=== PATIENT | male | born 1960 | race Caucasian/White ===

== ENCOUNTER 2016-06-11 18:33 | Inpatient (IN) | payer BC, OTHER ==
[2016-06-11 19:12] VITALS: BMI 19.1
--- NOTE | 2016-06-11 19:48 | HP ---
[id number] 4d 4-Moderate,w/Arms Extend Anxiety: 4-Mod. Anxious/Guarded Agitation: 4-Moderately Restless Paroxysmal Sweats: 1-Minimal Palms Moist Orientation: 1-Uncertain about Date Tacttile Disturbances: 0-None Auditory Disturbances: 0-None Visual Disturbances: 0-None Headache: 2-Mild CIWA-Ar Total Score: 17 Admission [facility] Chief Complaint: WITHDRAWAL SX Allergies/Adverse Reactions: Allergies Allergy/AdvReac Type Severity Reaction Status Date / Time peanut Allergy Mild Hives Verified 04/18/16 11:57 shellfish derived Allergy Mild Hives Verified 04/18/16 11:57 oxycodone HCl [From Percocet] AdvReac Severe Verified 04/18/16 11:57 EGG WHITE Allergy Mild Hives Uncoded 04/18/16 11:57 History of Present Illness: 55 YEARS OLD MALE WITH LONG HISTORY OF ALCOHOL NICOTINE DEPENDENCE, ASTHMA COPD GERD ANXIETY CHRONIC PANCRETITIS COLITIS, IS ADMITTED TO DETOX Exam Limitations: No Limitations - Ebola screening Have you traveled outside of the country in the last 21 days: No Have you had contact with anyone from an Ebola affected area: No Have you been sick,other than usual withdrawal symptoms: No Do you have a fever: No - Review of Systems Constitutional: Chills, Loss of Appetite, Changes in sleep, Unintentional Wgt. Loss EENT: reports: No Symptoms Reported Respiratory: reports: SOB with Exertion Cardiac: reports: Palpitations GI: reports: Nausea, Poor Appetite, Poor Fluid Intake, Indigestion, Abdominal cramping : reports: No Symptoms Reported Musculoskeletal: reports: Joint Pain, Muscle Pain Integumentary: reports: No Symptoms Reported Neuro: reports: Seizure (2014), Tremors Endocrine: reports: No Symptoms Reported Hematology: reports: No Symptoms Reported Psychiatric: reports: Judgement Intact, Anxious Other Systems: Reviewed and Negative Patient History - Patient Medical History Hx Anemia: No Hx Asthma: Yes (ON ALBUTEROL INHALER) Hx Chronic Obstructive Pulmonary Disease (COPD): Yes Hx Cancer: No Hx Cardiac Disorders: No Hx Congestive Heart Failure: No Hx Hypertension: No Hx Hypercholesterolemia: No Hx Pacemaker: No HX Cerebrovascular Accident: No Hx Seizures: Yes (alcohol related, jun 2015) Hx Dementia: No Hx Diabetes: No Hx Gastrointestinal Disorders: Yes (pancreatitis, colitis) Hx Liver Disease: No Hx Genitourinary Disorders: No Hx Sexually Transmitted Disorders: No Hx Renal Disease (ESRD): No Hx Thyroid Disease: No Hx Human Immunodeficiency Virus (HIV): No (LAST 12/27) Hx Hepatitis C: No Hx Depression: Yes (ANXIETY) Hx Suicide Attempt: No Hx Bipolar Disorder: No Hx Schizophrenia: No - Patient Surgical History Past Surgical History: Yes Hx Neurologic Surgery: No Hx Cataract Extraction: No Hx Cardiac Surgery: No Hx Lung Surgery: Yes (lung biopsy jun 2015 at , chest tube) Hx Breast Surgery: No Hx Breast Biopsy: No Hx Abdominal Surgery: Yes (LEFT INGUINAL HERNIA REPAIR AT AGE OF 4 YEARS) Hx Appendectomy: No Hx Cholecystectomy: No Hx Genitourinary Surgery: No Hx Orthopedic Surgery: No Other Surgical History: Hernia repair at 4yrs old Anesthesia Reaction: No - PPD History Previous Implant?: Yes Documented Results: Negative w/proof Implanted On Prior [facility] Admission?: Yes Date: 09/12/15 Results: 0 mm PPD to be Administered?: No - Smoking Cessation Smoking history: Current every day smoker Have you smoked in the past 12 months: Yes Aproximately how many cigarettes per day: 30 Cigars Per Day: 0 Hx Chewing Tobacco Use: No Initiated information on smoking cessation: Yes 'Breaking Loose' booklet given: 06/11/16 - Substance & Tx. History Hx Alcohol Use: Yes Hx Substance Use: No Substance Use Type: Alcohol Hx Substance Use Treatment: Yes - Substances Abused Alcohol Route: Oral Frequency: Daily Amount used: LIQUOR- 3 PINTS Age of first use: 17 Date of Last Use: 06/11/16 Family Disease History - Family Disease History Family Disease History: Other: Father (etoh , renal, ), Mother (etoh, sclerodoerma, ), Brother (schizophrenia) Admission Physical Exam S - Vital Signs Vital Signs: Vital Signs - 24 hr 06/11/16 19:08 Temperature 96.7 F L Pulse Rate 118 H Respiratory 20 Rate Blood Pressure 127/91 - Physical General Appearance: Yes: Appropriately Dressed, Moderate Distress, Alcohol on Breath, Thin, Tremorous, Irritable, Sweating, Anxious HEENTM: Yes: Hearing grossly Normal, Normal ENT Inspection, Normocephalic, Normal Voice Respiratory: Yes: Chest Non-Tender, Lungs Clear, Normal Breath Sounds, Decreased Breath Sounds (RIGHT MID LOBE), No Respiratory Distress, No Accessory Muscle Use, Hyperresonant, Inspiration Neck: Yes: Supple, Trachea in good position Breast: Yes: Breasts Symetrical Cardiology: Yes: Regular Rhythm, S1, S2, Tachycardia Abdominal: Yes: Non Tender, Soft, Increased Bowel Sounds Genitourinary: Yes: Within Normal Limits Back: Yes: Normal Inspection Musculoskeletal: Yes: full range of Motion, Gait Steady Extremities: Yes: Normal Range of Motion, Non-Tender, Tremors Neurological: Yes: Alert, Motor Strength 5/5, Normal Response, Depressed Affect Integumentary: Yes: Warm Lymphatic: Yes: Within Normal Limits - Diagnostic (1) Weight loss Current Visit: Yes Status: Acute Comment: ensure (2) Alcohol dependence with uncomplicated withdrawal Current Visit: Yes Status: Acute (3) Anxiety disorder Current Visit: Yes Status: Suspected Qualifiers: Anxiety disorder type: other mixed anxiety disorder Qualified Code(s ): F41.3 - Other mixed anxiety disorders (4) COPD (chronic obstructive pulmonary disease) Current Visit: Yes Status: Acute Qualifiers: COPD type: chronic bronchitis Chronic bronchitis type: simple Qualified Code(s): J41.0 - Simple chronic bronchitis (5) Chronic GERD Current Visit: Yes Status: Chronic (6) Nicotine dependence Current Visit: Yes Status: Acute Qualifiers: Nicotine product type: cigarettes Substance use status: uncomplicated Qualified Code(s): F17.210 - Nicotine dependence, cigarettes, uncomplicated (7) Ulcerative colitis Current Visit: Yes Status: Chronic Qualifiers: Ulcerative colitis location: unspecified ulcerative colitis location Digestive disease complication type: without complication Qualified Code( s): K51.90 - Ulcerative colitis, unspecified, without complications (8) Nodule of apex of right lung Current Visit: Yes Status: Chronic Comment: 04/2016 nodule biopsy negative - f/u chest x ray monthly, 05/2016 last x ray, Cleared for Admission [facility] - Detox or Rehab [facility] Level of Care: Medically Managed Detox Regimen/Protocol: Librium [facility] Breath Alcohol Content Breath Alcohol Content: 0.292 Urine Drug Screen - Control Is Test Valid: Yes - Results Drug Screen Negative: Yes
[2016-06-11] MEDS ORDERED: LOPERAMIDE HCL 2 MG CAPSULE PO PRN (19:53)
[2016-06-11] MEDS ORDERED: P-EPHED 60MG/TRIPROLIDI 2.5MG TABLET PO PRN (19:53)
[2016-06-11] MEDS ORDERED: MAGNESIUM CITRATE 300 ML BOTTLE PO PRN (19:53)
[2016-06-11] MEDS ORDERED: MAG HYDROX/AL HYDROX/SIMETH 30 ML UNIT-DOSE CUP PO PRN (19:53)
[2016-06-11] MEDS ORDERED: MAGNESIUM HYDROX 2400MG/30ML ORAL SUSPENSION 30 ML CUP PO PRN (19:53)
[2016-06-11] MEDS ORDERED: guaiFENesin/D-METHORPHAN HB 10 ML UNIT-DOSE CUPS PO PRN (19:53)
[2016-06-11] MEDS ORDERED: ACETAMINOPHEN 325 MG TABLET (FP) PO PRN (19:53)
[2016-06-11] MEDS ORDERED: IBUPROFEN 400 MG TABLET (FP) PO PRN (19:53)
[2016-06-11] MEDS ORDERED: MENTHOL/PHENOL 1 EACH UD MM PRN (19:53)
[2016-06-11] MEDS ORDERED: chlordiazePOXIDE HCL 25 MG CAPSULE PO ONE (19:58)
[2016-06-11] MEDS ORDERED: NICOTINE POLACRILEX 2 MG GUM BUC PRN (19:58)
[2016-06-11] MEDS ORDERED: hydrOXYzine PAMOATE 50 MG CAPSULE (FP) PO PRN (19:58)
[2016-06-11] MEDS ORDERED: ALBUTEROL SO4 6.7 GM HFA INHALER IH PRN (20:02)
[2016-06-11] MEDS ORDERED: MESALAMINE 800 MG TABLET.DR PO SCH (22:00)
[2016-06-11] MEDS: THIAMINE HCL 100 MG TABLET (FP) PO SCH (22:38)
[2016-06-11] MEDS: BUDESONIDE/FORMETEROL FUMARATE 80/4.5 mcg INHALER IH SCH (22:38)
[2016-06-11] MEDS: RANITIDINE HCL 150 MG TABLET (FP) PO SCH (22:39)
[2016-06-11] MEDS: chlordiazePOXIDE HCL 25 MG CAPSULE PO SCH (22:39)
[2016-06-11] MEDS: diphenhydrAMINE HCL 50 MG CAPSULE PO PRN (22:39)
[2016-06-12] MEDS: chlordiazePOXIDE HCL 25 MG CAPSULE PO SCH ×4 (05:29→22:21)
[2016-06-12] MEDS: LIPASE/PROTEASE/AMYLASE 6,000 UNIT CAPSULE PO SCH ×3 (07:42→16:37)
[2016-06-12] MEDS: RANITIDINE HCL 150 MG TABLET (FP) PO SCH ×2 (10:11→22:21)
[2016-06-12] MEDS: PRENATAL VITAMINS W/ FOLIC ACID TABLET (FP) PO SCH (10:11)
[2016-06-12] MEDS: BUDESONIDE/FORMETEROL FUMARATE 80/4.5 mcg INHALER IH SCH ×2 (10:11→22:28)
[2016-06-12] MEDS: NICOTINE 21 MG/24 HOURS TOPICAL PATCH TD SCH (10:12)
[2016-06-12] MEDS: MESALAMINE 800 MG TABLET.DR PO SCH ×4 (10:13→22:21)
[2016-06-12 10:58] LABS: MCH 34.5 pg (25.7-33.7); MCHC 33.6 g/dl (32.0-35.9); MEAN CELL VOLUME 102.6 fl (80-96); MEAN PLT VOLUME 9.8 fl (7.5-11.1); PLATELET COUNT 191 K/MM3 (134-434); RDW 13.9 % (11.9-15.9); WHITE BLOOD COUNT 7.8 K/mm3 (4.0-10.0)
[2016-06-12 11:24] LABS: ALBUMIN 3.6 g/dl (3.4-5.0); ALK PHOS 75 U/L (45-117); ANION GAP 6 (8-16); BILIRUBIN,TOTAL 0.3 mg/dL (0.2-1.0); CALCIUM 8.6 mg/dL (8.5-10.1); CO2 28 mmol/L (21-32); CREATININE 0.8 mg/dL (0.7-1.3); GLUCOSE,RANDOM 84 mg/dL (74-106); SGOT/AST 19 U/L (15-37); SGPT/ALT 28 U/L (12-78); TOT PROT 6.3 g/dl (6.4-8.2)
--- NOTE | 2016-06-12 12:45 | CONSULT ---
[facility] Psychiatric Consult - Data Date of interview: 06/12/16 Admission source: [facility] Identifying data: This is one of multiple admissions to [facility] for this 55 y/ o male seeking detox treatment on for alcohol dependence.Patient is a without children,domiciled,unemployed and supported on Disability benefits. Substance Abuse History: - Smoking Cessation. Smoking history: Current every day smoker. Have you smoked in the past 12 months: Yes. Aproximately how many cigarettes per day: 30. Cigars Per Day: 0. Hx Chewing Tobacco Use: No. Initiated information on smoking cessation: Yes. 'Breaking Loose' booklet given : 06/11/16. - Substance & Tx. History. Hx Alcohol Use: Yes. Hx Substance Use : No. Substance Use Type: Alcohol. Hx Substance Use Treatment: Yes. - Substances Abused. Alcohol. Route: Oral. Frequency: Daily. Amount used: LIQUOR- 3 PINTS. Age of first use: 17. Date of Last Use: 06/11/16. Confirmed by patient. Medical History: Significant for a history of bronchial asthma/COPD,GERD, pancreatitis,alcohol-related seizure and Ulcerative Colitis.Noted history of left inguinal hernioraphy. Psychiatric History: No change in personal history since encounter of 2015.History as follows : diagnosed with MDD in 1994.No previous history of psychiatric hospitalizations.Patient used to be on Paxil 30 mg po daily + Buspar 30 mg po HS (prescribed by primary care provider).Mr Rodriguez indicates ,in this interview,that he "would like to restart treatment only with buspar in two divided doses of 15 mg per day.No reported history of suicide attempts. Physical/Sexual Abuse/Trauma History: Patient denies. Additional Comment: Drug screen is negative. Mental Status Exam - Mental Status Exam Alert and Oriented to: Time, Place, Person Cognitive Function: Good Patient Appearance: Well Groomed Mood: Nervous, Anxious, Apprehensive Affect: Mood Congruent Patient Behavior: Appropriate, Cooperative Speech Pattern: Clear, Appropriate Voice Loudness: Normal Thought Process: Goal Oriented Thought Disorder: Not Present Hallucinations: Denies Suicidal Ideation: Denies Homicidal Ideation: Denies Insight/Judgement: Poor Sleep: Fair Appetite: Good Muscle strength/Tone: Normal Gait/Station: Normal Psychiatric Findings - Problem List ([place] 1, 2,3) (1) Alcohol dependence with uncomplicated withdrawal Current Visit: Yes Status: Acute (2) Nicotine dependence Current Visit: Yes Status: Acute Qualifiers: Nicotine product type: cigarettes Substance use status: uncomplicated Qualified Code(s): F17.210 - Nicotine dependence, cigarettes, uncomplicated (3) Substance induced mood disorder Current Visit: Yes Status: Acute (4) Anxiety disorder Current Visit: Yes Status: Chronic Qualifiers: Anxiety disorder type: other mixed anxiety disorder Qualified Code(s ): F41.3 - Other mixed anxiety disorders (5) COPD (chronic obstructive pulmonary disease) Current Visit: Yes Status: Acute Qualifiers: COPD type: chronic bronchitis Chronic bronchitis type: simple Qualified Code(s): J41.0 - Simple chronic bronchitis (6) Chronic GERD Current Visit: Yes Status: Chronic (7) Nodule of apex of right lung Current Visit: Yes Status: Chronic Comment: 04/2016 nodule biopsy negative - f/u chest x ray monthly, 05/2016 last x ray, (8) Chronic low back pain with right-sided sciatica Current Visit: Yes Status: Chronic (9) Ulcerative colitis Current Visit: Yes Status: Chronic Qualifiers: Ulcerative colitis location: unspecified ulcerative colitis location Digestive disease complication type: without complication Qualified Code( s): K51.90 - Ulcerative colitis, unspecified, without complications (10) Weight loss Current Visit: Yes Status: Acute Comment: ensure - Initial Treatment Plan Initial Treatment Plan: Psychoeducation.Detoxification.Buspar 15 mg po bid.Side effects/benefits discussed with patient.Patient agrees with this plan of care.Observation.
[2016-06-12] MEDS: chlordiazePOXIDE HCL 25 MG CAPSULE PO PRN (13:04)
[2016-06-12 13:05] LABS: HIV 1 & 2 AB NEGATIVE; HIV 1 AGp24 NEGATIVE
--- NOTE | 2016-06-12 15:42 | PN ---
S CIWA - CIWA Score Nausea/Vomitin-No Nausea/No Vomiting Muscle Tremors: 4-Moderate,w/Arms Extend Anxiety: 4-Mod. Anxious/Guarded Agitation: 3 Paroxysmal Sweats: 3 Orientation: 0-Oriented Tacttile Disturbances: 0-None Auditory Disturbances: 0-None Visual Disturbances: 0-None Headache: 0-None Present CIWA-Ar Total Score: 14 BHS Progress Note (SOAP) Subjective: SWEATING,ANXIETY,TREMORS,INTERRUPTED SLEEP,RESTLESS. Objective: 06/12/16 15:41 Vital Signs - 8 hr 06/12/16 06/12/16 10:23 13:36 Temperature 96.8 F L 98.6 F Pulse Rate 90 88 Respiratory 20 18 Rate Blood Pressure 122/83 125/86 Laboratory Tests 06/12/16 06/12/16 06/12/16 06:30 06:30 06:30 WBC 7.8 RBC 3.97 L Hgb 13.7 Hct 40.8 MCV 102.6 H MCHC 33.6 RDW 13.9 Plt Count 191 MPV 9.8 Sodium 141 Potassium 4.3 Chloride 107 Carbon Dioxide 28 Anion Gap 6 L BUN 15 D Creatinine 0.8 Creat Clearance w eGFR > 60 Random Glucose 84 Calcium 8.6 Total Bilirubin 0.3 D AST 19 D ALT 28 Alkaline Phosphatase 75 Total Protein 6.3 L Albumin 3.6 RPR Titer HIV 1&2 Antibody Screen Negative HIV P24 Antigen Negative 06/12/16 06:30 WBC RBC Hgb Hct MCV MCHC RDW Plt Count MPV Sodium Potassium Chloride Carbon Dioxide Anion Gap BUN Creatinine Creat Clearance w eGFR Random Glucose Calcium Total Bilirubin AST ALT Alkaline Phosphatase Total Protein Albumin RPR Titer Nonreactive HIV 1&2 Antibody Screen HIV P24 Antigen LABS NOTED Assessment: 06/12/16 15:42 WITHDRAWAL SX. Plan: CONTINUE DETOX
[2016-06-12 16:03] LABS: URINE APPEARANCE CLEAR; URINE BILIRUBIN NEGATIVE (NEGATIVE); URINE BLOOD NEGATIVE (NEGATIVE); URINE COLOR YELLOW; URINE GLUCOSE (UA) NEGATIVE (NEGATIVE); URINE KETONE NEGATIVE (NEGATIVE); URINE LEUK ESTERASE NEGATIVE (NEGATIVE); URINE NITRITE NEGATIVE (NEGATIVE); URINE PROTEIN NEGATIVE (NEGATIVE); URINE UROBILINOGEN NEGATIVE E.U./dl (0.2-1.0)
[2016-06-12] MEDS: diphenhydrAMINE HCL 50 MG CAPSULE PO PRN (22:21)
[2016-06-12] MEDS: THIAMINE HCL 100 MG TABLET (FP) PO SCH (22:21)
[2016-06-13] MEDS: chlordiazePOXIDE HCL 25 MG CAPSULE PO PRN (02:07)
[2016-06-13] MEDS: chlordiazePOXIDE HCL 25 MG CAPSULE PO SCH ×3 (05:22→17:39)
[2016-06-13] MEDS: LIPASE/PROTEASE/AMYLASE 6,000 UNIT CAPSULE PO SCH ×3 (07:54→17:38)
[2016-06-13 08:07] LABS: HEP B SURFACE AB Non Reactive (.)
[2016-06-13] MEDS: MESALAMINE 800 MG TABLET.DR PO SCH ×4 (10:37→22:31)
[2016-06-13] MEDS: RANITIDINE HCL 150 MG TABLET (FP) PO SCH ×2 (10:37→22:32)
[2016-06-13] MEDS: NICOTINE 21 MG/24 HOURS TOPICAL PATCH TD SCH (10:38)
[2016-06-13] MEDS: PRENATAL VITAMINS W/ FOLIC ACID TABLET (FP) PO SCH (10:38)
[2016-06-13] MEDS: BUDESONIDE/FORMETEROL FUMARATE 80/4.5 mcg INHALER IH SCH ×2 (10:39→22:30)
--- NOTE | 2016-06-13 12:59 | PN ---
S CIWA - CIWA Score Nausea/Vomitin-No Nausea/No Vomiting Muscle Tremors: 3 Anxiety: 4-Mod. Anxious/Guarded Agitation: 4-Moderately Restless Paroxysmal Sweats: 3 Orientation: 0-Oriented Tacttile Disturbances: 0-None Auditory Disturbances: 0-None Visual Disturbances: 0-None Headache: 0-None Present CIWA-Ar Total Score: 14 BHS Progress Note (SOAP) Subjective: SWEATING,INTERRUPTED SLEEP,ANXIETY,TREMORS,RESTLESS. Objective: 06/13/16 12:57 Vital Signs - 8 hr 06/13/16 06/13/16 06:07 09:54 Temperature 97.9 F 95.8 F L Pulse Rate 76 81 Respiratory 18 18 Rate Blood Pressure 119/77 131/89 Laboratory Tests 06/12/16 06/12/16 06/12/16 06:30 06:30 06:30 WBC 7.8 RBC 3.97 L Hgb 13.7 Hct 40.8 MCV 102.6 H MCHC 33.6 RDW 13.9 Plt Count 191 MPV 9.8 Sodium 141 Potassium 4.3 Chloride 107 Carbon Dioxide 28 Anion Gap 6 L BUN 15 D Creatinine 0.8 Creat Clearance w eGFR > 60 Random Glucose 84 Calcium 8.6 Total Bilirubin 0.3 D AST 19 D ALT 28 Alkaline Phosphatase 75 Total Protein 6.3 L Albumin 3.6 Urine Color Urine Appearance Urine pH Ur Specific [place] Urine Protein Urine Glucose (UA) Urine Ketones Urine Blood Urine Nitrite Urine Bilirubin Urine Urobilinogen Ur Leukocyte Esterase RPR Titer Hepatitis A Ab Total Hep Bs Antigen Hep Bs Antibody Hep B Core Total Ab HIV 1&2 Antibody Screen Negative HIV P24 Antigen Negative 06/12/16 06/12/16 06/12/16 06:30 06:30 13:00 WBC RBC Hgb Hct MCV MCHC RDW Plt Count MPV Sodium Potassium Chloride Carbon Dioxide Anion Gap BUN Creatinine Creat Clearance w eGFR Random Glucose Calcium Total Bilirubin AST ALT Alkaline Phosphatase Total Protein Albumin Urine Color Yellow Urine Appearance Clear Urine pH 7.0 D Ur Specific [place] 1.025 Urine Protein Negative Urine Glucose (UA) Negative Urine Ketones Negative Urine Blood Negative Urine Nitrite Negative Urine Bilirubin Negative Urine Urobilinogen Negative Ur Leukocyte Esterase Negative RPR Titer Nonreactive Hepatitis A Ab Total Negative Hep Bs Antigen Negative Hep Bs Antibody Non reactive Hep B Core Total Ab Negative HIV 1&2 Antibody Screen HIV P24 Antigen LABS NOTED Assessment: 06/13/16 12:57 WITHDRAWAL SX. Plan: CONTINUE DETOX
[2016-06-13 22:08] VITALS: BP 124/85; PULSE 96; TEMP 98.1
[2016-06-13] MEDS: THIAMINE HCL 100 MG TABLET (FP) PO SCH (22:31)
[2016-06-13] MEDS: diphenhydrAMINE HCL 50 MG CAPSULE PO PRN (22:32)
[2016-06-13] MEDS ORDERED: chlordiazePOXIDE 5 MG CAPSULE PO SCH (23:00)
[2016-06-14] MEDS: diphenhydrAMINE HCL 50 MG CAPSULE PO PRN (00:40)
--- NOTE | 2016-06-14 04:01 | PN ---
[facility] Progress Note Note: patient did not want to complete treatment,signed release ama
--- NOTE | 2016-06-14 04:08 | DS ---
[facility] Detox Discharge Summary Admission Date: 06/11/16 Discharge Date: 06/14/16 - History Present History: Alcohol Dependence Additional Comments: patient did not want to complete treatment,signed release ama,advise follow up with pmd for medical problem has his medications at home Pertinent Past History: copd nicotine dependence gerd pancreatitis ulcerative colitis - Physical Exam Results Vital Signs: Vital Signs Temperature 98.1 F 06/13/16 22:07 Pulse Rate 96 H 06/13/16 22:07 Respiratory Rate 18 06/14/16 00:10 Blood Pressure 124/85 06/13/16 22:07 O2 Sat by Pulse Oximetry (%) Pertinent Admission Physical Exam Findings: withdrawal symptom - Medication Discharge Medications: Ambulatory Orders Pantoprazole Sodium [Protonix] 40 mg PO DAILY 09/10/15 Albuterol Sulfate Inhaler - [Ventolin HFA Inhaler -] 2 inh PO Q4H PRN #1 inhaler 11/18/15 Lipase/Protease/Amylase [Eunice Azevedo 6,000 Units Capsule] 2 cap PO TIDCM #120 capsule. 11/18/15 Mesalamine [Asacol HD -] 800 mg PO QID #120 tablet. 11/18/15 Budesonide/Formeterol Fumarate [SYMBICORT 80/4.5mcg -] 2 inh PO BID 02/17/16 Buspirone HCl [Buspar -] 15 mg PO BID 04/18/16 Buspirone HCl [Buspar -] 15 mg PO BID #60 tablet 04/20/16 Buspirone HCl [Buspar -] 15 mg PO BID #60 tablet 06/12/16 - AMA Did Patient Leave Against Medical Advice: Yes
[2016-06-14] MEDS ORDERED: chlordiazePOXIDE HCL 10 MG CAPSULE PO SCH (23:00)
== END 2016-06-14 04:37 | disposition left against medical advice (07) | DRG 894 ==
LOC: YASAS 18:33 → Y3N 19:44
PROVIDERS: ADMIT Internal Medicine; ATTEND Internal Medicine
PROC: HZ2ZZZZ Detoxification Services for Substance Abuse Treatment (ICD-10-PCS; principal; 2016-06-11)
DX: F10.230 Alcohol dependence with withdrawal, uncomplicated (principal); K51.90 Ulcerative colitis, unspecified, without complications; F17.210 Nicotine dependence, cigarettes, uncomplicated; F19.24 Other psychoactive substance dependence with psychoactive substance-induced mood disorder; F41.3 Other mixed anxiety disorders; J45.909 Unspecified asthma, uncomplicated; J41.0 Simple chronic bronchitis; K21.9 Gastro-esophageal reflux disease without esophagitis; R00.0 Tachycardia, unspecified; R91.1 Solitary pulmonary nodule; Z87.19 Personal history of other diseases of the digestive system; Z86.69 Personal history of other diseases of the nervous system and sense organs; Z87.898 Personal history of other specified conditions
CPT/HCPCS: 36415; 80053; 81003; 85027; 86593; 86704; 86706; 86708; 87340; 87389; 93005; 93010

== ENCOUNTER 2016-08-07 10:36 | Inpatient (IN) | payer BC, OTHER ==
[2016-08-07 11:20] VITALS: BMI 19.1
--- NOTE | 2016-08-07 13:07 | HP ---
CIWA Score - CIWA Score Nausea/Vomitin Muscle Tremors: 3 Anxiety: 3 Agitation: 3 Paroxysmal Sweats: 2 Orientation: 0-Oriented Tacttile Disturbances: 2-Mild Itch/Numbness/Burn Auditory Disturbances: 2-Mild Harshness/Frighten Visual Disturbances: 2-Mild Sensitivity Headache: 2-Mild CIWA-Ar Total Score: 22 Admission ROS [facility] - HPI Chief Complaint: I NEED HELP TO STOP DRINKING Allergies/Adverse Reactions: Allergies Allergy/AdvReac Type Severity Reaction Status Date / Time peanut Allergy Mild Hives Verified 04/18/16 11:57 shellfish derived Allergy Mild Hives Verified 04/18/16 11:57 oxycodone HCl [From Percocet] AdvReac Severe Verified 04/18/16 11:57 EGG WHITE Allergy Mild Hives Uncoded 04/18/16 11:57 History of Present Illness: THIS 55 YEARS OLD MALE WITH ALCOHOL DEPENDENCE,WITHDRAWAL SYMPTOM,LAST DETOX SEIZURE ALCOHOL RELATED PANCREATITIS ASTHMA NICOTINE DEPENDENCE LONGEST PERIOD OF SOBRIETY 1 YEAR SEVERAL ADMISSIONS IN DETOX Exam Limitations: No Limitations - Ebola screening Have you traveled outside of the country in the last 21 days: No Have you had contact with anyone from an Ebola affected area: No Have you been sick,other than usual withdrawal symptoms: No Do you have a fever: No - Review of Systems Constitutional: Loss of Appetite, Malaise, Night Sweats, Changes in sleep, Weakness, Unintentional Wgt. Loss EENT: reports: Nose Congestion Respiratory: reports: No Symptoms reported Cardiac: reports: Palpitations GI: reports: Diarrhea, Nausea, Vomiting, Abdominal cramping : reports: No Symptoms Reported Musculoskeletal: reports: Back Pain, Muscle Pain Integumentary: reports: Dryness Neuro: reports: Headache, Tremors Endocrine: reports: No Symptoms Reported Hematology: reports: No Symptoms Reported Psychiatric: reports: Anxious, Depressed (INSOMNIA) Patient History - Patient Medical History Hx Anemia: No Hx Asthma: Yes (ON ALBUTEROL INHALER) Hx Chronic Obstructive Pulmonary Disease (COPD): Yes Hx Cancer: No Hx Cardiac Disorders: No Hx Congestive Heart Failure: No Hx Hypertension: No Hx Hypercholesterolemia: No Hx Pacemaker: No HX Cerebrovascular Accident: No Hx Seizures: Yes (alcohol related, jun 2015) Hx Dementia: No Hx Diabetes: No Hx Gastrointestinal Disorders: Yes (pancreatitis, colitis) Hx Liver Disease: No Hx Genitourinary Disorders: No Hx Sexually Transmitted Disorders: No Hx Renal Disease (ESRD): No Hx Thyroid Disease: No Hx Human Immunodeficiency Virus (HIV): No (LAST 12/27) Hx Hepatitis C: No Hx Depression: Yes (ANXIETY) Hx Suicide Attempt: No Hx Bipolar Disorder: No Hx Schizophrenia: No Other Medical History: NO SUICIDAL,NO HOMICIDAL - Patient Surgical History Past Surgical History: Yes Hx Neurologic Surgery: No Hx Cataract Extraction: No Hx Cardiac Surgery: No Hx Lung Surgery: Yes (lung biopsy jun 2015 at , chest tube) Hx Breast Surgery: No Hx Breast Biopsy: No Hx Abdominal Surgery: Yes (LEFT INGUINAL HERNIA REPAIR AT AGE OF 4 YEARS) Hx Appendectomy: No Hx Cholecystectomy: No Hx Genitourinary Surgery: No Hx Section: No Hx Orthopedic Surgery: No Other Surgical History: Hernia repair at 4yrs old Anesthesia Reaction: No - PPD History Previous Implant?: Yes Documented Results: Negative w/proof Date: 09/12/15 Results: 0 mm PPD to be Administered?: No - Smoking Cessation Smoking history: Current every day smoker Have you smoked in the past 12 months: Yes Aproximately how many cigarettes per day: 30 Cigars Per Day: 0 Hx Chewing Tobacco Use: No Initiated information on smoking cessation: Yes 'Breaking Loose' booklet given: 08/07/16 - Substance & Tx. History Hx Alcohol Use: Yes Hx Substance Use: No Substance Use Type: Alcohol Hx Substance Use Treatment: Yes ([facility] ) - Substances Abused Alcohol Route: Oral Frequency: Daily Amount used: Vodka 3 pints Age of first use: 17 Date of Last Use: 08/07/16 Family Disease History - Family Disease History Family Disease History: Other: Father (etoh , renal, ), Mother (etoh, sclerodoerma, ), Brother (schizophrenia) Admission Physical Exam [facility] - Vital Signs Vital Signs: Vital Signs - 24 hr 08/07/16 11:15 Temperature 98.6 F Pulse Rate 128 H Respiratory 20 Rate Blood Pressure 136/80 - Physical General Appearance: Yes: Moderate Distress, Tremorous, Irritable, Sweating, Anxious HEENTM: Yes: Nasal Congestion Respiratory: Yes: Lungs Clear, Other (NODULE LEFT LUNG S/P BIOPSY) Neck: Yes: Within Normal Limits Breast: Yes: Within Normal Limits Cardiology: Yes: Within Normal Limits, Regular Rhythm, Regular Rate, S1, S2 Abdominal: Yes: Within Normal Limits, Normal Bowel Sounds, Non Tender, Soft Genitourinary: Yes: Within Normal Limits Back: Yes: Muscle Spasm Musculoskeletal: Yes: Back pain, Joint Stiffness, Muscle Pain Extremities: Yes: Tremors Neurological: Yes: Within Normal Limits, 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 consultant 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 intact, Fully Oriented, Alert, Motor Strength 5/5 Integumentary: Yes: Dry Lymphatic: Yes: Within Normal Limits - Diagnostic (1) Alcohol dependence with uncomplicated withdrawal Current Visit: No Status: Acute (2) COPD (chronic obstructive pulmonary disease) Current Visit: No Status: Acute Qualifiers: Qualified Code(s): J41.0 - Simple chronic bronchitis (3) Weight loss Current Visit: No Status: Acute Comment: ensure (4) Nodule of apex of right lung Current Visit: No Status: Chronic Comment: 04/2016 nodule biopsy negative - f/u chest x ray monthly, 05/2016 last x ray, (5) Ulcerative colitis Current Visit: No Status: Chronic Qualifiers: Qualified Code(s): K51.90 - Ulcerative colitis, unspecified, without complications (6) MDD (major depressive disorder) Current Visit: No Status: Suspected (7) Acute alcoholic pancreatitis Current Visit: Yes Status: Acute (8) Alcohol related seizure Current Visit: Yes Status: Acute (9) Nicotine dependence Current Visit: No Status: Acute Qualifiers: Qualified Code(s): F17.210 - Nicotine dependence, cigarettes, uncomplicated (10) Chronic GERD Current Visit: No Status: Chronic Cleared for Admission [facility] - Detox or Rehab [facility] Level of Care: Medically Managed Detox Regimen/Protocol: Librium S Breath Alcohol Content Breath Alcohol Content: 0.111 Urine Drug Screen - Results Drug Screen Negative: Yes
[2016-08-07] MEDS ORDERED: ACETAMINOPHEN 325 MG TABLET (FP) PO PRN (13:17)
[2016-08-07] MEDS ORDERED: MAGNESIUM HYDROX 2400MG/30ML ORAL SUSPENSION 30 ML CUP PO PRN (13:17)
[2016-08-07] MEDS ORDERED: MAGNESIUM CITRATE 300 ML BOTTLE PO PRN (13:17)
[2016-08-07] MEDS ORDERED: IBUPROFEN 400 MG TABLET (FP) PO PRN (13:17)
[2016-08-07] MEDS ORDERED: MAG HYDROX/AL HYDROX/SIMETH 30 ML UNIT-DOSE CUP PO PRN (13:17)
[2016-08-07] MEDS ORDERED: LOPERAMIDE HCL 2 MG CAPSULE PO PRN (13:17)
[2016-08-07] MEDS ORDERED: guaiFENesin/D-METHORPHAN HB 10 ML UNIT-DOSE CUPS PO PRN (13:17)
[2016-08-07] MEDS ORDERED: MENTHOL/PHENOL 1 EACH UD MM PRN (13:17)
[2016-08-07] MEDS ORDERED: P-EPHED 60MG/TRIPROLIDI 2.5MG TABLET PO PRN (13:17)
[2016-08-07] MEDS ORDERED: ALBUTEROL SO4 6.7 GM HFA INHALER IH PRN (13:34)
[2016-08-07] MEDS ORDERED: chlordiazePOXIDE HCL 25 MG CAPSULE PO ONE (13:47)
[2016-08-07] MEDS: MESALAMINE 800 MG TABLET.DR PO SCH ×3 (14:14→22:20)
--- NOTE | 2016-08-07 14:35 | CONSULT ---
[facility] Psychiatric Consult - Data Date of interview: 08/07/16 Admission source: [facility] Identifying data: Another admission to [facility] for this 55 y/o male seeking detox treatment on for alcohol dependence.Patient is a without children,domiciled,unemployed and supported on Disability benefits. Substance Abuse History: - Smoking Cessation. Smoking history: Current every day smoker. Have you smoked in the past 12 months: Yes. Aproximately how many cigarettes per day: 30. Cigars Per Day: 0. Hx Chewing Tobacco Use: No. Initiated information on smoking cessation: Yes. 'Breaking Loose' booklet given : 08/07/16. - Substance & Tx. History. Hx Alcohol Use: Yes. Hx Substance Use : No. Substance Use Type: Alcohol. Hx Substance Use Treatment: Yes ([facility] ). Confirmed by the patient in this interview. Medical History: History of bronchial asthma/COPD,GERD,pancreatitis,alcohol- related seizure and Ulcerative Colitis.Noted history of left inguinal hernioraphy. Psychiatric History: Diagnosed with MDD.No previous history of psychiatric hospitalizations.Patient reports that he is no longer on Paxil but he is still prescribed Buspar 15 mg po bid by his primary care doctor.Mr Rodriguez requests that buspar be a component of this regimen of medications.No reported history of suicide attempts. Physical/Sexual Abuse/Trauma History: Patient denies. Mental Status Exam - Mental Status Exam Alert and Oriented to: Time, Place, Person Cognitive Function: Good Patient Appearance: Well Groomed Mood: Hopeful, Euthymic Affect: Appropriate, Normal Range Patient Behavior: Fatigued, Appropriate, Cooperative Speech Pattern: Clear, Appropriate Voice Loudness: Normal Thought Process: Goal Oriented Thought Disorder: Not Present Hallucinations: Denies Suicidal Ideation: Denies Homicidal Ideation: Denies Insight/Judgement: Fair Sleep: Well Appetite: Good Muscle strength/Tone: Normal Gait/Station: Normal Psychiatric Findings - Problem List ([place] 1, 2,3) (1) Alcohol dependence with uncomplicated withdrawal Current Visit: Yes Status: Acute (2) Nicotine dependence Current Visit: Yes Status: Acute Qualifiers: Nicotine product type: cigarettes Substance use status: uncomplicated Qualified Code(s): F17.210 - Nicotine dependence, cigarettes, uncomplicated (3) Substance induced mood disorder Current Visit: Yes Status: Acute (4) Anxiety disorder Current Visit: Yes Status: Chronic Qualifiers: Anxiety disorder type: other mixed anxiety disorder Qualified Code(s ): F41.3 - Other mixed anxiety disorders (5) COPD (chronic obstructive pulmonary disease) Current Visit: Yes Status: Chronic Qualifiers: COPD type: chronic bronchitis Chronic bronchitis type: simple Qualified Code(s): J41.0 - Simple chronic bronchitis (6) Chronic GERD Current Visit: Yes Status: Chronic (7) Chronic low back pain with right-sided sciatica Current Visit: Yes Status: Chronic (8) Nodule of apex of right lung Current Visit: Yes Status: Chronic Comment: 04/2016 nodule biopsy negative - f/u chest x ray monthly, 05/2016 last x ray, (9) Ulcerative colitis Current Visit: Yes Status: Chronic Qualifiers: Ulcerative colitis location: unspecified ulcerative colitis location Digestive disease complication type: without complication Qualified Code( s): K51.90 - Ulcerative colitis, unspecified, without complications - Initial Treatment Plan Initial Treatment Plan: Psychoeducation.Detoxification.Buspar 15 mg po bid.Side effects/benefits discussed with the patient.He agrees with this plan.Observation.
[2016-08-07 16:32] LABS: URINE APPEARANCE CLEAR; URINE BILIRUBIN NEGATIVE (NEGATIVE); URINE BLOOD NEGATIVE (NEGATIVE); URINE COLOR LTYELLOW; URINE GLUCOSE (UA) NEGATIVE (NEGATIVE); URINE KETONE NEGATIVE (NEGATIVE); URINE LEUK ESTERASE NEGATIVE (NEGATIVE); URINE NITRITE NEGATIVE (NEGATIVE); URINE PROTEIN NEGATIVE (NEGATIVE); URINE UROBILINOGEN NEGATIVE E.U./dl (0.2-1.0)
[2016-08-07] MEDS: LIPASE/PROTEASE/AMYLASE 6,000 UNIT CAPSULE PO SCH (17:06)
[2016-08-07] MEDS: chlordiazePOXIDE HCL 25 MG CAPSULE PO SCH ×2 (17:06→22:19)
[2016-08-07] MEDS: BUDESONIDE/FORMETEROL FUMARATE 80/4.5 mcg INHALER IH SCH (22:20)
[2016-08-07] MEDS: THIAMINE HCL 100 MG TABLET (FP) PO SCH (22:20)
[2016-08-08] MEDS: chlordiazePOXIDE HCL 25 MG CAPSULE PO SCH ×4 (05:35→22:12)
[2016-08-08] MEDS: LIPASE/PROTEASE/AMYLASE 6,000 UNIT CAPSULE PO SCH ×4 (07:39→17:19)
[2016-08-08 09:17] LABS: HIV 1 & 2 AB NEGATIVE; HIV 1 AGp24 NEGATIVE
[2016-08-08 10:06] LABS: MCH 34.3 pg (25.7-33.7); MCHC 33.5 g/dl (32.0-35.9); MEAN CELL VOLUME 102.3 fl (80-96); MEAN PLT VOLUME 9.6 fl (7.5-11.1); PLATELET COUNT 225 K/MM3 (134-434); RDW 14.2 % (11.9-15.9); WHITE BLOOD COUNT 7.9 K/mm3 (4.0-10.0)
[2016-08-08] MEDS: MESALAMINE 800 MG TABLET.DR PO SCH ×4 (10:11→22:12)
[2016-08-08] MEDS: BUDESONIDE/FORMETEROL FUMARATE 80/4.5 mcg INHALER IH SCH ×2 (10:12→22:13)
[2016-08-08] MEDS: PANTOPRAZOLE 40 MG TABLET (FP) PO SCH (10:12)
[2016-08-08] MEDS: PRENATAL VITAMINS W/ FOLIC ACID TABLET (FP) PO SCH (10:12)
[2016-08-08] MEDS: NICOTINE 21 MG/24 HOURS TOPICAL PATCH TD SCH (10:13)
[2016-08-08] MEDS ORDERED: BISACODYL 5 MG TABLET.DR (FP) PO ONE (10:30)
[2016-08-08 10:41] LABS: ALK PHOS 92 U/L (45-117); ANION GAP 12 (8-16); BILIRUBIN,TOTAL 0.2 mg/dL (0.2-1.0); CALCIUM 8.5 mg/dL (8.5-10.1); CO2 25 mmol/L (21-32); CREATININE 0.9 mg/dL (0.7-1.3); GLUCOSE,RANDOM 111 mg/dL (74-106); SGOT/AST 59 U/L (15-37); SGPT/ALT 99 U/L (12-78)
--- NOTE | 2016-08-08 12:41 | PN ---
S CIWA - CIWA Score Nausea/Vomitin-Int. Nausea w/Dry Heave Muscle Tremors: 3 Anxiety: 3 Agitation: 4-Moderately Restless Paroxysmal Sweats: No Perspiration Orientation: 0-Oriented Tacttile Disturbances: 1-Very Mild Itch/Numbness Auditory Disturbances: 0-None Visual Disturbances: 0-None Headache: 3-Moderate CIWA-Ar Total Score: 18 S Progress Note (SOAP) Subjective: Restlessness, Anxiety, interrupted sleep, chills, poor appetite Objective: Vital Signs Temperature 95.7 F L 08/08/16 10:00 Pulse Rate 86 08/08/16 10:00 Respiratory Rate 18 08/08/16 10:00 Blood Pressure 131/89 08/08/16 10:00 O2 Sat by Pulse Oximetry (%) Laboratory Last Values WBC 7.9 K/mm3 (4.0-10.0) 08/08/16 06:20 RBC 4.09 M/mm3 (4.00-5.60) 08/08/16 06:20 Hgb 14.0 GM/dL (11.7-16.9) 08/08/16 06:20 Hct 41.9 % (35.4-49) 08/08/16 06:20 MCV 102.3 fl (80-96) H 08/08/16 06:20 MCHC 33.5 g/dl (32.0-35.9) 08/08/16 06:20 RDW 14.2 % (11.9-15.9) 08/08/16 06:20 Plt Count 225 K/MM3 (134-434) 08/08/16 06:20 MPV 9.6 fl (7.5-11.1) 08/08/16 06:20 Sodium 143 mmol/L (136-145) 08/08/16 06:20 Potassium 4.1 mmol/L (3.5-5.1) 08/08/16 06:20 Chloride 106 mmol/L (98-107) 08/08/16 06:20 Carbon Dioxide 25 mmol/L (21-32) 08/08/16 06:20 Anion Gap 12 (8-16) 08/08/16 06:20 BUN 12 mg/dL (7-18) 08/08/16 06:20 Creatinine 0.9 mg/dL (0.7-1.3) 08/08/16 06:20 Creat Clearance w eGFR > 60 (>60) 08/08/16 06:20 Random Glucose 111 mg/dL (74-106) H D 08/08/16 06:20 Calcium 8.5 mg/dL (8.5-10.1) 08/08/16 06:20 Total Bilirubin 0.2 mg/dL (0.2-1.0) D 08/08/16 06:20 AST 59 U/L (15-37) H D 08/08/16 06:20 ALT 99 U/L (12-78) H D 08/08/16 06:20 Alkaline Phosphatase 92 U/L (45-117) D 08/08/16 06:20 Total Protein 7.0 g/dl (6.4-8.2) 08/08/16 06:20 Albumin 4.0 g/dl (3.4-5.0) 08/08/16 06:20 Urine Color Ltyellow 08/07/16 15:00 Urine Appearance Clear 08/07/16 15:00 Urine pH 6.0 (5.0-8.0) 08/07/16 15:00 Ur Specific [place] 1.011 (1.001-1.035) 08/07/16 15:00 Urine Protein Negative (NEGATIVE) 08/07/16 15:00 Urine Glucose (UA) Negative (NEGATIVE) 08/07/16 15:00 Urine Ketones Negative (NEGATIVE) 08/07/16 15:00 Urine Blood Negative (NEGATIVE) 08/07/16 15:00 Urine Nitrite Negative (NEGATIVE) 08/07/16 15:00 Urine Bilirubin Negative (NEGATIVE) 08/07/16 15:00 Urine Urobilinogen Negative E.U./dl (0.2-1.0) 08/07/16 15:00 Ur Leukocyte Esterase Negative (NEGATIVE) 08/07/16 15:00 Hepatitis C Antibody <0.1 s/co ratio (0.0-0.9) 08/07/16 13:00 HIV 1&2 Antibody Screen Negative 08/07/16 13:00 HIV P24 Antigen Negative 08/07/16 13:00 labs noted Assessment: Withdrawal Symptoms Plan: Ensure BID Continue Detox
--- NOTE | 2016-08-08 21:08 | EKG ---
Test Reason : Blood Pressure : / mmHG Vent. Rate : 111 BPM Atrial Rate : 111 BPM P-R Int : 164 ms QRS Dur : 100 ms QT Int : 320 ms P-R-T Axes : 058 072 046 degrees QTc Int : 435 ms SINUS TACHYCARDIA OTHERWISE NORMAL ECG NO PREVIOUS ECGS AVAILABLE Confirmed by CHRISTINE SEPULVEDA MD ([id number]) on 08/08/2016 9:07:51 PM Referred By: Confirmed By:CHRISTINE SEPULVEDA MD
[2016-08-08] MEDS: THIAMINE HCL 100 MG TABLET (FP) PO SCH (22:12)
[2016-08-08] MEDS: diphenhydrAMINE HCL 50 MG CAPSULE PO PRN (22:14)
[2016-08-09] MEDS: chlordiazePOXIDE HCL 25 MG CAPSULE PO PRN (01:37)
[2016-08-09] MEDS: diphenhydrAMINE HCL 50 MG CAPSULE PO PRN ×2 (01:37→22:12)
[2016-08-09] MEDS: chlordiazePOXIDE HCL 25 MG CAPSULE PO SCH ×2 (06:00→10:09)
[2016-08-09] MEDS: LIPASE/PROTEASE/AMYLASE 6,000 UNIT CAPSULE PO SCH ×3 (07:27→17:19)
[2016-08-09] MEDS: NICOTINE 21 MG/24 HOURS TOPICAL PATCH TD SCH (10:08)
[2016-08-09] MEDS: BUDESONIDE/FORMETEROL FUMARATE 80/4.5 mcg INHALER IH SCH ×2 (10:08→22:10)
[2016-08-09] MEDS: PANTOPRAZOLE 40 MG TABLET (FP) PO SCH (10:09)
[2016-08-09] MEDS: PRENATAL VITAMINS W/ FOLIC ACID TABLET (FP) PO SCH (10:09)
[2016-08-09] MEDS: MESALAMINE 800 MG TABLET.DR PO SCH ×4 (10:12→22:09)
[2016-08-09] MEDS: hydrOXYzine PAMOATE 50 MG CAPSULE (FP) PO PRN ×2 (12:56→17:20)
--- NOTE | 2016-08-09 15:46 | PN ---
S CIWA - CIWA Score Nausea/Vomitin Muscle Tremors: 4-Moderate,w/Arms Extend Anxiety: 4-Mod. Anxious/Guarded Agitation: 2 Paroxysmal Sweats: No Perspiration Orientation: 0-Oriented Tacttile Disturbances: 0-None Auditory Disturbances: 0-None Visual Disturbances: 0-None Headache: 2-Mild CIWA-Ar Total Score: 15 BHS Progress Note (SOAP) Subjective: Anxious, sweating, nausea, tremor; c/o itchy mole/lesion near left ear requesting anti-itch cream (patient stated he has appt to remove it soon) Objective: 08/09/16 15:44 Last Vital Signs Temp Pulse Resp BP Pulse Ox 97.2 F L 83 18 116/80 08/09/16 13:34 08/09/16 13:34 08/09/16 13:34 08/09/16 13:34 Laboratory Tests 08/07/16 08/07/16 08/07/16 13:00 13:00 15:00 WBC RBC Hgb Hct MCV MCHC RDW Plt Count MPV Sodium Potassium Chloride Carbon Dioxide Anion Gap BUN Creatinine Creat Clearance w eGFR Random Glucose Calcium Total Bilirubin AST ALT Alkaline Phosphatase Total Protein Albumin Urine Color Ltyellow Urine Appearance Clear Urine pH 6.0 Ur Specific [place] 1.011 Urine Protein Negative Urine Glucose (UA) Negative Urine Ketones Negative Urine Blood Negative Urine Nitrite Negative Urine Bilirubin Negative Urine Urobilinogen Negative Ur Leukocyte Esterase Negative RPR Titer Hepatitis C Antibody <0.1 HIV 1&2 Antibody Screen Negative HIV P24 Antigen Negative 08/08/16 08/08/16 08/08/16 06:20 06:20 06:20 WBC 7.9 RBC 4.09 Hgb 14.0 Hct 41.9 MCV 102.3 H MCHC 33.5 RDW 14.2 Plt Count 225 MPV 9.6 Sodium 143 Potassium 4.1 Chloride 106 Carbon Dioxide 25 Anion Gap 12 BUN 12 Creatinine 0.9 Creat Clearance w eGFR > 60 Random Glucose 111 H D Calcium 8.5 Total Bilirubin 0.2 D AST 59 H D ALT 99 H D Alkaline Phosphatase 92 D Total Protein 7.0 Albumin 4.0 Urine Color Urine Appearance Urine pH Ur Specific [place] Urine Protein Urine Glucose (UA) Urine Ketones Urine Blood Urine Nitrite Urine Bilirubin Urine Urobilinogen Ur Leukocyte Esterase RPR Titer Nonreactive Hepatitis C Antibody HIV 1&2 Antibody Screen HIV P24 Antigen Labs noted Assessment: 08/09/16 15:44 Withdrawal symptoms c/o itchy mole/lesion near left ear, chronic Plan: Continue detox Itchy mole/lesion near left ear: hydrocortisone cream 1% bid
[2016-08-09] MEDS: chlordiazePOXIDE 5 MG CAPSULE PO SCH ×2 (17:19→22:09)
[2016-08-09] MEDS: THIAMINE HCL 100 MG TABLET (FP) PO SCH (22:09)
[2016-08-09] MEDS: HYDROCORTISONE 1% TOPICAL CREAM 30 GM TUBE TP SCH (22:09)
[2016-08-10] MEDS: chlordiazePOXIDE HCL 25 MG CAPSULE PO PRN (01:05)
[2016-08-10] MEDS: diphenhydrAMINE HCL 50 MG CAPSULE PO PRN (01:05)
[2016-08-10] MEDS: chlordiazePOXIDE 5 MG CAPSULE PO SCH ×2 (05:25→10:07)
[2016-08-10] MEDS: LIPASE/PROTEASE/AMYLASE 6,000 UNIT CAPSULE PO SCH ×3 (07:40→17:05)
[2016-08-10] MEDS: PRENATAL VITAMINS W/ FOLIC ACID TABLET (FP) PO SCH (10:06)
[2016-08-10] MEDS: PANTOPRAZOLE 40 MG TABLET (FP) PO SCH (10:06)
[2016-08-10] MEDS: HYDROCORTISONE 1% TOPICAL CREAM 30 GM TUBE TP SCH ×2 (10:07→22:16)
[2016-08-10] MEDS: MESALAMINE 800 MG TABLET.DR PO SCH ×4 (10:07→22:14)
[2016-08-10] MEDS: BUDESONIDE/FORMETEROL FUMARATE 80/4.5 mcg INHALER IH SCH ×2 (10:08→22:14)
[2016-08-10] MEDS: NICOTINE 21 MG/24 HOURS TOPICAL PATCH TD SCH (10:08)
--- NOTE | 2016-08-10 12:14 | PN ---
BHS Progress Note (SOAP) Subjective: Sweating,interrupted sleep,restless Objective: 08/10/16 12:12 Vital Signs - 8 hr 08/10/16 08/10/16 06:10 09:51 Temperature 97.3 F L 96.1 F L Pulse Rate 79 83 Respiratory 18 18 Rate Blood Pressure 115/80 112/79 Laboratory Last Values WBC 7.9 K/mm3 (4.0-10.0) 08/08/16 06:20 RBC 4.09 M/mm3 (4.00-5.60) 08/08/16 06:20 Hgb 14.0 GM/dL (11.7-16.9) 08/08/16 06:20 Hct 41.9 % (35.4-49) 08/08/16 06:20 MCV 102.3 fl (80-96) H 08/08/16 06:20 MCHC 33.5 g/dl (32.0-35.9) 08/08/16 06:20 RDW 14.2 % (11.9-15.9) 08/08/16 06:20 Plt Count 225 K/MM3 (134-434) 08/08/16 06:20 MPV 9.6 fl (7.5-11.1) 08/08/16 06:20 Sodium 143 mmol/L (136-145) 08/08/16 06:20 Potassium 4.1 mmol/L (3.5-5.1) 08/08/16 06:20 Chloride 106 mmol/L (98-107) 08/08/16 06:20 Carbon Dioxide 25 mmol/L (21-32) 08/08/16 06:20 Anion Gap 12 (8-16) 08/08/16 06:20 BUN 12 mg/dL (7-18) 08/08/16 06:20 Creatinine 0.9 mg/dL (0.7-1.3) 08/08/16 06:20 Creat Clearance w eGFR > 60 (>60) 08/08/16 06:20 Random Glucose 111 mg/dL (74-106) H D 08/08/16 06:20 Calcium 8.5 mg/dL (8.5-10.1) 08/08/16 06:20 Total Bilirubin 0.2 mg/dL (0.2-1.0) D 08/08/16 06:20 AST 59 U/L (15-37) H D 08/08/16 06:20 ALT 99 U/L (12-78) H D 08/08/16 06:20 Alkaline Phosphatase 92 U/L (45-117) D 08/08/16 06:20 Total Protein 7.0 g/dl (6.4-8.2) 08/08/16 06:20 Albumin 4.0 g/dl (3.4-5.0) 08/08/16 06:20 Urine Color Ltyellow 08/07/16 15:00 Urine Appearance Clear 08/07/16 15:00 Urine pH 6.0 (5.0-8.0) 08/07/16 15:00 Ur Specific [place] 1.011 (1.001-1.035) 08/07/16 15:00 Urine Protein Negative (NEGATIVE) 08/07/16 15:00 Urine Glucose (UA) Negative (NEGATIVE) 08/07/16 15:00 Urine Ketones Negative (NEGATIVE) 08/07/16 15:00 Urine Blood Negative (NEGATIVE) 08/07/16 15:00 Urine Nitrite Negative (NEGATIVE) 08/07/16 15:00 Urine Bilirubin Negative (NEGATIVE) 08/07/16 15:00 Urine Urobilinogen Negative E.U./dl (0.2-1.0) 08/07/16 15:00 Ur Leukocyte Esterase Negative (NEGATIVE) 08/07/16 15:00 RPR Titer Nonreactive (NONREACTIVE) 08/08/16 06:20 Hepatitis C Antibody <0.1 s/co ratio (0.0-0.9) 08/07/16 13:00 HIV 1&2 Antibody Screen Negative 08/07/16 13:00 HIV P24 Antigen Negative 08/07/16 13:00 labs noted,EKG on admission = sinus tach which has resolved as detox protocol continues. Assessment: 08/10/16 12:13 Withdrawal sx. Plan: Continue detox
[2016-08-10] MEDS: hydrOXYzine PAMOATE 50 MG CAPSULE (FP) PO PRN ×2 (17:06→22:14)
[2016-08-10] MEDS: chlordiazePOXIDE HCL 10 MG CAPSULE PO SCH ×2 (17:06→22:14)
[2016-08-10] MEDS: THIAMINE HCL 100 MG TABLET (FP) PO SCH (22:14)
[2016-08-11] MEDS: chlordiazePOXIDE HCL 10 MG CAPSULE PO SCH (05:32)
[2016-08-11 06:12] VITALS: BP 110/84; PULSE 92; TEMP 97.4
[2016-08-11] MEDS: LIPASE/PROTEASE/AMYLASE 6,000 UNIT CAPSULE PO SCH (07:31)
[2016-08-11] MEDS: PRENATAL VITAMINS W/ FOLIC ACID TABLET (FP) PO SCH (09:04)
[2016-08-11] MEDS: BUDESONIDE/FORMETEROL FUMARATE 80/4.5 mcg INHALER IH SCH (09:04)
[2016-08-11] MEDS: MESALAMINE 800 MG TABLET.DR PO SCH (09:05)
--- NOTE | 2016-08-11 09:12 | DS ---
[facility] Detox Discharge Summary Admission Date: 08/07/16 Discharge Date: 08/11/16 - History Present History: Alcohol Dependence Additional Comments: DETOX COMPLETED. ALERT O X 3. NAD. INSTRUCTED TO FOLLOW UP WITH PMD DR KELVIN WRIGHT AT [address] [place] [address] FOR MEDICAL MANAGEMENT OF COMORBID CONDITION. Pertinent Past History: ALCOHOL RELATED SEIZURES COPD NODULE APEX OF RIGHT LUNG GERD ULCERATIVE COLITIS ALCOHOLIC PANCREATITIS - Physical Exam Results Vital Signs: Vital Signs Temperature 97.4 F L 08/11/16 06:12 Pulse Rate 92 H 08/11/16 06:12 Respiratory Rate 16 08/11/16 06:12 Blood Pressure 110/84 08/11/16 06:12 O2 Sat by Pulse Oximetry (%) Pertinent Admission Physical Exam Findings: WITHDRAWAL SX - Treatment Hospital Course: Detox Protocol Followed, Detoxed Safely, Responded well, Discharged Condition Good - Medication Discharge Medications: Ambulatory Orders Albuterol Sulfate Inhaler - [Ventolin HFA Inhaler -] 2 puff IH Q4H PRN 08/07/16 Budesonide/Formeterol Fumarate [SYMBICORT 80/4.5mcg -] 1 puff IH BID 08/07/16 Buspirone HCl [Buspar -] 15 mg PO BID 08/07/16 Buspirone HCl [Buspar -] 15 mg PO BID #60 tablet 08/07/16 Lipase/Protease/Amylase [Eunice Azevedo 6,000 Units Capsule] 2 cap PO TIDCM 08/07/16 Mesalamine 800 mg PO QID 08/07/16 Pantoprazole Sodium [Protonix -] 40 mg PO DAILY 08/07/16 - Diagnosis (1) Alcohol dependence with uncomplicated withdrawal Current Visit: Yes Status: Acute (2) Alcohol related seizure Current Visit: Yes Status: Suspected (3) Nicotine dependence Current Visit: Yes Status: Acute Qualifiers: Nicotine product type: cigarettes Substance use status: in withdrawal Qualified Code(s): F17.213 - Nicotine dependence, cigarettes, with withdrawal (4) COPD (chronic obstructive pulmonary disease) Current Visit: Yes Status: Chronic Qualifiers: COPD type: chronic bronchitis Chronic bronchitis type: simple Qualified Code(s): J41.0 - Simple chronic bronchitis (5) Chronic GERD Current Visit: Yes Status: Chronic (6) Chronic low back pain with right-sided sciatica Current Visit: Yes Status: Chronic Qualifiers: Back pain laterality: right Qualified Code(s): M54.41 - Lumbago with sciatica, right side; G89.29 - Other chronic pain (7) Ulcerative colitis Current Visit: Yes Status: Chronic Qualifiers: Ulcerative colitis location: unspecified ulcerative colitis location Digestive disease complication type: without complication Qualified Code( s): K51.90 - Ulcerative colitis, unspecified, without complications (8) Weight loss Current Visit: Yes Status: Chronic - AMA Did Patient Leave Against Medical Advice: No
== END 2016-08-11 09:10 | disposition home or self-care (01) | DRG 897 ==
LOC: YASAS 10:36 → Y3N 13:37
PROVIDERS: ADMIT Internal Medicine; ATTEND Internal Medicine
PROC: HZ2ZZZZ Detoxification Services for Substance Abuse Treatment (ICD-10-PCS; principal; 2016-08-07)
DX: F10.230 Alcohol dependence with withdrawal, uncomplicated (principal); F33.9 Major depressive disorder, recurrent, unspecified; K51.90 Ulcerative colitis, unspecified, without complications; F17.210 Nicotine dependence, cigarettes, uncomplicated; J45.909 Unspecified asthma, uncomplicated; J41.0 Simple chronic bronchitis; K21.9 Gastro-esophageal reflux disease without esophagitis; M54.41 Lumbago with sciatica, right side; G89.29 Other chronic pain; Z86.69 Personal history of other diseases of the nervous system and sense organs; Z87.898 Personal history of other specified conditions; D22.20 Melanocytic nevi of unspecified ear and external auricular canal; L29.9 Pruritus, unspecified; Z87.19 Personal history of other diseases of the digestive system; R91.1 Solitary pulmonary nodule
CPT/HCPCS: 36415; 80053; 81003; 85027; 86593; 87389; 93005; 93010

== ENCOUNTER 2016-10-29 08:18 | Inpatient (IN) | payer BC, OTHER ==
--- NOTE | 2016-10-29 12:31 | HP ---
CIWA Score - CIWA Score Nausea/Vomitin-Mild Nausea/No Vomiting Muscle Tremors: 4-Moderate,w/Arms Extend Anxiety: 3 Agitation: 4-Moderately Restless Paroxysmal Sweats: 3 Orientation: 0-Oriented Tacttile Disturbances: 0-None Auditory Disturbances: 0-None Visual Disturbances: 0-None Headache: 1-Very Mild CIWA-Ar Total Score: 16 Admission ROS S - HPI Chief Complaint: I am here to detox. Allergies/Adverse Reactions: Allergies Allergy/AdvReac Type Severity Reaction Status Date / Time strawberry Allergy Severe Verified 10/29/16 10:42 peanut Allergy Mild Hives Verified 04/18/16 11:57 shellfish derived Allergy Mild Hives Verified 04/18/16 11:57 oxycodone HCl [From Percocet] AdvReac Severe Verified 04/18/16 11:57 EGG WHITE Allergy Mild Hives Uncoded 04/18/16 11:57 History of Present Illness: pt is a 56yr old male with a history of alcohol dependence seeking detox for treatment. Exam Limitations: No Limitations - Ebola screening Have you traveled outside of the country in the last 21 days: No Have you had contact with anyone from an Ebola affected area: No Have you been sick,other than usual withdrawal symptoms: No Do you have a fever: No - Review of Systems Constitutional: Chills, Diaphoresis, Loss of Appetite, Night Sweats, Changes in sleep EENT: reports: No Symptoms Reported, Nose Congestion Respiratory: reports: No Symptoms reported Cardiac: reports: Syncope GI: reports: Diarrhea, Nausea, Poor Appetite, Poor Fluid Intake, Vomiting, Indigestion : reports: No Symptoms Reported Musculoskeletal: reports: No Symptoms Reported Integumentary: reports: Flushing, Sweating Neuro: reports: Headache, Tingling, Tremors Endocrine: reports: Excessive Sweating, Flushing, Intolerance to Cold, Intolerance to Heat Hematology: reports: No Symptoms Reported Psychiatric: reports: Judgement Intact, Mood/Affect Appropiate, Orientated x3, Agitated, Anxious Other Systems: Reviewed and Negative Patient History - Patient Medical History Hx Anemia: No Hx Asthma: Yes Hx Chronic Obstructive Pulmonary Disease (COPD): Yes Hx Cancer: No Hx Cardiac Disorders: No Hx Congestive Heart Failure: No Hx Hypertension: No Hx Hypercholesterolemia: No Hx Pacemaker: No HX Cerebrovascular Accident: No Hx Seizures: Yes (etoh seizures last was in 2016) Hx Dementia: No Hx Diabetes: No Hx Gastrointestinal Disorders: Yes (ulcerative colitis/ gastritis) Hx Liver Disease: No Hx Genitourinary Disorders: No Hx Sexually Transmitted Disorders: No Hx Renal Disease (ESRD): No Hx Thyroid Disease: No Hx Human Immunodeficiency Virus (HIV): No (negative) Hx Hepatitis C: No (negative) Hx Depression: Yes Hx Suicide Attempt: No (denies) Hx Bipolar Disorder: No Hx Schizophrenia: No Other Medical History: anxiety - Patient Surgical History Past Surgical History: Yes Hx Neurologic Surgery: No Hx Cataract Extraction: No Hx Cardiac Surgery: No Hx Lung Surgery: Yes (lung biopsy jun 2015 at , chest tube) Hx Breast Surgery: No Hx Breast Biopsy: No Hx Abdominal Surgery: Yes (LEFT INGUINAL HERNIA REPAIR AT AGE OF 4 YEARS) Hx Appendectomy: No Hx Cholecystectomy: No Hx Genitourinary Surgery: No Hx Section: No Hx Orthopedic Surgery: No Other Surgical History: Hernia repair at 4yrs old Anesthesia Reaction: No - PPD History Previous Implant?: Yes Documented Results: Negative w/o proof Implanted On Prior [facility] Admission?: Yes Date: 09/12/15 Results: 0 mm PPD to be Administered?: No - Reproductive History Patient is a Female of Child Bearing Age (11 -55 yrs old): No - Smoking Cessation Smoking history: Current every day smoker Have you smoked in the past 12 months: Yes Aproximately how many cigarettes per day: 30 Cigars Per Day: 0 Hx Chewing Tobacco Use: No Initiated information on smoking cessation: Yes 'Breaking Loose' booklet given: 10/29/16 - Substance & Tx. History Hx Alcohol Use: Yes Substance Use Type: Alcohol Hx Substance Use Treatment: Yes - Substances Abused Alcohol Route: Oral Frequency: Daily Amount used: 3-4 pints Age of first use: 17 Date of Last Use: 10/29/16 Family Disease History - Family Disease History Family Disease History: Other: Father (etoh , renal, ), Mother (etoh, sclerodoerma, ), Brother (schizophrenia) Admission Physical Exam BHS - Vital Signs Vital Signs: Vital Signs - 24 hr 10/29/16 10:22 Temperature 96 F L Pulse Rate 106 H Respiratory 20 Rate Blood Pressure 130/89 - Physical General Appearance: Yes: Appropriately Dressed, Moderate Distress, Thin, Tremorous, Irritable, Sweating, Anxious HEENTM: Yes: Hearing grossly Normal, Normal Voice Respiratory: Yes: Lungs Clear, Normal Breath Sounds, No Respiratory Distress Neck: Yes: No masses,lesions,Nodules Breast: Yes: Within Normal Limits Cardiology: Yes: Regular Rhythm, Regular Rate, S1, S2, Tachycardia Abdominal: Yes: Normal Bowel Sounds, Non Tender, Soft Genitourinary: Yes: Within Normal Limits Back: Yes: Normal Inspection Musculoskeletal: Yes: full range of Motion Extremities: Yes: Normal Capillary Refill, Normal Inspection, Tremors Neurological: Yes: Fully Oriented, Alert, Normal Response Integumentary: Yes: Diaphoresis Lymphatic: Yes: Within Normal Limits - Diagnostic (1) Alcohol dependence with uncomplicated withdrawal Current Visit: Yes Status: Chronic (2) COPD (chronic obstructive pulmonary disease) Current Visit: Yes Status: Chronic Qualifiers: COPD type: chronic bronchitis Chronic bronchitis type: simple Qualified Code(s): J41.0 - Simple chronic bronchitis (3) Chronic GERD Current Visit: Yes Status: Chronic (4) Nicotine dependence Current Visit: Yes Status: Chronic Qualifiers: Nicotine product type: cigarettes Substance use status: uncomplicated Qualified Code(s): F17.210 - Nicotine dependence, cigarettes, uncomplicated (5) Ulcerative colitis Current Visit: Yes Status: Chronic Qualifiers: Ulcerative colitis location: unspecified ulcerative colitis location Digestive disease complication type: without complication Qualified Code( s): K51.90 - Ulcerative colitis, unspecified, without complications (6) Weight loss Current Visit: Yes Status: Chronic Cleared for Admission [facility] - Detox or Rehab [facility] Level of Care: Medically Managed Detox Regimen/Protocol: Librium [facility] Breath Alcohol Content Breath Alcohol Content: 0 Urine Drug Screen - Results Drug Screen Negative: No Urine Drug Screen Results: BZO-Benzodiazepines
[2016-10-29] MEDS ORDERED: MAGNESIUM CITRATE 300 ML BOTTLE PO PRN (12:33)
[2016-10-29] MEDS ORDERED: IBUPROFEN 400 MG TABLET (FP) PO PRN (12:33)
[2016-10-29] MEDS ORDERED: NICOTINE POLACRILEX 4 MG GUM BUC PRN (12:33)
[2016-10-29] MEDS ORDERED: P-EPHED 60MG/TRIPROLIDI 2.5MG TABLET PO PRN (12:33)
[2016-10-29] MEDS ORDERED: ACETAMINOPHEN 325 MG TABLET (FP) PO PRN (12:33)
[2016-10-29] MEDS ORDERED: MAG HYDROX/AL HYDROX/SIMETH 30 ML UNIT-DOSE CUP PO PRN (12:33)
[2016-10-29] MEDS ORDERED: LOPERAMIDE HCL 2 MG CAPSULE PO PRN (12:33)
[2016-10-29] MEDS ORDERED: MENTHOL/PHENOL 1 EACH UD MM PRN (12:33)
[2016-10-29] MEDS ORDERED: MAGNESIUM HYDROX 2400MG/30ML ORAL SUSPENSION 30 ML CUP PO PRN (12:33)
[2016-10-29] MEDS ORDERED: guaiFENesin/D-METHORPHAN HB 10 ML UNIT-DOSE CUPS PO PRN (12:33)
[2016-10-29] MEDS ORDERED: chlordiazePOXIDE HCL 25 MG CAPSULE PO ONE (12:47)
[2016-10-29] MEDS ORDERED: ALBUTEROL SO4 6.7 GM HFA INHALER IH PRN (13:14)
[2016-10-29] MEDS: MESALAMINE 800 MG TABLET.DR PO SCH ×3 (15:12→22:15)
--- NOTE | 2016-10-29 15:28 | CONSULT ---
[facility] Psychiatric Consult - Data Date of interview: 10/29/16 Admission source: [facility] Identifying data: Readmission to [facility] for this 56 y/o male seeking detox treatment on for alcohol dependence.Patient is a without children,domiciled,unemployed and supported on Disability benefits. Substance Abuse History: - Smoking Cessation. Smoking history: Current every day smoker. Have you smoked in the past 12 months: Yes. Aproximately how many cigarettes per day: 30. Cigars Per Day: 0. Hx Chewing Tobacco Use: No. Initiated information on smoking cessation: Yes. 'Breaking Loose' booklet given : 10/29/16. - Substance & Tx. History. Hx Alcohol Use: Yes. Substance Use Type: Alcohol. Hx Substance Use Treatment: Yes. - Substances Abused. Alcohol. Route: Oral. Frequency: Daily. Amount used: 3-4 pints. Age of first use: 17. Date of Last Use: 10/29/16. Confirmed by patient. Medical History: Bronchial asthma/COPD,GERD,pancreatitis,alcohol-related seizure and ulcerative colitis.Noted history of left inguinal herniorraphy. Psychiatric History: Psychiatric history remains same :no contact with psychiatric OPD care providers.Patient keeps reliance on primary care doctors for medication refills (buspar 15 mg po bid).Diagnosed with MDD/Anxiety Disorder.No previous history of psychiatric hospitalizations.Mr Garcia denies history of suicide attempts. Physical/Sexual Abuse/Trauma History: Patient denies. Additional Comment: Urine Drug Screen Results: BZO-Benzodiazepines.Noted. Mental Status Exam - Mental Status Exam Alert and Oriented to: Time, Place, Person Cognitive Function: Good Patient Appearance: Well Groomed Mood: Withdrawn, Hopeful Affect: Mood Congruent Patient Behavior: Fatigued, Appropriate, Cooperative Speech Pattern: Clear, Appropriate Voice Loudness: Normal Thought Process: Goal Oriented Thought Disorder: Not Present Hallucinations: Denies Suicidal Ideation: Denies Homicidal Ideation: Denies Insight/Judgement: Poor Sleep: Poorly, Difficulty falling asleep Appetite: Good Muscle strength/Tone: Normal Gait/Station: Normal Psychiatric Findings - Problem List ([place] 1, 2,3) (1) Alcohol dependence with uncomplicated withdrawal Current Visit: Yes Status: Acute (2) Nicotine dependence Current Visit: Yes Status: Acute Qualifiers: Nicotine product type: cigarettes Substance use status: uncomplicated Qualified Code(s): F17.210 - Nicotine dependence, cigarettes, uncomplicated (3) Substance induced mood disorder Current Visit: Yes Status: Acute (4) Anxiety disorder Current Visit: Yes Status: Acute (5) COPD (chronic obstructive pulmonary disease) Current Visit: Yes Status: Chronic Qualifiers: COPD type: chronic bronchitis Chronic bronchitis type: simple Qualified Code(s): J41.0 - Simple chronic bronchitis (6) Chronic GERD Current Visit: Yes Status: Chronic (7) Ulcerative colitis Current Visit: Yes Status: Chronic Qualifiers: Ulcerative colitis location: unspecified ulcerative colitis location Digestive disease complication type: without complication Qualified Code( s): K51.90 - Ulcerative colitis, unspecified, without complications (8) Weight loss Current Visit: Yes Status: Chronic (9) Insomnia Current Visit: Yes Status: Acute - Initial Treatment Plan Initial Treatment Plan: Psychoeducation.Detoxification in progress.Medications : buspar 15 mg po bid + ambien 5 mg po hs.Side effects/benefits discussed with the patient.He is in agreement with this careplan.Observation.
--- NOTE | 2016-10-29 15:42 | EKG ---
Test Reason : Blood Pressure : / mmHG Vent. Rate : 098 BPM Atrial Rate : 098 BPM P-R Int : 158 ms QRS Dur : 102 ms QT Int : 338 ms P-R-T Axes : 059 066 034 degrees QTc Int : 431 ms NORMAL SINUS RHYTHM NORMAL ECG WHEN COMPARED WITH ECG OF 07-AUG-2016 14:24, NO SIGNIFICANT CHANGE WAS FOUND Confirmed by LINNEA COY MD ([id number]) on 10/29/2016 3:42:04 PM Referred By: Serafin Pérez Confirmed By:LINNEA COY MD
[2016-10-29] MEDS: chlordiazePOXIDE HCL 25 MG CAPSULE PO SCH ×2 (17:09→22:15)
[2016-10-29] MEDS: NICOTINE 21 MG/24 HOURS TOPICAL PATCH TD SCH (19:05)
[2016-10-29] MEDS: ZOLPIDEM TARTRATE 5 MG TABLET PO PRN (22:15)
[2016-10-29] MEDS: THIAMINE HCL 100 MG TABLET (FP) PO SCH (22:15)
[2016-10-29] MEDS: BUDESONIDE/FORMETEROL FUMARATE 80/4.5 mcg INHALER IH SCH (22:15)
[2016-10-29 23:13] LABS: URINE APPEARANCE CLEAR; URINE BILIRUBIN NEGATIVE (NEGATIVE); URINE BLOOD NEGATIVE (NEGATIVE); URINE COLOR LTYELLOW; URINE GLUCOSE (UA) NEGATIVE (NEGATIVE); URINE KETONE TRACE (NEGATIVE); URINE LEUK ESTERASE NEGATIVE (NEGATIVE); URINE NITRITE NEGATIVE (NEGATIVE); URINE PROTEIN NEGATIVE (NEGATIVE); URINE UROBILINOGEN NEGATIVE E.U./dl (0.2-1.0)
[2016-10-30] MEDS: chlordiazePOXIDE HCL 25 MG CAPSULE PO SCH ×4 (05:06→22:28)
[2016-10-30] MEDS: chlordiazePOXIDE HCL 25 MG CAPSULE PO PRN (09:02)
[2016-10-30] MEDS ORDERED: NICOTINE 21 MG/24 HOURS TOPICAL PATCH TD SCH (10:00)
[2016-10-30] MEDS: BUDESONIDE/FORMETEROL FUMARATE 80/4.5 mcg INHALER IH SCH ×2 (10:13→22:28)
[2016-10-30] MEDS: PRENATAL VITAMINS W/ FOLIC ACID TABLET (FP) PO SCH (10:13)
[2016-10-30] MEDS: PANTOPRAZOLE 40 MG TABLET (FP) PO SCH (10:13)
[2016-10-30] MEDS: MESALAMINE 800 MG TABLET.DR PO SCH ×4 (10:13→22:28)
[2016-10-30] MEDS: NICOTINE 21 MG/24 HOURS TOPICAL PATCH TD SCH (10:14)
[2016-10-30 10:22] LABS: MCH 34.6 pg (25.7-33.7); MCHC 34.3 g/dl (32.0-35.9); MEAN CELL VOLUME 100.9 fl (80-96); MEAN PLT VOLUME 10.4 fl (7.5-11.1); PLATELET COUNT 188 K/MM3 (134-434); RDW 13.4 % (11.9-15.9); WHITE BLOOD COUNT 8.3 K/mm3 (4.0-10.0)
[2016-10-30 10:55] LABS: ALBUMIN 4.3 g/dl (3.4-5.0); ALK PHOS 113 U/L (45-117); ANION GAP 11 (8-16); BILIRUBIN,TOTAL 0.4 mg/dL (0.2-1.0); CO2 26 mmol/L (21-32); COCKROFT - GAULT 71.51; GLUCOSE,RANDOM 107 mg/dL (74-106); SGOT/AST 28 U/L (15-37); SGPT/ALT 38 U/L (12-78); TOT PROT 7.6 g/dl (6.4-8.2)
--- NOTE | 2016-10-30 13:24 | PN ---
S CIWA - CIWA Score Nausea/Vomitin-No Nausea/No Vomiting Muscle Tremors: 5 Anxiety: 4-Mod. Anxious/Guarded Agitation: 4-Moderately Restless Paroxysmal Sweats: 3 Orientation: 0-Oriented Tacttile Disturbances: 0-None Auditory Disturbances: 0-None Visual Disturbances: 0-None Headache: 0-None Present CIWA-Ar Total Score: 16 BHS Progress Note (SOAP) Subjective: Anxiety,tremors,sweating,interrupted sleep,restless. Objective: 10/30/16 13:23 Vital Signs - 8 hr 10/30/16 10/30/16 10/30/16 06:12 09:44 13:04 Temperature 97.8 F 98.4 F 97 F L Pulse Rate 84 88 78 Respiratory 18 18 20 Rate Blood Pressure 117/80 114/82 110/74 Laboratory Tests 10/29/16 10/30/16 10/30/16 23:00 06:00 06:00 WBC 8.3 RBC 4.20 Hgb 14.5 Hct 42.4 MCV 100.9 H MCHC 34.3 RDW 13.4 Plt Count 188 MPV 10.4 Sodium 139 Potassium 4.0 Chloride 102 Carbon Dioxide 26 Anion Gap 11 BUN 26 H D Creatinine 1.0 Creat Clearance w eGFR > 60 Random Glucose 107 H Calcium 9.0 Total Bilirubin 0.4 D AST 28 D ALT 38 D Alkaline Phosphatase 113 D Total Protein 7.6 Albumin 4.3 Urine Color Ltyellow Urine Appearance Clear Urine pH 5.0 Ur Specific [place] 1.020 Urine Protein Negative Urine Glucose (UA) Negative Urine Ketones Trace H Urine Blood Negative Urine Nitrite Negative Urine Bilirubin Negative Urine Urobilinogen Negative Ur Leukocyte Esterase Negative RPR Titer 10/30/16 06:00 WBC RBC Hgb Hct MCV MCHC RDW Plt Count MPV Sodium Potassium Chloride Carbon Dioxide Anion Gap BUN Creatinine Creat Clearance w eGFR Random Glucose Calcium Total Bilirubin AST ALT Alkaline Phosphatase Total Protein Albumin Urine Color Urine Appearance Urine pH Ur Specific [place] Urine Protein Urine Glucose (UA) Urine Ketones Urine Blood Urine Nitrite Urine Bilirubin Urine Urobilinogen Ur Leukocyte Esterase RPR Titer Nonreactive labs noted Assessment: 10/30/16 13:24 Withdrawal sx. Plan: Continue detox
[2016-10-30] MEDS ORDERED: chlordiazePOXIDE HCL 25 MG CAPSULE PO ONE (14:00)
[2016-10-30] MEDS: THIAMINE HCL 100 MG TABLET (FP) PO SCH (22:28)
[2016-10-30] MEDS: ZOLPIDEM TARTRATE 5 MG TABLET PO PRN (22:31)
[2016-10-31] MEDS ORDERED: CYCLOBENZAPRINE HCL 10 MG TABLET (FP) PO ONE (00:26)
[2016-10-31] MEDS: chlordiazePOXIDE HCL 25 MG CAPSULE PO SCH ×2 (06:08→10:16)
[2016-10-31] MEDS: BUDESONIDE/FORMETEROL FUMARATE 80/4.5 mcg INHALER IH SCH ×2 (10:15→22:16)
[2016-10-31] MEDS: MESALAMINE 800 MG TABLET.DR PO SCH ×4 (10:15→22:16)
[2016-10-31] MEDS: PANTOPRAZOLE 40 MG TABLET (FP) PO SCH (10:16)
[2016-10-31] MEDS: PRENATAL VITAMINS W/ FOLIC ACID TABLET (FP) PO SCH (10:16)
[2016-10-31] MEDS: NICOTINE 21 MG/24 HOURS TOPICAL PATCH TD SCH (10:16)
[2016-10-31] MEDS: hydrOXYzine PAMOATE 50 MG CAPSULE (FP) PO PRN (15:28)
--- NOTE | 2016-10-31 15:46 | PN ---
S CIWA - CIWA Score Nausea/Vomitin Muscle Tremors: 4-Moderate,w/Arms Extend Anxiety: 4-Mod. Anxious/Guarded Agitation: 3 Paroxysmal Sweats: 3 Orientation: 0-Oriented Tacttile Disturbances: 0-None Auditory Disturbances: 0-None Visual Disturbances: 3-Moderate Sensitivity Headache: 0-None Present CIWA-Ar Total Score: 19 BHS Progress Note (SOAP) Subjective: Tremors, Sweating, Diarrhea. Objective: PT. A & O X 3, OBSERVED AMBULATING ON UNIT. 10/31/16 15:44 Vital Signs Temperature 97.1 F L 10/31/16 13:05 Pulse Rate 68 10/31/16 13:05 Respiratory Rate 18 10/31/16 13:05 Blood Pressure 126/86 10/31/16 13:05 O2 Sat by Pulse Oximetry (%) Laboratory Last Values WBC 8.3 K/mm3 (4.0-10.0) 10/30/16 06:00 RBC 4.20 M/mm3 (4.00-5.60) 10/30/16 06:00 Hgb 14.5 GM/dL (11.7-16.9) 10/30/16 06:00 Hct 42.4 % (35.4-49) 10/30/16 06:00 MCV 100.9 fl (80-96) H 10/30/16 06:00 MCHC 34.3 g/dl (32.0-35.9) 10/30/16 06:00 RDW 13.4 % (11.9-15.9) 10/30/16 06:00 Plt Count 188 K/MM3 (134-434) 10/30/16 06:00 MPV 10.4 fl (7.5-11.1) 10/30/16 06:00 Sodium 139 mmol/L (136-145) 10/30/16 06:00 Potassium 4.0 mmol/L (3.5-5.1) 10/30/16 06:00 Chloride 102 mmol/L (98-107) 10/30/16 06:00 Carbon Dioxide 26 mmol/L (21-32) 10/30/16 06:00 Anion Gap 11 (8-16) 10/30/16 06:00 BUN 26 mg/dL (7-18) H D 10/30/16 06:00 Creatinine 1.0 mg/dL (0.7-1.3) 10/30/16 06:00 Creat Clearance w eGFR > 60 (>60) 10/30/16 06:00 Random Glucose 107 mg/dL (74-106) H 10/30/16 06:00 Calcium 9.0 mg/dL (8.5-10.1) 10/30/16 06:00 Total Bilirubin 0.4 mg/dL (0.2-1.0) D 10/30/16 06:00 AST 28 U/L (15-37) D 10/30/16 06:00 ALT 38 U/L (12-78) D 10/30/16 06:00 Alkaline Phosphatase 113 U/L (45-117) D 10/30/16 06:00 Total Protein 7.6 g/dl (6.4-8.2) 10/30/16 06:00 Albumin 4.3 g/dl (3.4-5.0) 10/30/16 06:00 Urine Color Ltyellow 10/29/16 23:00 Urine Appearance Clear 10/29/16 23:00 Urine pH 5.0 (5.0-8.0) 10/29/16 23:00 Ur Specific [place] 1.020 (1.005-1.025) 10/29/16 23:00 Urine Protein Negative (NEGATIVE) 10/29/16 23:00 Urine Glucose (UA) Negative (NEGATIVE) 10/29/16 23:00 Urine Ketones Trace (NEGATIVE) H 10/29/16 23:00 Urine Blood Negative (NEGATIVE) 10/29/16 23:00 Urine Nitrite Negative (NEGATIVE) 10/29/16 23:00 Urine Bilirubin Negative (NEGATIVE) 10/29/16 23:00 Urine Urobilinogen Negative E.U./dl (0.2-1.0) 10/29/16 23:00 Ur Leukocyte Esterase Negative (NEGATIVE) 10/29/16 23:00 RPR Titer Nonreactive (NONREACTIVE) 10/30/16 06:00 LABS NOTED. Assessment: 10/31/16 15:45 WITHDRAWAL SYMPTOMS. Plan: CONTINUE DETOX. INCREASE PO FLUID INTAKE.
[2016-10-31] MEDS: chlordiazePOXIDE 5 MG CAPSULE PO SCH ×2 (17:22→22:15)
[2016-10-31] MEDS: ZOLPIDEM TARTRATE 5 MG TABLET PO PRN (22:15)
[2016-10-31] MEDS: THIAMINE HCL 100 MG TABLET (FP) PO SCH (22:15)
[2016-10-31] MEDS: diphenhydrAMINE HCL 50 MG CAPSULE PO PRN (23:48)
[2016-11-01] MEDS: chlordiazePOXIDE HCL 25 MG CAPSULE PO PRN (01:11)
[2016-11-01] MEDS: diphenhydrAMINE HCL 50 MG CAPSULE PO PRN (01:11)
[2016-11-01] MEDS: chlordiazePOXIDE 5 MG CAPSULE PO SCH ×2 (05:23→10:10)
[2016-11-01] MEDS: PANTOPRAZOLE 40 MG TABLET (FP) PO SCH (10:10)
[2016-11-01] MEDS: MESALAMINE 800 MG TABLET.DR PO SCH ×4 (10:10→22:10)
[2016-11-01] MEDS: NICOTINE 21 MG/24 HOURS TOPICAL PATCH TD SCH (10:10)
[2016-11-01] MEDS: BUDESONIDE/FORMETEROL FUMARATE 80/4.5 mcg INHALER IH SCH ×2 (10:10→22:09)
[2016-11-01] MEDS: PRENATAL VITAMINS W/ FOLIC ACID TABLET (FP) PO SCH (10:10)
--- NOTE | 2016-11-01 15:01 | PN ---
BHS Progress Note (SOAP) Subjective: Tremor, sweating, interrupted sleep, anxious Objective: 11/01/16 14:58 Last Vital Signs Temp Pulse Resp BP Pulse Ox 98.1 F 84 18 115/75 11/01/16 13:13 11/01/16 13:13 11/01/16 13:13 11/01/16 13:13 Laboratory Tests 10/29/16 10/30/16 10/30/16 23:00 06:00 06:00 WBC 8.3 RBC 4.20 Hgb 14.5 Hct 42.4 MCV 100.9 H MCHC 34.3 RDW 13.4 Plt Count 188 MPV 10.4 Sodium 139 Potassium 4.0 Chloride 102 Carbon Dioxide 26 Anion Gap 11 BUN 26 H D Creatinine 1.0 Creat Clearance w eGFR > 60 Random Glucose 107 H Calcium 9.0 Total Bilirubin 0.4 D AST 28 D ALT 38 D Alkaline Phosphatase 113 D Total Protein 7.6 Albumin 4.3 Urine Color Ltyellow Urine Appearance Clear Urine pH 5.0 Ur Specific [place] 1.020 Urine Protein Negative Urine Glucose (UA) Negative Urine Ketones Trace H Urine Blood Negative Urine Nitrite Negative Urine Bilirubin Negative Urine Urobilinogen Negative Ur Leukocyte Esterase Negative RPR Titer 10/30/16 06:00 WBC RBC Hgb Hct MCV MCHC RDW Plt Count MPV Sodium Potassium Chloride Carbon Dioxide Anion Gap BUN Creatinine Creat Clearance w eGFR Random Glucose Calcium Total Bilirubin AST ALT Alkaline Phosphatase Total Protein Albumin Urine Color Urine Appearance Urine pH Ur Specific [place] Urine Protein Urine Glucose (UA) Urine Ketones Urine Blood Urine Nitrite Urine Bilirubin Urine Urobilinogen Ur Leukocyte Esterase RPR Titer Nonreactive Labs noted: BUN 26 Assessment: 11/01/16 15:00 Withdrawal symptoms Noted with azotemia Plan: Continue detox Azotemia: encouraged to drink lots of water
[2016-11-01] MEDS: hydrOXYzine PAMOATE 50 MG CAPSULE (FP) PO PRN ×2 (15:44→22:10)
[2016-11-01] MEDS: chlordiazePOXIDE HCL 10 MG CAPSULE PO SCH ×2 (17:05→22:10)
[2016-11-01] MEDS: THIAMINE HCL 100 MG TABLET (FP) PO SCH (22:10)
[2016-11-02] MEDS: diphenhydrAMINE HCL 50 MG CAPSULE PO PRN (00:20)
[2016-11-02] MEDS: chlordiazePOXIDE HCL 10 MG CAPSULE PO SCH (05:31)
[2016-11-02 06:13] VITALS: BP 120/81; PULSE 69; TEMP 97
--- NOTE | 2016-11-02 11:18 | DS ---
[facility] Detox Discharge Summary Admission Date: 10/29/16 Discharge Date: 11/02/16 - History Present History: Alcohol Dependence Pertinent Past History: COPD GERD Ulcerative Colitis - Physical Exam Results Vital Signs: Vital Signs Temperature 97 F L 11/02/16 06:13 Pulse Rate 69 11/02/16 06:13 Respiratory Rate 18 11/02/16 06:13 Blood Pressure 120/81 11/02/16 06:13 O2 Sat by Pulse Oximetry (%) Pertinent Admission Physical Exam Findings: Withdrawal sx. Laboratory Last Values WBC 8.3 K/mm3 (4.0-10.0) 10/30/16 06:00 RBC 4.20 M/mm3 (4.00-5.60) 10/30/16 06:00 Hgb 14.5 GM/dL (11.7-16.9) 10/30/16 06:00 Hct 42.4 % (35.4-49) 10/30/16 06:00 MCV 100.9 fl (80-96) H 10/30/16 06:00 MCHC 34.3 g/dl (32.0-35.9) 10/30/16 06:00 RDW 13.4 % (11.9-15.9) 10/30/16 06:00 Plt Count 188 K/MM3 (134-434) 10/30/16 06:00 MPV 10.4 fl (7.5-11.1) 10/30/16 06:00 Sodium 139 mmol/L (136-145) 10/30/16 06:00 Potassium 4.0 mmol/L (3.5-5.1) 10/30/16 06:00 Chloride 102 mmol/L (98-107) 10/30/16 06:00 Carbon Dioxide 26 mmol/L (21-32) 10/30/16 06:00 Anion Gap 11 (8-16) 10/30/16 06:00 BUN 26 mg/dL (7-18) H D 10/30/16 06:00 Creatinine 1.0 mg/dL (0.7-1.3) 10/30/16 06:00 Creat Clearance w eGFR > 60 (>60) 10/30/16 06:00 Random Glucose 107 mg/dL (74-106) H 10/30/16 06:00 Calcium 9.0 mg/dL (8.5-10.1) 10/30/16 06:00 Total Bilirubin 0.4 mg/dL (0.2-1.0) D 10/30/16 06:00 AST 28 U/L (15-37) D 10/30/16 06:00 ALT 38 U/L (12-78) D 10/30/16 06:00 Alkaline Phosphatase 113 U/L (45-117) D 10/30/16 06:00 Total Protein 7.6 g/dl (6.4-8.2) 10/30/16 06:00 Albumin 4.3 g/dl (3.4-5.0) 10/30/16 06:00 Urine Color Ltyellow 10/29/16 23:00 Urine Appearance Clear 10/29/16 23:00 Urine pH 5.0 (5.0-8.0) 10/29/16 23:00 Ur Specific [place] 1.020 (1.005-1.025) 10/29/16 23:00 Urine Protein Negative (NEGATIVE) 10/29/16 23:00 Urine Glucose (UA) Negative (NEGATIVE) 10/29/16 23:00 Urine Ketones Trace (NEGATIVE) H 10/29/16 23:00 Urine Blood Negative (NEGATIVE) 10/29/16 23:00 Urine Nitrite Negative (NEGATIVE) 10/29/16 23:00 Urine Bilirubin Negative (NEGATIVE) 10/29/16 23:00 Urine Urobilinogen Negative E.U./dl (0.2-1.0) 10/29/16 23:00 Ur Leukocyte Esterase Negative (NEGATIVE) 10/29/16 23:00 RPR Titer Nonreactive (NONREACTIVE) 10/30/16 06:00 labs noted - Treatment Hospital Course: Detox Protocol Followed, Detoxed Safely, Responded well, Discharged Condition Good, Rehab Referral Accepted Patient has Accepted a Rehab Referral to: [facility] for 12 step meetings - Medication Discharge Medications: Ambulatory Orders Albuterol Sulfate Inhaler - [Ventolin HFA Inhaler -] 2 puff IH Q4H PRN 08/07/16 Budesonide/Formeterol Fumarate [SYMBICORT 80/4.5mcg -] 1 puff IH BID 08/07/16 Buspirone HCl [Buspar -] 15 mg PO BID #60 tablet 08/07/16 Mesalamine 800 mg PO QID 08/07/16 Pantoprazole Sodium [Protonix -] 40 mg PO DAILY 08/07/16 Buspirone HCl [Buspar -] 15 mg PO BID #60 tablet 10/29/16 - Diagnosis (1) Alcohol dependence with uncomplicated withdrawal Status: Acute (2) Insomnia Status: Acute (3) Nicotine dependence Status: Acute Qualifiers: Nicotine product type: cigarettes Substance use status: uncomplicated Qualified Code(s): F17.210 - Nicotine dependence, cigarettes, uncomplicated (4) Substance induced mood disorder Status: Acute (5) COPD (chronic obstructive pulmonary disease) Status: Chronic Qualifiers: COPD type: chronic bronchitis Chronic bronchitis type: simple Qualified Code(s): J41.0 - Simple chronic bronchitis (6) Chronic GERD Status: Chronic (7) Ulcerative colitis Status: Chronic Qualifiers: Ulcerative colitis location: unspecified ulcerative colitis location Digestive disease complication type: without complication Qualified Code( s): K51.90 - Ulcerative colitis, unspecified, without complications - AMA Did Patient Leave Against Medical Advice: No
== END 2016-11-02 06:35 | disposition home or self-care (01) | DRG 897 ==
LOC: YASAS 08:18 → Y3N 11:59
PROVIDERS: ADMIT Internal Medicine; ATTEND Internal Medicine
PROC: HZ2ZZZZ Detoxification Services for Substance Abuse Treatment (ICD-10-PCS; principal; 2016-10-29)
DX: F10.230 Alcohol dependence with withdrawal, uncomplicated (principal); K51.90 Ulcerative colitis, unspecified, without complications; F17.210 Nicotine dependence, cigarettes, uncomplicated; F19.24 Other psychoactive substance dependence with psychoactive substance-induced mood disorder; F41.9 Anxiety disorder, unspecified; J45.909 Unspecified asthma, uncomplicated; J41.0 Simple chronic bronchitis; K21.9 Gastro-esophageal reflux disease without esophagitis; G47.00 Insomnia, unspecified; Z86.69 Personal history of other diseases of the nervous system and sense organs; Z87.898 Personal history of other specified conditions
CPT/HCPCS: 36415; 80053; 81003; 85027; 86593; 93005; 93010

== ENCOUNTER 2017-02-23 09:20 | Inpatient (IN) | payer BC ==
[2017-02-23 09:36] VITALS: BMI 19.8
--- NOTE | 2017-02-23 10:59 | HP ---
CIWA Score - CIWA Score Nausea/Vomitin Muscle Tremors: 4-Moderate,w/Arms Extend Anxiety: 3 Agitation: 4-Moderately Restless Paroxysmal Sweats: 3 Orientation: 0-Oriented Tacttile Disturbances: 0-None Auditory Disturbances: 0-None Visual Disturbances: 0-None Headache: 1-Very Mild CIWA-Ar Total Score: 17 Admission ROS S - HPI Chief Complaint: I am here to detox. Allergies/Adverse Reactions: Allergies Allergy/AdvReac Type Severity Reaction Status Date / Time strawberry Allergy Severe Verified 10/29/16 10:42 peanut Allergy Mild Hives Verified 04/18/16 11:57 shellfish derived Allergy Mild Hives Verified 04/18/16 11:57 oxycodone HCl [From Percocet] AdvReac Severe Verified 04/18/16 11:57 EGG WHITE Allergy Mild Hives Uncoded 04/18/16 11:57 History of Present Illness: pt is a 56yr old history of alcohol dependence seeking detox for treatment. Exam Limitations: No Limitations - Ebola screening Have you traveled outside of the country in the last 21 days: No Have you had contact with anyone from an Ebola affected area: No Have you been sick,other than usual withdrawal symptoms: No Do you have a fever: No - Review of Systems Constitutional: Chills, Diaphoresis, Loss of Appetite, Changes in sleep EENT: reports: No Symptoms Reported Respiratory: reports: No Symptoms reported Cardiac: reports: Syncope GI: reports: Diarrhea, Nausea, Poor Appetite, Poor Fluid Intake, Indigestion : reports: No Symptoms Reported Musculoskeletal: reports: No Symptoms Reported Integumentary: reports: Flushing, Sweating Neuro: reports: Headache, Seizure (last seizure was 6months ago r/t alcohol), Tingling, Tremors Endocrine: reports: Excessive Sweating, Flushing, Intolerance to Cold, Intolerance to Heat Hematology: reports: No Symptoms Reported Psychiatric: reports: Judgement Intact, Orientated x3, Agitated, Anxious Other Systems: Reviewed and Negative Patient History - Patient Medical History Hx Anemia: No Hx Asthma: Yes Hx Chronic Obstructive Pulmonary Disease (COPD): Yes Hx Cancer: No Hx Cardiac Disorders: No Hx Congestive Heart Failure: No Hx Hypertension: No Hx Hypercholesterolemia: No Hx Pacemaker: No HX Cerebrovascular Accident: No Hx Seizures: No Hx Dementia: No Hx Diabetes: No Hx Gastrointestinal Disorders: Yes (ulcerative colitis.) Hx Liver Disease: No Hx Genitourinary Disorders: No Hx Sexually Transmitted Disorders: No Hx Renal Disease (ESRD): No Hx Thyroid Disease: No Hx Human Immunodeficiency Virus (HIV): No (negative) Hx Hepatitis C: No (negative) Hx Depression: Yes Hx Suicide Attempt: No (denies) Hx Bipolar Disorder: Yes Hx Schizophrenia: No Other Medical History: anxiety - Patient Surgical History Past Surgical History: Yes Hx Neurologic Surgery: No Hx Cataract Extraction: No Hx Cardiac Surgery: No Hx Lung Surgery: Yes (lung biopsy jun 2015 at , chest tube R lobectomy in 12/28 ) Hx Breast Surgery: No Hx Breast Biopsy: No Hx Abdominal Surgery: Yes (LEFT INGUINAL HERNIA REPAIR AT AGE OF 4 YEARS) Hx Appendectomy: No Hx Cholecystectomy: No Hx Genitourinary Surgery: No Hx Section: No Hx Orthopedic Surgery: No Other Surgical History: Hernia repair at 4yrs old Anesthesia Reaction: No - PPD History Previous Implant?: Yes Documented Results: Negative w/proof Implanted On Prior [facility] Admission?: Yes Date: 10/31/16 Results: 0 mm PPD to be Administered?: No - Reproductive History Patient is a Female of Child Bearing Age (11 -55 yrs old): No - Smoking Cessation Smoking history: Current every day smoker Have you smoked in the past 12 months: Yes Aproximately how many cigarettes per day: 30 Cigars Per Day: 0 Hx Chewing Tobacco Use: No Initiated information on smoking cessation: Yes 'Breaking Loose' booklet given: 02/23/17 - Substance & Tx. History Hx Alcohol Use: Yes Hx Substance Use: No Substance Use Type: Alcohol Hx Substance Use Treatment: Yes (last detox [facility] 10/2016) - Substances Abused Alcohol Route: Oral Frequency: Daily Amount used: 3 PINTS VODKA Age of first use: 17 Date of Last Use: 02/23/17 Family Disease History - Family Disease History Family Disease History: Other: Father (etoh , renal, ), Mother (etoh, sclerodoerma, ), Brother (schizophrenia) Admission Physical Exam BHS - Vital Signs Vital Signs: Vital Signs - 24 hr 02/23/17 09:34 Temperature 98.1 F Pulse Rate 97 H Respiratory 18 Rate Blood Pressure 99/68 - Physical General Appearance: Yes: Appropriately Dressed, Moderate Distress, Thin, Tremorous, Irritable, Sweating, Anxious HEENTM: Yes: Hearing grossly Normal, Normal Voice, Nasal Congestion Respiratory: Yes: Normal Breath Sounds, No Respiratory Distress, Rhonchi, Wheezing Neck: Yes: No masses,lesions,Nodules Breast: Yes: Within Normal Limits Cardiology: Yes: Regular Rhythm, Regular Rate, S1, S2 Abdominal: Yes: Normal Bowel Sounds, Non Tender, Soft Genitourinary: Yes: Within Normal Limits Back: Yes: Normal Inspection Musculoskeletal: Yes: full range of Motion Extremities: Yes: Normal Capillary Refill, Normal Inspection Neurological: Yes: Fully Oriented, Alert, Normal Response Integumentary: Yes: Normal Color, Diaphoresis Lymphatic: Yes: Within Normal Limits - Diagnostic (1) Alcohol dependence with uncomplicated withdrawal Current Visit: Yes Status: Chronic (2) Nicotine dependence Current Visit: No Status: Acute Qualifiers: Nicotine product type: cigarettes Substance use status: uncomplicated Qualified Code(s): F17.210 - Nicotine dependence, cigarettes, uncomplicated (3) COPD (chronic obstructive pulmonary disease) Current Visit: No Status: Chronic Qualifiers: Emphysema type: unspecified (4) Chronic GERD Current Visit: Yes Status: Chronic (5) Ulcerative colitis Current Visit: Yes Status: Chronic Qualifiers: Ulcerative colitis location: other ulcerative colitis Digestive disease complication type: without complication Qualified Code(s): K51.80 - Other ulcerative colitis without complications (6) History of lobectomy of lung Current Visit: No Status: Chronic Comment: sx done on 10/2016 Cleared for Admission [facility] - Detox or Rehab [facility] Level of Care: Medically Managed Detox Regimen/Protocol: Librium [facility] Breath Alcohol Content Breath Alcohol Content: 0.240 Urine Drug Screen - Results Drug Screen Negative: No Urine Drug Screen Results: BZO-Benzodiazepines
[2017-02-23] MEDS ORDERED: ACETAMINOPHEN 325 MG TABLET (FP) PO PRN (11:12)
[2017-02-23] MEDS ORDERED: MENTHOL/PHENOL 1 EACH UD MM PRN (11:12)
[2017-02-23] MEDS ORDERED: MAGNESIUM HYDROX 2400MG/30ML ORAL SUSPENSION 30 ML CUP PO PRN (11:12)
[2017-02-23] MEDS ORDERED: MAGNESIUM CITRATE 300 ML BOTTLE PO PRN (11:12)
[2017-02-23] MEDS ORDERED: IBUPROFEN 400 MG TABLET (FP) PO PRN (11:12)
[2017-02-23] MEDS ORDERED: LOPERAMIDE HCL 2 MG CAPSULE PO PRN (11:12)
[2017-02-23] MEDS ORDERED: guaiFENesin/D-METHORPHAN HB 10 ML UNIT-DOSE CUPS PO PRN (11:12)
[2017-02-23] MEDS ORDERED: P-EPHED 60MG/TRIPROLIDI 2.5MG TABLET PO PRN (11:12)
[2017-02-23] MEDS ORDERED: NICOTINE POLACRILEX 4 MG GUM BUC PRN (11:12)
[2017-02-23] MEDS ORDERED: MAG HYDROX/AL HYDROX/SIMETH 30 ML UNIT-DOSE CUP PO PRN (11:12)
[2017-02-23] MEDS ORDERED: hydrOXYzine PAMOATE 50 MG CAPSULE (FP) PO PRN (11:12)
[2017-02-23] MEDS ORDERED: ALBUTEROL SO4 6.7 GM HFA INHALER IH PRN (11:14)
[2017-02-23] MEDS ORDERED: ALBUTEROL SO4 2.5/IPRATROPIUM 0.5 INH SOL 3 ML VIAL.NEB. NEB PRN (11:17)
[2017-02-23] MEDS ORDERED: ALBUTEROL SO4 2.5/IPRATROPIUM 0.5 INH SOL 3 ML VIAL.NEB. NEB ONE (11:17)
[2017-02-23] MEDS ORDERED: chlordiazePOXIDE HCL 25 MG CAPSULE PO ONE (11:17)
[2017-02-23] MEDS: BUDESONIDE/FORMETEROL FUMARATE 80/4.5 mcg INHALER IH SCH ×2 (12:19→23:14)
[2017-02-23] MEDS: MESALAMINE 800 MG TABLET.DR PO SCH ×3 (13:33→22:37)
[2017-02-23 15:27] LABS: MCH 34.2 pg (25.7-33.7); MCHC 34.8 g/dl (32.0-35.9); MEAN CELL VOLUME 98.4 fl (80-96); MEAN PLT VOLUME 10.1 fl (7.5-11.1); PLATELET COUNT 189 K/MM3 (134-434); RDW 15.7 % (11.9-15.9); WHITE BLOOD COUNT 6.2 K/mm3 (4.0-10.0)
[2017-02-23 15:32] LABS: ALBUMIN 4.2 g/dl (3.4-5.0); ALK PHOS 95 U/L (45-117); ANION GAP 13 (8-16); BILIRUBIN,TOTAL 0.2 mg/dL (0.2-1.0); CO2 22 mmol/L (21-32); CREATININE 0.9 mg/dL (0.7-1.3); GLUCOSE,RANDOM 80 mg/dL (74-106); SGOT/AST 103 U/L (15-37); SGPT/ALT 107 U/L (12-78); TOT PROT 7.2 g/dl (6.4-8.2)
[2017-02-23 15:50] LABS: HIV 1 & 2 AB NEGATIVE; HIV 1 AGp24 NEGATIVE
--- NOTE | 2017-02-23 16:11 | CONSULT ---
[facility] Psychiatric Consult - Data Date of interview: 02/23/17 Admission source: [facility] Identifying data: Another admission to [facility] for this 56 y/o male seeking detox treatment on for alcohol dependence.Patient is a without children,domiciled,unemployed and supported on [facility] benefits. Substance Abuse History: Discussed with patient.Confirms this report. Smoking Cessation. Smoking history: Current every day smoker. Have you smoked in the past 12 months: Yes. Aproximately how many cigarettes per day: 30. Cigars Per Day: 0. Hx Chewing Tobacco Use: No. Initiated information on smoking cessation : Yes. 'Breaking Loose' booklet given: 02/23/17. - Substance & Tx. History. Hx Alcohol Use: Yes. Hx Substance Use: No. Substance Use Type: Alcohol. Hx Substance Use Treatment: Yes (last detox [facility] 10/2016). - Substances Abused. Alcohol. Route: Oral. Frequency: Daily. Amount used: 3 PINTS VODKA. Age of first use: 17. Date of Last Use: 02/23/17 Medical History: No changes in medical profile : bronchial asthma/COPD,GERD, pancreatitis,alcohol-related seizure and ulcerative colitis.Noted history of left inguinal herniorraphy. Psychiatric History: Patient denies history of psychiatric hospitalizations.No psychiatric OPD care providers.Patient sees primary care doctors for medications refills (buspar 15 mg po bid + paxil 30 mg/day + gabapentin 600 mg po tid) in [facility].Diagnosed with MDD/Anxiety Disorder.Mr Garcia denies history of suicide attempts. Physical/Sexual Abuse/Trauma History: Patient denies history of abuse. Additional Comment: Urine Drug Screen Results: BZO-Benzodiazepines.Noted. Mental Status Exam - Mental Status Exam Alert and Oriented to: Time, Place, Person Cognitive Function: Good Patient Appearance: Well Groomed Mood: Nervous, Withdrawn, Anxious Affect: Mood Congruent Patient Behavior: Fatigued, Appropriate, Cooperative Speech Pattern: Clear Voice Loudness: Normal Thought Process: Goal Oriented Thought Disorder: Not Present Hallucinations: Denies Suicidal Ideation: Denies Homicidal Ideation: Denies Insight/Judgement: Poor Sleep: Poorly, Difficulty falling asleep Appetite: Good Muscle strength/Tone: Normal Gait/Station: Normal Psychiatric Findings - Problem List ([place] 1, 2,3) (1) Alcohol dependence with uncomplicated withdrawal Current Visit: Yes Status: Acute (2) Nicotine dependence Current Visit: Yes Status: Acute Qualifiers: Nicotine product type: cigarettes Substance use status: uncomplicated Qualified Code(s): F17.210 - Nicotine dependence, cigarettes, uncomplicated (3) Substance induced mood disorder Current Visit: Yes Status: Acute (4) Mood disorder Current Visit: Yes Status: Chronic (5) Chronic GERD Current Visit: Yes Status: Chronic (6) Ulcerative colitis Current Visit: Yes Status: Chronic Qualifiers: Ulcerative colitis location: other ulcerative colitis Digestive disease complication type: without complication Qualified Code(s): K51.80 - Other ulcerative colitis without complications (7) COPD (chronic obstructive pulmonary disease) Current Visit: Yes Status: Chronic Qualifiers: Emphysema type: unspecified (8) History of lobectomy of lung Current Visit: Yes Status: Chronic Comment: sx done on 10/2016 (9) Weight loss Current Visit: Yes Status: Chronic (10) Insomnia Current Visit: Yes Status: Acute - Initial Treatment Plan Initial Treatment Plan: Psychoeducation.Detoxification.Medications : paxil 30 mg po daily + buspar 15 mg po bid + gabapentin 600 mg po tid.Side effects/ benefits discussed with patient.Mr Garcia agrees to follow this careplan.Observation.
[2017-02-23] MEDS: chlordiazePOXIDE HCL 25 MG CAPSULE PO SCH ×2 (17:08→22:38)
[2017-02-23 18:14] LABS: URINE APPEARANCE CLEAR; URINE BILIRUBIN NEGATIVE (NEGATIVE); URINE BLOOD NEGATIVE (NEGATIVE); URINE COLOR COLORLESS; URINE GLUCOSE (UA) NEGATIVE (NEGATIVE); URINE KETONE NEGATIVE (NEGATIVE); URINE LEUK ESTERASE NEGATIVE (NEGATIVE); URINE NITRITE NEGATIVE (NEGATIVE); URINE PROTEIN NEGATIVE (NEGATIVE); URINE UROBILINOGEN NEGATIVE mg/dL (0.2-1.0)
[2017-02-23] MEDS: GABAPENTIN 300 MG CAPSULE (FP) PO SCH (22:37)
[2017-02-23] MEDS: RANITIDINE HCL 150 MG TABLET (FP) PO SCH (22:37)
[2017-02-23] MEDS: THIAMINE HCL 100 MG TABLET (FP) PO SCH (22:37)
[2017-02-23] MEDS: diphenhydrAMINE HCL 50 MG CAPSULE PO PRN (22:38)
[2017-02-24] MEDS: chlordiazePOXIDE HCL 25 MG CAPSULE PO SCH ×4 (05:41→22:53)
[2017-02-24] MEDS: GABAPENTIN 300 MG CAPSULE (FP) PO SCH ×3 (05:42→22:26)
--- NOTE | 2017-02-24 10:24 | EKG ---
Test Reason : Blood Pressure : / mmHG Vent. Rate : 086 BPM Atrial Rate : 086 BPM P-R Int : 160 ms QRS Dur : 100 ms QT Int : 364 ms P-R-T Axes : 068 076 041 degrees QTc Int : 435 ms NORMAL SINUS RHYTHM POSSIBLE LEFT ATRIAL ENLARGEMENT BORDERLINE ECG WHEN COMPARED WITH ECG OF 29-OCT-2016 12:21, NO SIGNIFICANT CHANGE WAS FOUND Confirmed by MIKE SIMON, CORNELL ([id number]) on 02/24/2017 10:24:29 AM Referred By: Serafin Pérez Confirmed By:CORNELL MCKEON MD
[2017-02-24] MEDS: PARoxetine HCL 10 MG TABLET (FP) PO SCH (10:26)
[2017-02-24] MEDS: BUDESONIDE/FORMETEROL FUMARATE 80/4.5 mcg INHALER IH SCH ×2 (10:26→22:26)
[2017-02-24] MEDS: NICOTINE 21 MG/24 HOURS TOPICAL PATCH TD SCH (10:27)
[2017-02-24] MEDS: PRENATAL VITAMINS W/ FOLIC ACID TABLET (FP) PO SCH (10:27)
[2017-02-24] MEDS: MESALAMINE 800 MG TABLET.DR PO SCH ×4 (10:27→22:26)
[2017-02-24] MEDS: PANTOPRAZOLE 40 MG TABLET (FP) PO SCH (10:27)
--- NOTE | 2017-02-24 13:38 | PN ---
S CIWA - CIWA Score Nausea/Vomitin Muscle Tremors: 4-Moderate,w/Arms Extend Anxiety: 4-Mod. Anxious/Guarded Agitation: 3 Paroxysmal Sweats: 3 Orientation: 0-Oriented Tacttile Disturbances: 3-Moderate Itch/Numb/Burn Auditory Disturbances: 0-None Visual Disturbances: 1-Very Mild Sensitivity Headache: 0-None Present CIWA-Ar Total Score: 20 BHS Progress Note (SOAP) Subjective: Tremors, Hot / Cold sensations, Sweating, Stomach Cramping. Objective: PT. A & O X 3, OBSERVED AMBULATING ON UNIT. NO ACUTE DISTRESS. PT. DENIES CHEST PAIN. 02/24/17 13:37 Vital Signs Temperature 96.5 F L 02/24/17 09:50 Pulse Rate 70 02/24/17 09:50 Respiratory Rate 18 02/24/17 09:50 Blood Pressure 126/78 02/24/17 09:50 O2 Sat by Pulse Oximetry (%) Laboratory Tests 02/23/17 02/23/17 02/23/17 10:00 10:00 10:00 WBC 6.2 RBC 4.14 Hgb 14.2 Hct 40.8 MCV 98.4 H MCH 34.2 H MCHC 34.8 RDW 15.7 D Plt Count 189 MPV 10.1 Sodium 142 Potassium 4.5 Chloride 107 Carbon Dioxide 22 Anion Gap 13 BUN 10 D Creatinine 0.9 Creat Clearance w eGFR > 60 Random Glucose 80 D Calcium 9.0 Total Bilirubin 0.2 D AST 103 H D ALT 107 H D Alkaline Phosphatase 95 Total Protein 7.2 Albumin 4.2 Urine Color Urine Appearance Urine pH Ur Specific [place] Urine Protein Urine Glucose (UA) Urine Ketones Urine Blood Urine Nitrite Urine Bilirubin Urine Urobilinogen RPR Titer HIV 1&2 Antibody Screen Negative HIV P24 Antigen Negative 02/23/17 02/23/17 10:00 12:35 WBC RBC Hgb Hct MCV MCH MCHC RDW Plt Count MPV Sodium Potassium Chloride Carbon Dioxide Anion Gap BUN Creatinine Creat Clearance w eGFR Random Glucose Calcium Total Bilirubin AST ALT Alkaline Phosphatase Total Protein Albumin Urine Color Colorless Urine Appearance Clear Urine pH 5.0 Ur Specific [place] <= 1.005 Urine Protein Negative Urine Glucose (UA) Negative Urine Ketones Negative Urine Blood Negative Urine Nitrite Negative Urine Bilirubin Negative Urine Urobilinogen Negative RPR Titer Nonreactive HIV 1&2 Antibody Screen HIV P24 Antigen LABS NOTED. Assessment: 02/24/17 13:37 WITHDRAWAL SYMPTOMS. Plan: CONTINUE DETOX. RPEAT AST AND ALT ON 02/26/2017 FOR ELEVATED ADMISSION LEVELS. ADVISED PT. TO FOLLOW-UP WITH FIXING MACHINE OPERATOR DR. KELVIN WRIGHT ([place] AFTER DISCHARGE FROM DETOX FOR REPORTED HISTORY OF SURGICAL REMOVAL OF 2 LOBES OF RIGHT LUNG.
[2017-02-24] MEDS: chlordiazePOXIDE HCL 25 MG CAPSULE PO PRN (13:59)
[2017-02-24] MEDS: RANITIDINE HCL 150 MG TABLET (FP) PO SCH (22:26)
[2017-02-24] MEDS: THIAMINE HCL 100 MG TABLET (FP) PO SCH (22:26)
[2017-02-24] MEDS: diphenhydrAMINE HCL 50 MG CAPSULE PO PRN (22:26)
[2017-02-25] MEDS: diphenhydrAMINE HCL 50 MG CAPSULE PO PRN ×2 (00:34→22:51)
[2017-02-25] MEDS: chlordiazePOXIDE HCL 25 MG CAPSULE PO PRN ×3 (01:27→20:24)
[2017-02-25] MEDS: chlordiazePOXIDE HCL 25 MG CAPSULE PO SCH ×2 (06:09→10:29)
[2017-02-25] MEDS: GABAPENTIN 300 MG CAPSULE (FP) PO SCH ×3 (06:10→22:50)
[2017-02-25] MEDS: BUDESONIDE/FORMETEROL FUMARATE 80/4.5 mcg INHALER IH SCH ×2 (10:28→22:49)
[2017-02-25] MEDS: NICOTINE 21 MG/24 HOURS TOPICAL PATCH TD SCH (10:29)
[2017-02-25] MEDS: PANTOPRAZOLE 40 MG TABLET (FP) PO SCH (10:29)
[2017-02-25] MEDS: PRENATAL VITAMINS W/ FOLIC ACID TABLET (FP) PO SCH (10:29)
[2017-02-25] MEDS: PARoxetine HCL 10 MG TABLET (FP) PO SCH (10:29)
[2017-02-25] MEDS: MESALAMINE 800 MG TABLET.DR PO SCH ×4 (10:29→22:49)
--- NOTE | 2017-02-25 14:00 | PN ---
S CIWA - CIWA Score Nausea/Vomitin Muscle Tremors: 5 Anxiety: 4-Mod. Anxious/Guarded Agitation: 2 Paroxysmal Sweats: 3 Orientation: 0-Oriented Tacttile Disturbances: 0-None Auditory Disturbances: 0-None Visual Disturbances: 1-Very Mild Sensitivity Headache: 0-None Present CIWA-Ar Total Score: 18 BHS Progress Note (SOAP) Subjective: Interrupted sleep, Tremors, Stomach Cramping, Cold sensations, Sweating. Objective: PT. A & O X 3, OBSERVED AMBULATING ON UNIT. NO ACUTE DISTRESS. 02/25/17 13:57 Vital Signs Temperature 96.0 F L 02/25/17 10:26 Pulse Rate 93 H 02/25/17 10:26 Respiratory Rate 18 02/25/17 10:26 Blood Pressure 132/86 02/25/17 10:26 O2 Sat by Pulse Oximetry (%) Laboratory Tests 02/23/17 02/23/17 02/23/17 10:00 10:00 10:00 WBC 6.2 RBC 4.14 Hgb 14.2 Hct 40.8 MCV 98.4 H MCH 34.2 H MCHC 34.8 RDW 15.7 D Plt Count 189 MPV 10.1 Sodium 142 Potassium 4.5 Chloride 107 Carbon Dioxide 22 Anion Gap 13 BUN 10 D Creatinine 0.9 Creat Clearance w eGFR > 60 Random Glucose 80 D Calcium 9.0 Total Bilirubin 0.2 D AST 103 H D ALT 107 H D Alkaline Phosphatase 95 Total Protein 7.2 Albumin 4.2 Urine Color Urine Appearance Urine pH Ur Specific [place] Urine Protein Urine Glucose (UA) Urine Ketones Urine Blood Urine Nitrite Urine Bilirubin Urine Urobilinogen RPR Titer HIV 1&2 Antibody Screen Negative HIV P24 Antigen Negative 02/23/17 02/23/17 10:00 12:35 WBC RBC Hgb Hct MCV MCH MCHC RDW Plt Count MPV Sodium Potassium Chloride Carbon Dioxide Anion Gap BUN Creatinine Creat Clearance w eGFR Random Glucose Calcium Total Bilirubin AST ALT Alkaline Phosphatase Total Protein Albumin Urine Color Colorless Urine Appearance Clear Urine pH 5.0 Ur Specific [place] <= 1.005 Urine Protein Negative Urine Glucose (UA) Negative Urine Ketones Negative Urine Blood Negative Urine Nitrite Negative Urine Bilirubin Negative Urine Urobilinogen Negative RPR Titer Nonreactive HIV 1&2 Antibody Screen HIV P24 Antigen LABS NOTED. Assessment: 02/25/17 13:57 WITHDRAWAL SYMPTOMS. Plan: CONTINUE DETOX. PT/INR ORDERED ALONG WITH REPEAT AST, ALT FOR 02/26/2017.
[2017-02-25] MEDS: chlordiazePOXIDE 5 MG CAPSULE PO SCH ×2 (17:22→23:15)
[2017-02-25] MEDS: RANITIDINE HCL 150 MG TABLET (FP) PO SCH (22:49)
[2017-02-25] MEDS: THIAMINE HCL 100 MG TABLET (FP) PO SCH (22:50)
[2017-02-26] MEDS: chlordiazePOXIDE HCL 25 MG CAPSULE PO PRN (01:26)
[2017-02-26] MEDS: diphenhydrAMINE HCL 50 MG CAPSULE PO PRN ×2 (01:26→22:34)
[2017-02-26] MEDS: GABAPENTIN 300 MG CAPSULE (FP) PO SCH ×3 (05:16→22:33)
[2017-02-26] MEDS: chlordiazePOXIDE 5 MG CAPSULE PO SCH ×2 (05:17→10:49)
[2017-02-26 10:27] LABS: SGOT/AST 55 U/L (15-37); SGPT/ALT 98 U/L (12-78)
[2017-02-26 10:28] LABS: INR 0.9 (0.82-1.09); PROTHROMBIN TIME (PATIENT) 9.9 SEC (9.98-11.88)
[2017-02-26] MEDS: BUDESONIDE/FORMETEROL FUMARATE 80/4.5 mcg INHALER IH SCH ×2 (10:49→22:35)
[2017-02-26] MEDS: PRENATAL VITAMINS W/ FOLIC ACID TABLET (FP) PO SCH (10:50)
[2017-02-26] MEDS: MESALAMINE 800 MG TABLET.DR PO SCH ×4 (10:50→22:36)
[2017-02-26] MEDS: PARoxetine HCL 10 MG TABLET (FP) PO SCH (10:50)
[2017-02-26] MEDS: PANTOPRAZOLE 40 MG TABLET (FP) PO SCH (10:50)
[2017-02-26] MEDS: NICOTINE 21 MG/24 HOURS TOPICAL PATCH TD SCH (10:52)
--- NOTE | 2017-02-26 13:10 | PN ---
BHS Progress Note (SOAP) Subjective: Tremors, Anxious, Stomach Cramping, H/A. Objective: PT. A & O X 3, OBSERVED AMBULATING ON UNIT. NO ACUTE DISTRESS. 02/26/17 13:07 Vital Signs Temperature 97.4 F L 02/26/17 11:23 Pulse Rate 90 02/26/17 11:23 Respiratory Rate 18 02/26/17 11:23 Blood Pressure 139/82 02/26/17 11:23 O2 Sat by Pulse Oximetry (%) Laboratory Tests 02/23/17 02/23/17 02/23/17 10:00 10:00 10:00 WBC 6.2 RBC 4.14 Hgb 14.2 Hct 40.8 MCV 98.4 H MCH 34.2 H MCHC 34.8 RDW 15.7 D Plt Count 189 MPV 10.1 PT with INR INR Sodium 142 Potassium 4.5 Chloride 107 Carbon Dioxide 22 Anion Gap 13 BUN 10 D Creatinine 0.9 Creat Clearance w eGFR > 60 Random Glucose 80 D Calcium 9.0 Total Bilirubin 0.2 D AST 103 H D ALT 107 H D Alkaline Phosphatase 95 Total Protein 7.2 Albumin 4.2 Urine Color Urine Appearance Urine pH Ur Specific [place] Urine Protein Urine Glucose (UA) Urine Ketones Urine Blood Urine Nitrite Urine Bilirubin Urine Urobilinogen RPR Titer HIV 1&2 Antibody Screen Negative HIV P24 Antigen Negative 02/23/17 02/23/17 02/26/17 10:00 12:35 07:50 WBC RBC Hgb Hct MCV MCH MCHC RDW Plt Count MPV PT with INR INR Sodium Potassium Chloride Carbon Dioxide Anion Gap BUN Creatinine Creat Clearance w eGFR Random Glucose Calcium Total Bilirubin AST 55 H D ALT 98 H Alkaline Phosphatase Total Protein Albumin Urine Color Colorless Urine Appearance Clear Urine pH 5.0 Ur Specific [place] <= 1.005 Urine Protein Negative Urine Glucose (UA) Negative Urine Ketones Negative Urine Blood Negative Urine Nitrite Negative Urine Bilirubin Negative Urine Urobilinogen Negative RPR Titer Nonreactive HIV 1&2 Antibody Screen HIV P24 Antigen 02/26/17 07:50 WBC RBC Hgb Hct MCV MCH MCHC RDW Plt Count MPV PT with INR 9.90 L INR 0.90 Sodium Potassium Chloride Carbon Dioxide Anion Gap BUN Creatinine Creat Clearance w eGFR Random Glucose Calcium Total Bilirubin AST ALT Alkaline Phosphatase Total Protein Albumin Urine Color Urine Appearance Urine pH Ur Specific [place] Urine Protein Urine Glucose (UA) Urine Ketones Urine Blood Urine Nitrite Urine Bilirubin Urine Urobilinogen RPR Titer HIV 1&2 Antibody Screen HIV P24 Antigen LABS NOTED. RESULTS OF PT / INR AND REPEAT AST AND ALT NOTED. PATIENT MADE AWARE OF RESULTS. 02/26/17 13:08 Assessment: 02/26/17 13:07 WITHDRAWAL SYMPTOMS. Plan: CONTINUE DETOX. PATIENT ADVISED TO FOLLOW-UP WITH AIRPORT ENGINEER DR. KELVIN WRIGHT ([place] AFTER DISCHARGE FROM DETOX FOR MEDICAL ASSESSMENT AND FOR ELEVATED LIVER ENZYME LEVELS WHILE ADMITTED FOR DETOX.
[2017-02-26] MEDS: chlordiazePOXIDE HCL 10 MG CAPSULE PO SCH ×2 (17:09→22:33)
[2017-02-26] MEDS: RANITIDINE HCL 150 MG TABLET (FP) PO SCH (22:33)
[2017-02-26] MEDS: THIAMINE HCL 100 MG TABLET (FP) PO SCH (22:34)
[2017-02-27] MEDS: GABAPENTIN 300 MG CAPSULE (FP) PO SCH (05:21)
[2017-02-27] MEDS: chlordiazePOXIDE HCL 10 MG CAPSULE PO SCH (05:21)
[2017-02-27 06:44] VITALS: BP 111/77; PULSE 90; TEMP 98
[2017-02-27] MEDS: PANTOPRAZOLE 40 MG TABLET (FP) PO SCH (09:30)
[2017-02-27] MEDS: PRENATAL VITAMINS W/ FOLIC ACID TABLET (FP) PO SCH (09:30)
[2017-02-27] MEDS: PARoxetine HCL 10 MG TABLET (FP) PO SCH (09:30)
--- NOTE | 2017-02-27 20:49 | DS ---
[facility] Detox Discharge Summary Admission Date: 02/23/17 Discharge Date: 02/27/17 - History Present History: Alcohol Dependence Additional Comments: PATIENT GOING HOME AND REPORTS THAT HE WILL RETURN TO OUTPATIENT AA SUPPORT GROUP MEETINGS, HE ATTENDED PRIOR TO ADMISSION TO DETOX. PATIENT ALSO ADVISED TO FOLLOW-UP WITH TORCH SHEARER DR. KELVIN WRIGHT FOR MEDICAL ASSESSMENT, FOR ABNORMAL LIVER ENZYME LEVELS WHILE ADMITTED FOR DETOX, AND FOR HISTORY OF PARTIAL LOBECTOMY OF RIGHT LUNG. PATIENT WAS DISCHARGED FROM DETOX UNIT IN STABLE MEDICAL CONDITION. Pertinent Past History: COPD, Depression / anxiety, Ulcerative Colitis, GERD, Insomnia, History of Partial Lobectomy of Right Lung. - Physical Exam Results Vital Signs: Vital Signs Temperature 98 F 02/27/17 06:43 Pulse Rate 90 02/27/17 06:43 Respiratory Rate 16 02/27/17 06:43 Blood Pressure 111/77 02/27/17 06:43 O2 Sat by Pulse Oximetry (%) Pertinent Admission Physical Exam Findings: WITHDRAWAL SYMPTOMS. Laboratory Tests 02/23/17 02/23/17 02/23/17 10:00 10:00 10:00 WBC 6.2 RBC 4.14 Hgb 14.2 Hct 40.8 MCV 98.4 H MCH 34.2 H MCHC 34.8 RDW 15.7 D Plt Count 189 MPV 10.1 PT with INR INR Sodium 142 Potassium 4.5 Chloride 107 Carbon Dioxide 22 Anion Gap 13 BUN 10 D Creatinine 0.9 Creat Clearance w eGFR > 60 Random Glucose 80 D Calcium 9.0 Total Bilirubin 0.2 D AST 103 H D ALT 107 H D Alkaline Phosphatase 95 Total Protein 7.2 Albumin 4.2 Urine Color Urine Appearance Urine pH Ur Specific [place] Urine Protein Urine Glucose (UA) Urine Ketones Urine Blood Urine Nitrite Urine Bilirubin Urine Urobilinogen RPR Titer HIV 1&2 Antibody Screen Negative HIV P24 Antigen Negative 02/23/17 02/23/17 02/26/17 10:00 12:35 07:50 WBC RBC Hgb Hct MCV MCH MCHC RDW Plt Count MPV PT with INR INR Sodium Potassium Chloride Carbon Dioxide Anion Gap BUN Creatinine Creat Clearance w eGFR Random Glucose Calcium Total Bilirubin AST 55 H D ALT 98 H Alkaline Phosphatase Total Protein Albumin Urine Color Colorless Urine Appearance Clear Urine pH 5.0 Ur Specific [place] <= 1.005 Urine Protein Negative Urine Glucose (UA) Negative Urine Ketones Negative Urine Blood Negative Urine Nitrite Negative Urine Bilirubin Negative Urine Urobilinogen Negative RPR Titer Nonreactive HIV 1&2 Antibody Screen HIV P24 Antigen 02/26/17 07:50 WBC RBC Hgb Hct MCV MCH MCHC RDW Plt Count MPV PT with INR 9.90 L INR 0.90 Sodium Potassium Chloride Carbon Dioxide Anion Gap BUN Creatinine Creat Clearance w eGFR Random Glucose Calcium Total Bilirubin AST ALT Alkaline Phosphatase Total Protein Albumin Urine Color Urine Appearance Urine pH Ur Specific [place] Urine Protein Urine Glucose (UA) Urine Ketones Urine Blood Urine Nitrite Urine Bilirubin Urine Urobilinogen RPR Titer HIV 1&2 Antibody Screen HIV P24 Antigen LABS NOTED. - Treatment Hospital Course: Detox Protocol Followed, Detoxed Safely, Responded well, Discharged Condition Good Patient has Accepted a Rehab Referral to: NO. PT. TO RETURN TO SUPPORT GROUP PRIOR TO DETOX ADMISSION. - Medication Discharge Medications: Ambulatory Orders Albuterol Sulfate Inhaler - [Ventolin HFA Inhaler -] 2 puff IH Q4H PRN 08/07/16 Budesonide/Formeterol Fumarate [SYMBICORT 80/4.5mcg -] 1 puff IH BID 08/07/16 Mesalamine 800 mg PO QID 08/07/16 Pantoprazole Sodium [Protonix -] 40 mg PO DAILY 08/07/16 Buspirone HCl [Buspar -] 15 mg PO BID #60 tablet 11/02/16 Buspirone HCl [Buspar -] 15 mg PO BID #60 tablet 02/23/17 Famotidine [Pepcid -] 20 mg PO HS 02/23/17 Gabapentin [Neurontin -] 600 mg PO Q8H 02/23/17 Gabapentin [Neurontin -] 600 mg PO TID #90 capsule 02/23/17 Paroxetine HCl [Paxil -] 30 mg PO DAILY 02/23/17 Paroxetine HCl [Paxil -] 30 mg PO DAILY #30 tablet 02/23/17 - Diagnosis (1) Alcohol dependence with uncomplicated withdrawal Status: Acute (2) Insomnia Status: Acute Qualifiers: Insomnia type: unspecified Qualified Code(s): G47.00 - Insomnia, unspecified (3) Nicotine dependence Status: Chronic Qualifiers: Nicotine product type: cigarettes Substance use status: uncomplicated Qualified Code(s): F17.210 - Nicotine dependence, cigarettes, uncomplicated (4) Substance induced mood disorder Status: Acute (5) COPD (chronic obstructive pulmonary disease) Status: Chronic Qualifiers: Emphysema type: unspecified (6) Chronic GERD Status: Chronic (7) History of lobectomy of lung Status: Chronic (8) Mood disorder Status: Chronic (9) Ulcerative colitis Status: Chronic Qualifiers: Ulcerative colitis location: other ulcerative colitis Digestive disease complication type: without complication Qualified Code(s): K51.80 - Other ulcerative colitis without complications (10) Weight loss Status: Chronic - AMA Did Patient Leave Against Medical Advice: No
== END 2017-02-27 09:45 | disposition home or self-care (01) | DRG 897 ==
LOC: YASAS 09:20 → Y3N 11:13
PROVIDERS: ADMIT Internal Medicine; ATTEND Internal Medicine
PROC: HZ2ZZZZ Detoxification Services for Substance Abuse Treatment (ICD-10-PCS; principal; 2017-02-23)
DX: F10.230 Alcohol dependence with withdrawal, uncomplicated (principal); K51.80 Other ulcerative colitis without complications; F17.210 Nicotine dependence, cigarettes, uncomplicated; F19.24 Other psychoactive substance dependence with psychoactive substance-induced mood disorder; F39 Unspecified mood [affective] disorder; G47.00 Insomnia, unspecified; J44.9 Chronic obstructive pulmonary disease, unspecified; R63.4 Abnormal weight loss; Z90.2 Acquired absence of lung [part of]
CPT/HCPCS: 36415; 80053; 81003; 84450; 84460; 85027; 85610; 86593; 87389; 93005; 93010; 94640

== ENCOUNTER 2017-04-08 09:16 | Inpatient (IN) | payer BC ==
--- NOTE | 2017-04-08 12:45 | HP ---
CIWA Score - CIWA Score Nausea/Vomitin Muscle Tremors: 3 Anxiety: 3 Agitation: 3 Paroxysmal Sweats: 1-Minimal Palms Moist Orientation: 0-Oriented Tacttile Disturbances: 2-Mild Itch/Numbness/Burn Auditory Disturbances: 2-Mild Harshness/Frighten Visual Disturbances: 0-None Headache: 2-Mild CIWA-Ar Total Score: 19 Admission ROS BHS - HPI Chief Complaint: I NEED HELP TO STOP DRINKING ALCOHOL Allergies/Adverse Reactions: Allergies Allergy/AdvReac Type Severity Reaction Status Date / Time morphine Allergy Severe Verified 04/08/17 11:30 strawberry Allergy Severe Verified 10/29/16 10:42 peanut Allergy Mild Hives Verified 04/18/16 11:57 shellfish derived Allergy Mild Hives Verified 04/18/16 11:57 oxycodone HCl [From Percocet] AdvReac Severe Verified 04/18/16 11:57 EGG WHITE Allergy Mild Hives Uncoded 04/18/16 11:57 History of Present Illness: THIS 56 YEARS OLD MALE WITH ALCOHOL DEPENDENCE,SEEKING DETOX ,LAST TREATMENT [facility] 02/23/17 TO 02/27/17 SEIZURE LAST 1 WEEK AGO ASTHMA ,COPD,PANCREATITIS,ULCERATIVE COLITIS WEIGHT LOSS NICOTINE DEPENDENCE LONGEST PERIOD OF SOBRIETY 3 YEARS DEPRESSION Exam Limitations: No Limitations - Ebola screening Have you traveled outside of the country in the last 21 days: No Have you had contact with anyone from an Ebola affected area: No Have you been sick,other than usual withdrawal symptoms: No Do you have a fever: No - Review of Systems Constitutional: Loss of Appetite, Malaise, Night Sweats, Changes in sleep, Weakness, Unexplained wgt Loss EENT: reports: Nose Congestion Respiratory: reports: No Symptoms reported, Other (ASTHMA,COPD S/P RIGHT LOBECTOMY FOR CANCER 12/26/16 AT [facility] UPPER AND MIDDLE LOBECT) Cardiac: reports: Palpitations GI: reports: Diarrhea, Nausea, Vomiting, Abdominal cramping : reports: No Symptoms Reported Musculoskeletal: reports: Back Pain, Muscle Pain Integumentary: reports: Dryness Neuro: reports: Tremors Endocrine: reports: No Symptoms Reported Hematology: reports: No Symptoms Reported Psychiatric: reports: No Sypmtoms Reported, Judgement Intact, Mood/Affect Appropiate, Depressed Patient History - Patient Medical History Hx Anemia: Yes (ON ALBUTEROL INHALER AND SYMBOCORT) Hx Asthma: No Hx Chronic Obstructive Pulmonary Disease (COPD): Yes Hx Cancer: No Hx Cardiac Disorders: Yes (Pt has a hx of AFIB.) Hx Congestive Heart Failure: No Hx Hypertension: No Hx Hypercholesterolemia: No Hx Pacemaker: No HX Cerebrovascular Accident: No Hx Seizures: Yes (ETOH RELATED LAST 1 WK AGO) Hx Dementia: No Hx Diabetes: No Hx Gastrointestinal Disorders: Yes (GERD) Hx Liver Disease: No Hx Genitourinary Disorders: No Hx Sexually Transmitted Disorders: No Hx Renal Disease (ESRD): No Hx Thyroid Disease: No Hx Human Immunodeficiency Virus (HIV): No (negative LAST 2014 ) Hx Hepatitis C: No (negative) Hx Depression: Yes Hx Suicide Attempt: No Hx Bipolar Disorder: Yes Hx Schizophrenia: No Other Medical History: NO SUICIDAL,NO HOMICIDAL,S/P RIGHT LOBECTOMY FOR CANCCE OF LUNG - Patient Surgical History Past Surgical History: Yes Hx Neurologic Surgery: No Hx Cataract Extraction: No Hx Cardiac Surgery: No Hx Lung Surgery: Yes (lung biopsy jun 2015 at , chest tube R lobectomy in 12/28 ) Hx Breast Surgery: No Hx Breast Biopsy: No Hx Abdominal Surgery: Yes (LEFT INGUINAL HERNIA REPAIR AT AGE OF 4 YEARS) Hx Appendectomy: No Hx Cholecystectomy: No Hx Genitourinary Surgery: No Hx Section: No Hx Orthopedic Surgery: No Other Surgical History: Hernia repair at 4yrs old Anesthesia Reaction: No - PPD History Previous Implant?: Yes Documented Results: Negative w/proof Implanted On Prior [facility] Admission?: Yes Date: 10/31/16 Results: 0 MM - Smoking Cessation Smoking history: Current every day smoker Have you smoked in the past 12 months: Yes Aproximately how many cigarettes per day: 5 Cigars Per Day: 0 Hx Chewing Tobacco Use: No Initiated information on smoking cessation: Yes 'Breaking Loose' booklet given: 04/08/17 - Substance & Tx. History Hx Alcohol Use: Yes Hx Substance Use: No Hx Substance Use Treatment: Yes (02/23/17 TO 02/27/17 [facility]) - Substances Abused Alcohol Route: Oral Frequency: Daily Amount used: 3 PINTS VODKA Age of first use: 17 Date of Last Use: 04/08/17 Family Disease History - Family Disease History Family Disease History: Other: Father (etoh , renal, ), Mother (etoh, sclerodoerma, ), Brother (schizophrenia) Admission Physical Exam BHS - Vital Signs Vital Signs: Vital Signs - 24 hr 04/08/17 10:53 Temperature 96.2 F L Pulse Rate 104 H Respiratory 20 Rate Blood Pressure 129/93 - Physical General Appearance: Yes: Moderate Distress, Tremorous, Irritable, Sweating, Anxious HEENTM: Yes: Normocephalic, JOANNE, Pharynx Normal Respiratory: Yes: Lungs Clear, Normal Breath Sounds, No Respiratory Distress, Other (ASTHMA,COPD CANCER OF LUNG S/P RIGHT MIDDLE,AND UPPER LOBECOTY) Neck: Yes: Within Normal Limits, Supple, Trachea in good position Breast: Yes: Within Normal Limits Cardiology: Yes: Tachycardia Abdominal: Yes: Within Normal Limits, Normal Bowel Sounds, Non Tender, Flat, Soft Genitourinary: Yes: Within Normal Limits Back: Yes: Muscle Spasm Musculoskeletal: Yes: Back pain, Muscle Pain Extremities: Yes: Normal Range of Motion, Tremors Neurological: Yes: 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 NML intact, Alert, Motor Strength 5/5 Integumentary: Yes: Dry Lymphatic: Yes: Within Normal Limits - Diagnostic (1) Alcohol dependence with uncomplicated withdrawal Current Visit: Yes Status: Acute (2) COPD (chronic obstructive pulmonary disease) Current Visit: Yes Status: Chronic Qualifiers: Emphysema type: unspecified (3) Chronic GERD Current Visit: Yes Status: Chronic (4) History of lobectomy of lung Current Visit: No Status: Chronic Comment: sx done on 10/2016 (5) Nicotine dependence Current Visit: Yes Status: Acute Qualifiers: Nicotine product type: cigarettes Substance use status: uncomplicated Qualified Code(s): F17.210 - Nicotine dependence, cigarettes, uncomplicated; F17.210 - Nicotine dependence, cigarettes, uncomplicated (6) Ulcerative colitis Current Visit: No Status: Chronic Qualifiers: Ulcerative colitis location: other ulcerative colitis Digestive disease complication type: without complication Qualified Code(s): K51.80 - Other ulcerative colitis without complications; K51.80 - Other ulcerative colitis without complications; K51.80 - Other ulcerative colitis without complications; K51.80 - Other ulcerative colitis without complications (7) Weight loss Current Visit: Yes Status: Chronic (8) Pancreatitis Current Visit: Yes Status: Acute Qualifiers: Chronicity: chronic Pancreatitis type: alcohol induced Qualified Code(s): K86.0 - Alcohol-induced chronic pancreatitis; K86.0 - Alcohol -induced chronic pancreatitis; K86.0 - Alcohol-induced chronic pancreatitis; K86.0 - Alcohol-induced chronic pancreatitis (9) Insomnia secondary to depression with anxiety Current Visit: Yes Status: Acute (10) Seizure Current Visit: Yes Status: Acute (11) Alcohol dependence with uncomplicated intoxication Current Visit: Yes Status: Acute Cleared for Admission [facility] - Detox or Rehab [facility] Level of Care: Medically Managed Detox Regimen/Protocol: Librium [facility] Breath Alcohol Content Breath Alcohol Content: 0.269 Urine Drug Screen - Results Drug Screen Negative: No Urine Drug Screen Results: BZO-Benzodiazepines
[2017-04-08] MEDS ORDERED: MAGNESIUM HYDROX 2400MG/30ML ORAL SUSPENSION 30 ML CUP PO PRN (13:04)
[2017-04-08] MEDS ORDERED: ACETAMINOPHEN 325 MG TABLET (FP) PO PRN (13:04)
[2017-04-08] MEDS ORDERED: IBUPROFEN 400 MG TABLET (FP) PO PRN (13:04)
[2017-04-08] MEDS ORDERED: P-EPHED 60MG/TRIPROLIDI 2.5MG TABLET PO PRN (13:04)
[2017-04-08] MEDS ORDERED: MENTHOL/PHENOL 1 EACH UD MM PRN (13:04)
[2017-04-08] MEDS ORDERED: LOPERAMIDE HCL 2 MG CAPSULE PO PRN (13:04)
[2017-04-08] MEDS ORDERED: guaiFENesin/D-METHORPHAN HB 10 ML UNIT-DOSE CUPS PO PRN (13:04)
[2017-04-08] MEDS ORDERED: MAGNESIUM CITRATE 300 ML BOTTLE PO PRN (13:04)
[2017-04-08] MEDS ORDERED: MAG HYDROX/AL HYDROX/SIMETH 30 ML UNIT-DOSE CUP PO PRN (13:04)
[2017-04-08] MEDS ORDERED: ALBUTEROL SO4 18 GM HFA INHALER IH PRN (13:08)
[2017-04-08] MEDS: MESALAMINE 800 MG TABLET.DR PO SCH ×3 (14:36→22:24)
[2017-04-08] MEDS: chlordiazePOXIDE HCL 25 MG CAPSULE PO PRN ×2 (14:36→19:10)
[2017-04-08 15:16] LABS: HIV 1 & 2 AB NEGATIVE; HIV 1 AGp24 NEGATIVE
[2017-04-08 17:10] LABS: URINE APPEARANCE CLEAR; URINE BILIRUBIN NEGATIVE (NEGATIVE); URINE BLOOD NEGATIVE (NEGATIVE); URINE COLOR STRAW; URINE GLUCOSE (UA) NEGATIVE (NEGATIVE); URINE KETONE NEGATIVE (NEGATIVE); URINE NITRITE NEGATIVE (NEGATIVE); URINE PROTEIN NEGATIVE (NEGATIVE); URINE UROBILINOGEN NEGATIVE mg/dL (0.2-1.0)
[2017-04-08] MEDS: chlordiazePOXIDE HCL 25 MG CAPSULE PO SCH ×2 (17:18→22:21)
--- NOTE | 2017-04-08 17:25 | EKG ---
Test Reason : Blood Pressure : / mmHG Vent. Rate : 104 BPM Atrial Rate : 104 BPM P-R Int : 160 ms QRS Dur : 102 ms QT Int : 318 ms P-R-T Axes : 065 086 048 degrees QTc Int : 418 ms SINUS TACHYCARDIA INCOMPLETE RIGHT BUNDLE BRANCH BLOCK BORDERLINE ECG WHEN COMPARED WITH ECG OF 23-FEB-2017 12:44, NO SIGNIFICANT CHANGE WAS FOUND Confirmed by LINNEA COY MD ([id number]) on 04/08/2017 5:24:40 PM Referred By: Confirmed By:LINNEA COY MD
[2017-04-08 18:41] LABS: URINE LEUK ESTERASE Negative (NEGATIVE)
[2017-04-08] MEDS ORDERED: ONDANSETRON *ODT* 4 MG TABLET SL ONE (20:32)
[2017-04-08] MEDS: GABAPENTIN 300 MG CAPSULE (FP) PO SCH (22:21)
[2017-04-08] MEDS: THIAMINE HCL 100 MG TABLET (FP) PO SCH (22:22)
[2017-04-08] MEDS: BUDESONIDE/FORMETEROL FUMARATE 80/4.5 mcg INHALER IH SCH (22:22)
[2017-04-08] MEDS: diphenhydrAMINE HCL 50 MG CAPSULE PO PRN (22:24)
[2017-04-09] MEDS: chlordiazePOXIDE HCL 25 MG CAPSULE PO SCH ×4 (05:22→22:43)
[2017-04-09] MEDS: GABAPENTIN 300 MG CAPSULE (FP) PO SCH ×3 (05:22→22:43)
[2017-04-09] MEDS ORDERED: PARoxetine HCL 10 MG TABLET (FP) ONE (09:57)
[2017-04-09 09:58] LABS: MCH 34.5 pg (25.7-33.7); MCHC 35.1 g/dl (32.0-35.9); MEAN CELL VOLUME 98.4 fl (80-96); MEAN PLT VOLUME 9.7 fl (7.5-11.1); PLATELET COUNT 108 K/MM3 (134-434); RDW 15.9 % (11.9-15.9); WHITE BLOOD COUNT 7.2 K/mm3 (4.0-10.0)
[2017-04-09] MEDS ORDERED: PARoxetine HCL 30 MG TABLET PO SCH (10:00)
--- NOTE | 2017-04-09 10:26 | PN ---
S CIWA - CIWA Score Nausea/Vomitin Muscle Tremors: 3 Anxiety: 3 Agitation: 2 Paroxysmal Sweats: 2 Orientation: 0-Oriented Tacttile Disturbances: 1-Very Mild Itch/Numbness Auditory Disturbances: 0-None Visual Disturbances: 0-None Headache: 0-None Present CIWA-Ar Total Score: 14 S Progress Note (SOAP) Subjective: weakness, shakes, nausea, Objective: 04/09/17 10:22 Vital Signs Temperature 97.9 F 04/09/17 06:00 Pulse Rate 77 04/09/17 06:00 Respiratory Rate 20 04/09/17 06:00 Blood Pressure 101/60 04/09/17 06:00 O2 Sat by Pulse Oximetry (%) Laboratory Tests 04/08/17 04/08/17 04/09/17 12:30 16:45 06:00 WBC 7.2 RBC 4.68 Hgb 16.1 D Hct 46.0 MCV 98.4 H MCH 34.5 H MCHC 35.1 RDW 15.9 Plt Count 108 L D MPV 9.7 Urine Color Straw Urine Appearance Clear Urine pH 5.0 Ur Specific [place] 1.010 Urine Protein Negative Urine Glucose (UA) Negative Urine Ketones Negative Urine Blood Negative Urine Nitrite Negative Urine Bilirubin Negative Urine Urobilinogen Negative Ur Leukocyte Esterase Negative HIV 1&2 Antibody Screen Negative HIV P24 Antigen Negative pending labs pt aox3 in nad lying in bed Assessment: 04/09/17 10:23 withdrawal sx;s Plan: cont. detox increase fluids f/up pending labs
[2017-04-09] MEDS: PANTOPRAZOLE 40 MG TABLET (FP) PO SCH (10:29)
[2017-04-09] MEDS: PRENATAL VITAMINS W/ FOLIC ACID TABLET (FP) PO SCH (10:29)
[2017-04-09] MEDS: BUDESONIDE/FORMETEROL FUMARATE 80/4.5 mcg INHALER IH SCH ×2 (10:31→22:43)
[2017-04-09 10:32] LABS: ALBUMIN 4.1 g/dl (3.4-5.0); ALK PHOS 103 U/L (45-117); ANION GAP 10 (8-16); BILIRUBIN,TOTAL 0.3 mg/dL (0.2-1.0); CO2 24 mmol/L (21-32); CREATININE 0.8 mg/dL (0.7-1.3); GLUCOSE,RANDOM 118 mg/dL (74-106); SGOT/AST 18 U/L (15-37); SGPT/ALT 25 U/L (12-78); TOT PROT 7.7 g/dl (6.4-8.2)
[2017-04-09] MEDS: MESALAMINE 800 MG TABLET.DR PO SCH ×4 (10:34→22:43)
[2017-04-09] MEDS ORDERED: ONDANSETRON *ODT* 4 MG TABLET SL PRN (10:35)
[2017-04-09] MEDS: hydrOXYzine PAMOATE 25 MG CAPSULE (FP) PO PRN (12:22)
--- NOTE | 2017-04-09 12:28 | CONSULT ---
[facility] Psychiatric Consult - Data Date of interview: 04/09/17 Admission source: [facility] Identifying data: One of multiple admissions to [facility] for this 56 y/o male seeking detox treatment on for alcohol dependence.Patient is a without children,domiciled,unemployed and supported on [facility] benefits. Substance Abuse History: Patient confirmed a long standing history of alcohol dependence as indicated in this [facility] report. Smoking history: Current every day smoker. Have you smoked in the past 12 months: Yes. Aproximately how many cigarettes per day: 5. Cigars Per Day: 0. Hx Chewing Tobacco Use: No. Initiated information on smoking cessation: Yes. 'Breaking Loose' booklet given : 04/08/17. - Substance & Tx. History. Hx Alcohol Use: Yes. Hx Substance Use : No. Hx Substance Use Treatment: Yes (02/23/17 TO 02/27/17 [facility]). - Substances Abused. Alcohol. Route: Oral. Frequency: Daily. Amount used: 3 PINTS VODKA. Age of first use: 17. Date of Last Use: 04/08/17 Medical History: History of treatment for lung cancer (right lobectomy in 12/2016 ),atrial fibrillation,bronchial asthma,COPD,anemia,GERD,pancreatitis,alcohol- related seizures and ulcerative colitis.Noted remote history of left inguinal herniorraphy (age [age]). Psychiatric History: History of one psychiatric hospitalization ([facility]).Mr Garcia endorses MDD and Anxiety Disorder.No psychiatric OPD care.Patient relies on primary care doctors for medications refills (buspar 15 mg po bid + paxil 30 mg/day + gabapentin 600 mg po tid).Patient denies history of suicide attempts. Physical/Sexual Abuse/Trauma History: No reported history of abuse. Additional Comment: Urine Drug Screen Results: BZO-Benzodiazepines.Noted. Mental Status Exam - Mental Status Exam Alert and Oriented to: Time, Place, Person Cognitive Function: Good Patient Appearance: Well Groomed (takes showers,wears clean hospital gowns but stays unshaven) Mood: Hopeful, Euthymic Affect: Appropriate, Normal Range Patient Behavior: Appropriate, Cooperative Speech Pattern: Clear Voice Loudness: Normal Thought Process: Intact, Goal Oriented Thought Disorder: Not Present Hallucinations: Denies Suicidal Ideation: Denies Homicidal Ideation: Denies Insight/Judgement: Poor Sleep: Well Appetite: Good Muscle strength/Tone: Normal Gait/Station: Normal Psychiatric Findings - Problem List ([place] 1, 2,3) (1) Alcohol dependence with uncomplicated withdrawal Current Visit: Yes Status: Acute (2) Nicotine dependence Current Visit: Yes Status: Acute Qualifiers: Nicotine product type: cigarettes Substance use status: uncomplicated Qualified Code(s): F17.210 - Nicotine dependence, cigarettes, uncomplicated; F17.210 - Nicotine dependence, cigarettes, uncomplicated (3) Substance induced mood disorder Current Visit: Yes Status: Acute (4) Mood disorder Current Visit: Yes Status: Chronic (5) COPD (chronic obstructive pulmonary disease) Current Visit: Yes Status: Chronic Qualifiers: Emphysema type: unspecified (6) Chronic GERD Current Visit: Yes Status: Chronic (7) History of lobectomy of lung Current Visit: No Status: Chronic Comment: sx done on 10/2016 (8) Weight loss Current Visit: Yes Status: Chronic (9) Insomnia Current Visit: Yes Status: Acute Qualifiers: Insomnia type: unspecified Qualified Code(s): G47.00 - Insomnia, unspecified; G47.00 - Insomnia, unspecified - Initial Treatment Plan Initial Treatment Plan: Psychoeducation.Detoxification.Medications : paxil 30 mg po daily + gabapentin 600 mg po tid + buspar 15 mg po bid.Side effects/ benefits are discussed with patient.Mr Garcia agrees with this plan of care.Observation.
[2017-04-09] MEDS: chlordiazePOXIDE HCL 25 MG CAPSULE PO PRN (13:55)
[2017-04-09] MEDS: THIAMINE HCL 100 MG TABLET (FP) PO SCH (22:43)
[2017-04-09] MEDS: diphenhydrAMINE HCL 50 MG CAPSULE PO PRN (22:44)
[2017-04-10] MEDS: chlordiazePOXIDE HCL 25 MG CAPSULE PO PRN ×2 (02:45→13:52)
[2017-04-10] MEDS: chlordiazePOXIDE HCL 25 MG CAPSULE PO SCH ×2 (05:45→10:15)
[2017-04-10] MEDS: GABAPENTIN 300 MG CAPSULE (FP) PO SCH ×3 (05:45→22:16)
[2017-04-10] MEDS: PRENATAL VITAMINS W/ FOLIC ACID TABLET (FP) PO SCH (10:14)
[2017-04-10] MEDS: PARoxetine HCL 10 MG TABLET (FP) PO SCH (10:14)
[2017-04-10] MEDS: MESALAMINE 800 MG TABLET.DR PO SCH ×4 (10:14→22:16)
[2017-04-10] MEDS: BUDESONIDE/FORMETEROL FUMARATE 80/4.5 mcg INHALER IH SCH ×2 (10:14→22:17)
[2017-04-10] MEDS: PANTOPRAZOLE 40 MG TABLET (FP) PO SCH (10:14)
--- NOTE | 2017-04-10 13:15 | PN ---
[facility] CIWA - CIWA Score Nausea/Vomitin Muscle Tremors: 3 Anxiety: 3 Agitation: 3 Paroxysmal Sweats: 2 Orientation: 0-Oriented Tacttile Disturbances: 1-Very Mild Itch/Numbness Auditory Disturbances: 1-Very Mild Visual Disturbances: 0-None Headache: 2-Mild CIWA-Ar Total Score: 18 S Progress Note (SOAP) Subjective: ALERT,IRRITABLE,ANXIOUS,INTERRUPTED SLEEP,TREMOR Objective: 04/10/17 13:11 Vital Signs Temperature 96.8 F L 04/10/17 10:32 Pulse Rate 67 04/10/17 10:32 Respiratory Rate 18 04/10/17 10:32 Blood Pressure 129/84 04/10/17 10:32 O2 Sat by Pulse Oximetry (%) EKG SINUS TACHYCARDIA ,INCOMPLETED RBBB NO CHEST PAIN,NO SOB,NO DIZZINESS Laboratory Last Values WBC 7.2 K/mm3 (4.0-10.0) 04/09/17 06:00 RBC 4.68 M/mm3 (4.00-5.60) 04/09/17 06:00 Hgb 16.1 GM/dL (11.7-16.9) D 04/09/17 06:00 Hct 46.0 % (35.4-49) 04/09/17 06:00 MCV 98.4 fl (80-96) H 04/09/17 06:00 MCH 34.5 pg (25.7-33.7) H 04/09/17 06:00 MCHC 35.1 g/dl (32.0-35.9) 04/09/17 06:00 RDW 15.9 % (11.9-15.9) 04/09/17 06:00 Plt Count 108 K/MM3 (134-434) L D 04/09/17 06:00 MPV 9.7 fl (7.5-11.1) 04/09/17 06:00 Sodium 140 mmol/L (136-145) 04/09/17 06:00 Potassium 4.3 mmol/L (3.5-5.1) 04/09/17 06:00 Chloride 106 mmol/L (98-107) 04/09/17 06:00 Carbon Dioxide 24 mmol/L (21-32) 04/09/17 06:00 Anion Gap 10 (8-16) 04/09/17 06:00 BUN 8 mg/dL (7-18) 04/09/17 06:00 Creatinine 0.8 mg/dL (0.7-1.3) 04/09/17 06:00 Creat Clearance w eGFR > 60 (>60) 04/09/17 06:00 Random Glucose 118 mg/dL (74-106) H D 04/09/17 06:00 Calcium 9.0 mg/dL (8.5-10.1) 04/09/17 06:00 Total Bilirubin 0.3 mg/dL (0.2-1.0) D 04/09/17 06:00 AST 18 U/L (15-37) D 04/09/17 06:00 ALT 25 U/L (12-78) D 04/09/17 06:00 Alkaline Phosphatase 103 U/L (45-117) 04/09/17 06:00 Total Protein 7.7 g/dl (6.4-8.2) 04/09/17 06:00 Albumin 4.1 g/dl (3.4-5.0) 04/09/17 06:00 Urine Color Straw 04/08/17 16:45 Urine Appearance Clear 04/08/17 16:45 Urine pH 5.0 (5.0-8.0) 04/08/17 16:45 Ur Specific [place] 1.010 (1.005-1.025) 04/08/17 16:45 Urine Protein Negative (NEGATIVE) 04/08/17 16:45 Urine Glucose (UA) Negative (NEGATIVE) 04/08/17 16:45 Urine Ketones Negative (NEGATIVE) 04/08/17 16:45 Urine Blood Negative (NEGATIVE) 04/08/17 16:45 Urine Nitrite Negative (NEGATIVE) 04/08/17 16:45 Urine Bilirubin Negative (NEGATIVE) 04/08/17 16:45 Urine Urobilinogen Negative mg/dL (0.2-1.0) 04/08/17 16:45 Ur Leukocyte Esterase Negative (NEGATIVE) 04/08/17 16:45 RPR Titer Nonreactive (NONREACTIVE) 04/09/17 06:00 HIV 1&2 Antibody Screen Negative 04/08/17 12:30 HIV P24 Antigen Negative 04/08/17 12:30 04/10/17 13:14 Assessment: 04/10/17 13:14 WITHDRAWAL SYMPTOM Plan: CONTINUE DETOX
[2017-04-10] MEDS: chlordiazePOXIDE 5 MG CAPSULE PO SCH ×2 (17:56→22:16)
[2017-04-10] MEDS: THIAMINE HCL 100 MG TABLET (FP) PO SCH (22:15)
[2017-04-10] MEDS: diphenhydrAMINE HCL 50 MG CAPSULE PO PRN (22:18)
[2017-04-11] MEDS: chlordiazePOXIDE HCL 25 MG CAPSULE PO PRN ×2 (00:40→12:20)
[2017-04-11] MEDS: diphenhydrAMINE HCL 50 MG CAPSULE PO PRN ×2 (00:40→22:06)
[2017-04-11] MEDS: GABAPENTIN 300 MG CAPSULE (FP) PO SCH ×3 (05:43→22:06)
[2017-04-11] MEDS: chlordiazePOXIDE 5 MG CAPSULE PO SCH ×2 (05:43→10:11)
[2017-04-11] MEDS: PRENATAL VITAMINS W/ FOLIC ACID TABLET (FP) PO SCH (10:10)
[2017-04-11] MEDS: PANTOPRAZOLE 40 MG TABLET (FP) PO SCH (10:10)
[2017-04-11] MEDS: MESALAMINE 800 MG TABLET.DR PO SCH ×4 (10:10→22:07)
[2017-04-11] MEDS: PARoxetine HCL 10 MG TABLET (FP) PO SCH (10:11)
[2017-04-11] MEDS: BUDESONIDE/FORMETEROL FUMARATE 80/4.5 mcg INHALER IH SCH ×2 (10:11→22:07)
--- NOTE | 2017-04-11 13:21 | PN ---
S Progress Note (SOAP) Subjective: ALERT,IRRITABLE,INTERRUPTED SLEEP Objective: 04/11/17 13:20 Vital Signs Temperature 98.0 F 04/11/17 10:00 Pulse Rate 79 04/11/17 10:00 Respiratory Rate 18 04/11/17 10:00 Blood Pressure 120/66 04/11/17 10:00 O2 Sat by Pulse Oximetry (%) Assessment: 04/11/17 13:20 WITHDRAWAL SYMPTOM Plan: CONTINUE DETOX,DISCHARGE IN AM
[2017-04-11] MEDS: chlordiazePOXIDE HCL 10 MG CAPSULE PO SCH ×2 (17:02→22:06)
[2017-04-11] MEDS: THIAMINE HCL 100 MG TABLET (FP) PO SCH (22:08)
[2017-04-12] MEDS: hydrOXYzine PAMOATE 25 MG CAPSULE (FP) PO PRN (02:40)
[2017-04-12] MEDS: chlordiazePOXIDE HCL 10 MG CAPSULE PO SCH (05:39)
[2017-04-12] MEDS: GABAPENTIN 300 MG CAPSULE (FP) PO SCH (06:03)
--- NOTE | 2017-04-12 08:51 | DS ---
[facility] Detox Discharge Summary Admission Date: 04/08/17 Discharge Date: 04/12/17 - History Present History: Alcohol Dependence - Physical Exam Results Vital Signs: Vital Signs Temperature 97.7 F 04/12/17 06:16 Pulse Rate 70 04/12/17 06:16 Respiratory Rate 18 04/12/17 06:16 Blood Pressure 112/71 04/12/17 06:16 O2 Sat by Pulse Oximetry (%) - Treatment Hospital Course: Detox Protocol Followed, Detoxed Safely, Responded well, Discharged Condition Good, Rehab Referral Accepted - Medication Discharge Medications: Ambulatory Orders Albuterol Sulfate Inhaler - [Ventolin HFA Inhaler -] 2 puff IH Q4H PRN 08/07/16 Budesonide/Formeterol Fumarate [SYMBICORT 80/4.5mcg -] 1 puff IH BID 08/07/16 Mesalamine 800 mg PO QID 08/07/16 Pantoprazole Sodium [Protonix -] 40 mg PO DAILY 08/07/16 Buspirone HCl [Buspar -] 15 mg PO BID #60 tablet 02/23/17 Famotidine [Pepcid -] 20 mg PO HS 02/23/17 Gabapentin [Neurontin -] 600 mg PO TID #90 capsule 02/23/17 Paroxetine HCl [Paxil -] 30 mg PO DAILY #30 tablet 02/23/17 Buspirone HCl [Buspar -] 15 mg PO BID #60 tablet 04/09/17 Gabapentin [Neurontin] 600 mg PO TID #90 tablet 04/09/17 Paroxetine HCl [Paxil -] 30 mg PO DAILY #30 tablet 04/09/17 - Diagnosis (1) Alcohol dependence with uncomplicated withdrawal Current Visit: Yes Status: Chronic (2) Insomnia Current Visit: Yes Status: Acute Qualifiers: Insomnia type: unspecified Qualified Code(s): G47.00 - Insomnia, unspecified; G47.00 - Insomnia, unspecified (3) Insomnia secondary to depression with anxiety Current Visit: Yes Status: Acute (4) Nicotine dependence Current Visit: Yes Status: Chronic Qualifiers: Nicotine product type: cigarettes Substance use status: uncomplicated Qualified Code(s): F17.210 - Nicotine dependence, cigarettes, uncomplicated; F17.210 - Nicotine dependence, cigarettes, uncomplicated (5) Pancreatitis Current Visit: No Status: Inactive Qualifiers: Chronicity: chronic Pancreatitis type: alcohol induced Qualified Code(s): K86.0 - Alcohol-induced chronic pancreatitis; K86.0 - Alcohol -induced chronic pancreatitis; K86.0 - Alcohol-induced chronic pancreatitis; K86.0 - Alcohol-induced chronic pancreatitis (6) Seizure Current Visit: No Status: Suspected (7) Substance induced mood disorder Current Visit: Yes Status: Acute (8) COPD (chronic obstructive pulmonary disease) Current Visit: Yes Status: Chronic Qualifiers: Emphysema type: unspecified (9) Chronic GERD Current Visit: Yes Status: Chronic (10) Mood disorder Current Visit: Yes Status: Chronic (11) Weight loss Current Visit: Yes Status: Chronic (12) Anxiety disorder Current Visit: No Status: Acute (13) History of lobectomy of lung Current Visit: No Status: Chronic (14) Ulcerative colitis Current Visit: No Status: Chronic Qualifiers: Ulcerative colitis location: other ulcerative colitis Digestive disease complication type: without complication Qualified Code(s): K51.80 - Other ulcerative colitis without complications; K51.80 - Other ulcerative colitis without complications; K51.80 - Other ulcerative colitis without complications; K51.80 - Other ulcerative colitis without complications - AMA Did Patient Leave Against Medical Advice: No
[2017-04-12] MEDS: MESALAMINE 800 MG TABLET.DR PO SCH (09:06)
[2017-04-12] MEDS: PRENATAL VITAMINS W/ FOLIC ACID TABLET (FP) PO SCH (09:06)
[2017-04-12] MEDS: PARoxetine HCL 10 MG TABLET (FP) PO SCH (09:06)
[2017-04-12] MEDS: BUDESONIDE/FORMETEROL FUMARATE 80/4.5 mcg INHALER IH SCH (09:06)
[2017-04-12] MEDS: PANTOPRAZOLE 40 MG TABLET (FP) PO SCH (09:07)
[2017-04-12 09:40] VITALS: BP 114/85; PULSE 100; TEMP 96.8
== END 2017-04-12 09:33 | disposition home or self-care (01) | DRG 897 ==
LOC: YASAS 09:16 → Y6N 13:03
PROVIDERS: ADMIT Internal Medicine; ATTEND Internal Medicine
PROC: HZ2ZZZZ Detoxification Services for Substance Abuse Treatment (ICD-10-PCS; principal; 2017-04-08)
DX: F10.230 Alcohol dependence with withdrawal, uncomplicated (principal); K86.0 Alcohol-induced chronic pancreatitis; F17.210 Nicotine dependence, cigarettes, uncomplicated; F31.9 Bipolar disorder, unspecified; F41.9 Anxiety disorder, unspecified; F19.24 Other psychoactive substance dependence with psychoactive substance-induced mood disorder; J45.909 Unspecified asthma, uncomplicated; J44.9 Chronic obstructive pulmonary disease, unspecified; K21.9 Gastro-esophageal reflux disease without esophagitis; R63.4 Abnormal weight loss; Z68.20 Body mass index [BMI] 20.0-20.9, adult; Z86.69 Personal history of other diseases of the nervous system and sense organs
CPT/HCPCS: 36415; 80053; 81003; 85027; 86593; 87389; 93005; 93010

== ENCOUNTER 2017-05-10 09:03 | Inpatient (IN) | payer BC, OTHER ==
[2017-05-10 09:22] VITALS: BMI 23.5
--- NOTE | 2017-05-10 14:09 | HP ---
CIWA Score - CIWA Score Nausea/Vomitin-No Nausea/No Vomiting Muscle Tremors: 4-Moderate,w/Arms Extend Anxiety: 3 Agitation: 3 Paroxysmal Sweats: 3 Orientation: 0-Oriented Tacttile Disturbances: 0-None Auditory Disturbances: 0-None Visual Disturbances: 0-None Headache: 1-Very Mild CIWA-Ar Total Score: 14 Admission ROS S - [facility] Chief Complaint: I am here for detox. Allergies/Adverse Reactions: Allergies Allergy/AdvReac Type Severity Reaction Status Date / Time morphine Allergy Severe Verified 05/10/17 10:36 strawberry Allergy Severe Verified 05/10/17 10:36 peanut Allergy Mild Hives Verified 05/10/17 10:36 shellfish derived Allergy Mild Hives Verified 05/10/17 10:36 oxycodone HCl [From Percocet] AdvReac Severe Verified 05/10/17 10:36 EGG WHITE Allergy Mild Hives Uncoded 05/10/17 10:36 History of Present Illness: pt is a 56yr old male with a history of alcohol dependence seeking detox for treatment. Exam Limitations: No Limitations - Ebola screening Have you traveled outside of the country in the last 21 days: No (N) Have you had contact with anyone from an Ebola affected area: No Have you been sick,other than usual withdrawal symptoms: No Do you have a fever: No - Review of Systems Constitutional: Chills, Diaphoresis, Loss of Appetite, Night Sweats, Changes in sleep EENT: reports: Tearing, Nose Congestion Respiratory: reports: No Symptoms reported Cardiac: reports: Lightheadedness, Syncope GI: reports: Nausea, Poor Fluid Intake : reports: No Symptoms Reported Musculoskeletal: reports: No Symptoms Reported Integumentary: reports: Flushing, Sweating Neuro: reports: Headache, Seizure (last seizure >1yr ago), Tingling, Tremors Endocrine: reports: Excessive Sweating, Flushing, Intolerance to Cold, Intolerance to Heat Hematology: reports: No Symptoms Reported Psychiatric: reports: Judgement Intact, Mood/Affect Appropiate, Orientated x3, Agitated, Anxious Other Systems: Reviewed and Negative Patient History - Patient Medical History Hx Anemia: No Hx Asthma: Yes Hx Chronic Obstructive Pulmonary Disease (COPD): Yes Hx Cancer: No Hx Cardiac Disorders: No Hx Congestive Heart Failure: No Hx Hypertension: No Hx Hypercholesterolemia: No Hx Pacemaker: No HX Cerebrovascular Accident: No Hx Seizures: Yes (alcohol related once in 06/2015) Hx Dementia: No Hx Diabetes: No Hx Gastrointestinal Disorders: Yes (acid reflux, ucerative colitis) Hx Liver Disease: No Hx Genitourinary Disorders: No Hx Sexually Transmitted Disorders: No Hx Renal Disease (ESRD): No Hx Thyroid Disease: No Hx Human Immunodeficiency Virus (HIV): No (negative LAST 2014 ) Hx Hepatitis C: No (negative) Hx Depression: Yes Hx Suicide Attempt: No Hx Bipolar Disorder: No Hx Schizophrenia: No Other Medical History: anxiety - Patient Surgical History Past Surgical History: Yes Hx Neurologic Surgery: No Hx Cataract Extraction: No Hx Cardiac Surgery: No Hx Lung Surgery: Yes (lung biopsy jun 2015 at , chest tube R lobectomy in 12/28 ) Hx Breast Surgery: No Hx Breast Biopsy: No Hx Abdominal Surgery: Yes (LEFT INGUINAL HERNIA REPAIR AT AGE OF 4 YEARS) Hx Appendectomy: No Hx Cholecystectomy: No Hx Genitourinary Surgery: No Hx Section: No Hx Orthopedic Surgery: No Other Surgical History: Hernia repair at 4yrs old Anesthesia Reaction: No - PPD History Previous Implant?: Yes Documented Results: Negative w/proof Implanted On Prior [facility] Admission?: Yes Date: 10/31/16 Results: 0 mm PPD to be Administered?: No - Reproductive History Patient is a Female of Child Bearing Age (11 -55 yrs old): No - Smoking Cessation Smoking history: Current every day smoker Have you smoked in the past 12 months: Yes Aproximately how many cigarettes per day: 2 Cigars Per Day: 0 Hx Chewing Tobacco Use: No Initiated information on smoking cessation: Yes 'Breaking Loose' booklet given: 05/10/17 - Substance & Tx. History Hx Alcohol Use: Yes Hx Substance Use: No Substance Use Type: Alcohol Hx Substance Use Treatment: Yes - Substances Abused Alcohol-vodka Route: Oral Frequency: Daily Amount used: 3-4 pts. Age of first use: 17 Date of Last Use: 05/10/17 Family Disease History - Family Disease History Family Disease History: Other: Father (etoh , renal, ), Mother (etoh, sclerodoerma, ), Brother (schizophrenia) Admission Physical Exam [facility] - Vital Signs Vital Signs: Vital Signs - 24 hr 05/10/17 09:20 Temperature 97.8 F Pulse Rate 120 H Respiratory 18 Rate Blood Pressure 110/86 - Physical General Appearance: Yes: Appropriately Dressed, Moderate Distress, Thin, Tremorous, Irritable, Sweating, Anxious HEENTM: Yes: Hearing grossly Normal, Normal Voice, Nasal Congestion, Rhinorrhea Respiratory: Yes: Lungs Clear, Normal Breath Sounds, No Respiratory Distress Neck: Yes: No masses,lesions,Nodules Breast: Yes: Within Normal Limits Cardiology: Yes: Regular Rhythm, Regular Rate, S1, S2 Abdominal: Yes: Normal Bowel Sounds, Non Tender Genitourinary: Yes: Within Normal Limits Back: Yes: Normal Inspection Musculoskeletal: Yes: full range of Motion Extremities: Yes: Normal Capillary Refill, Normal Inspection, Tremors Neurological: Yes: Fully Oriented, Alert, Normal Response Integumentary: Yes: Normal Color, Diaphoresis Lymphatic: Yes: Within Normal Limits - Diagnostic (1) Alcohol dependence with uncomplicated withdrawal Current Visit: Yes Status: Chronic (2) COPD (chronic obstructive pulmonary disease) Current Visit: Yes Status: Chronic Qualifiers: Emphysema type: unspecified (3) Chronic GERD Current Visit: Yes Status: Chronic (4) History of lobectomy of lung Current Visit: No Status: Chronic Comment: sx done on 10/2016 (5) Nicotine dependence Current Visit: Yes Status: Chronic Qualifiers: Nicotine product type: cigarettes Substance use status: uncomplicated Qualified Code(s): F17.210 - Nicotine dependence, cigarettes, uncomplicated (6) Ulcerative colitis Current Visit: Yes Status: Chronic Qualifiers: Ulcerative colitis location: other ulcerative colitis Digestive disease complication type: without complication Qualified Code(s): K51.80 - Other ulcerative colitis without complications (7) Weight loss Current Visit: Yes Status: Chronic (8) Seizure Current Visit: No Status: Suspected Cleared for Admission [facility] - Detox or Rehab [facility] Level of Care: Medically Managed Detox Regimen/Protocol: Librium [facility] Breath Alcohol Content Breath Alcohol Content: 0.220 Urine Drug Screen - Results Drug Screen Negative: No Urine Drug Screen Results: BZO-Benzodiazepines
[2017-05-10] MEDS ORDERED: chlordiazePOXIDE HCL 25 MG CAPSULE PO PRN (14:11)
[2017-05-10] MEDS ORDERED: MAGNESIUM HYDROX 2400MG/30ML ORAL SUSPENSION 30 ML CUP PO PRN (14:11)
[2017-05-10] MEDS ORDERED: IBUPROFEN 400 MG TABLET (FP) PO PRN (14:11)
[2017-05-10] MEDS ORDERED: MAGNESIUM CITRATE 300 ML BOTTLE PO PRN (14:11)
[2017-05-10] MEDS ORDERED: LOPERAMIDE HCL 2 MG CAPSULE PO PRN (14:11)
[2017-05-10] MEDS ORDERED: guaiFENesin/D-METHORPHAN HB 10 ML UNIT-DOSE CUPS PO PRN (14:11)
[2017-05-10] MEDS ORDERED: MENTHOL/PHENOL 1 EACH UD MM PRN (14:11)
[2017-05-10] MEDS ORDERED: MAG HYDROX/AL HYDROX/SIMETH 30 ML UNIT-DOSE CUP PO PRN (14:11)
[2017-05-10] MEDS ORDERED: P-EPHED 60MG/TRIPROLIDI 2.5MG TABLET PO PRN (14:11)
[2017-05-10] MEDS ORDERED: chlordiazePOXIDE HCL 25 MG CAPSULE PO ONE (14:15)
[2017-05-10] MEDS ORDERED: cloNIDine HCL 0.1 MG TABLET PO ONE (14:17)
[2017-05-10] MEDS ORDERED: ONDANSETRON *ODT* 4 MG TABLET SL PRN (14:40)
[2017-05-10] MEDS ORDERED: ONDANSETRON *ODT* 4 MG TABLET SL ONE (14:40)
[2017-05-10] MEDS: MESALAMINE 800 MG TABLET.DR PO SCH ×2 (17:15→22:13)
[2017-05-10] MEDS: chlordiazePOXIDE HCL 25 MG CAPSULE PO SCH ×2 (17:15→22:13)
[2017-05-10] MEDS: hydrOXYzine PAMOATE 50 MG CAPSULE (FP) PO PRN ×2 (19:32→23:34)
[2017-05-10 22:03] LABS: URINE APPEARANCE CLEAR; URINE BILIRUBIN NEGATIVE (NEGATIVE); URINE BLOOD NEGATIVE (NEGATIVE); URINE COLOR STRAW; URINE GLUCOSE (UA) 1+ (NEGATIVE); URINE KETONE NEGATIVE (NEGATIVE); URINE NITRITE NEGATIVE (NEGATIVE); URINE PROTEIN NEGATIVE (NEGATIVE); URINE UROBILINOGEN NEGATIVE mg/dL (0.2-1.0)
[2017-05-10] MEDS: BUDESONIDE/FORMETEROL FUMARATE 80/4.5 mcg INHALER IH SCH (22:13)
[2017-05-10] MEDS: THIAMINE HCL 100 MG TABLET (FP) PO SCH (22:13)
[2017-05-11] MEDS: chlordiazePOXIDE HCL 25 MG CAPSULE PO SCH ×4 (05:21→22:16)
[2017-05-11 09:34] LABS: URINE LEUK ESTERASE Negative (NEGATIVE)
[2017-05-11 10:10] LABS: MCH 33.5 pg (25.7-33.7); MCHC 34.3 g/dl (32.0-35.9); MEAN CELL VOLUME 97.6 fl (80-96); MEAN PLT VOLUME 9.6 fl (7.5-11.1); PLATELET COUNT 263 K/MM3 (134-434); RDW 14.3 % (11.9-15.9); WHITE BLOOD COUNT 4.5 K/mm3 (4.0-10.0)
[2017-05-11] MEDS: PANTOPRAZOLE 40 MG TABLET (FP) PO SCH (10:15)
[2017-05-11] MEDS: MESALAMINE 800 MG TABLET.DR PO SCH ×4 (10:15→22:15)
[2017-05-11] MEDS: PRENATAL VITAMINS W/ FOLIC ACID TABLET (FP) PO SCH (10:15)
[2017-05-11] MEDS: NICOTINE 21 MG/24 HOURS TOPICAL PATCH TD SCH (10:16)
[2017-05-11] MEDS: BUDESONIDE/FORMETEROL FUMARATE 80/4.5 mcg INHALER IH SCH ×2 (10:16→22:15)
--- NOTE | 2017-05-11 10:17 | EKG ---
Test Reason : Blood Pressure : / mmHG Vent. Rate : 107 BPM Atrial Rate : 107 BPM P-R Int : 150 ms QRS Dur : 092 ms QT Int : 328 ms P-R-T Axes : 062 070 041 degrees QTc Int : 437 ms SINUS TACHYCARDIA OTHERWISE NORMAL ECG WHEN COMPARED WITH ECG OF 15-APR-2017 22:43, NO SIGNIFICANT CHANGE WAS FOUND Confirmed by CORNELL MCKEON MD ([id number]) on 05/11/2017 10:17:27 AM Referred By: Confirmed By:CORNELL MCKEON MD
--- NOTE | 2017-05-11 10:39 | PN ---
[facility] CIWA - CIWA Score Nausea/Vomitin-No Nausea/No Vomiting Muscle Tremors: 4-Moderate,w/Arms Extend Anxiety: 4-Mod. Anxious/Guarded Agitation: 4-Moderately Restless Paroxysmal Sweats: 1-Minimal Palms Moist Orientation: 0-Oriented Tacttile Disturbances: 3-Moderate Itch/Numb/Burn Auditory Disturbances: 0-None Visual Disturbances: 0-None Headache: 0-None Present CIWA-Ar Total Score: 16 [facility] Progress Note (SOAP) Subjective: ANXIETY,TREMORS,SWEATS, INTERMITTENT SLEEP. Objective: 05/11/17 10:39 Vital Signs Temperature 97.6 F 05/11/17 09:06 Pulse Rate 98 H 05/11/17 09:06 Respiratory Rate 18 05/11/17 09:06 Blood Pressure 113/79 05/11/17 09:06 O2 Sat by Pulse Oximetry (%) Laboratory Last Values WBC 4.5 K/mm3 (4.0-10.0) D 05/11/17 05:45 RBC 4.60 M/mm3 (4.00-5.60) 05/11/17 05:45 Hgb 15.4 GM/dL (11.7-16.9) 05/11/17 05:45 Hct 44.9 % (35.4-49) 05/11/17 05:45 MCV 97.6 fl (80-96) H 05/11/17 05:45 MCH 33.5 pg (25.7-33.7) 05/11/17 05:45 MCHC 34.3 g/dl (32.0-35.9) 05/11/17 05:45 RDW 14.3 % (11.9-15.9) 05/11/17 05:45 Plt Count 263 K/MM3 (134-434) D 05/11/17 05:45 MPV 9.6 fl (7.5-11.1) 05/11/17 05:45 Urine Color Straw 05/10/17 15:00 Urine Appearance Clear 05/10/17 15:00 Urine pH 5.0 (5.0-8.0) 05/10/17 15:00 Ur Specific [place] 1.008 (1.001-1.035) 05/10/17 15:00 Urine Protein Negative (NEGATIVE) 05/10/17 15:00 Urine Glucose (UA) 1+ (NEGATIVE) H 05/10/17 15:00 Urine Ketones Negative (NEGATIVE) 05/10/17 15:00 Urine Blood Negative (NEGATIVE) 05/10/17 15:00 Urine Nitrite Negative (NEGATIVE) 05/10/17 15:00 Urine Bilirubin Negative (NEGATIVE) 05/10/17 15:00 Urine Urobilinogen Negative mg/dL (0.2-1.0) 05/10/17 15:00 Ur Leukocyte Esterase Negative (NEGATIVE) 05/10/17 15:00 Assessment: 05/11/17 10:39 WITHDRAWAL SX Plan: CONTINUE DETOX
[2017-05-11 10:51] LABS: ALBUMIN 4.1 g/dl (3.4-5.0); ALK PHOS 104 U/L (45-117); ANION GAP 9 (8-16); BILIRUBIN,TOTAL 0.4 mg/dL (0.2-1.0); CALCIUM 8.7 mg/dL (8.5-10.1); CO2 28 mmol/L (21-32); CREATININE 0.8 mg/dL (0.7-1.3); GLUCOSE,RANDOM 117 mg/dL (74-106); SGOT/AST 25 U/L (15-37); SGPT/ALT 40 U/L (12-78); TOT PROT 7.8 g/dl (6.4-8.2)
--- NOTE | 2017-05-11 10:54 | CONSULT ---
[facility] Psychiatric Consult - Data Date of interview: 05/11/17 Admission source: [facility] Identifying data: Another admission to [facility] for this 56 y/o male seeking detox treatment on [address] [place] [address] for alcohol dependence.Patient is a without children,domiciled,unemployed and supported on [facility] benefits. Substance Abuse History: Discussed in this session.Mr Garcia admits to active alcohol abuse as detailed in this [facility] report : Smoking history: Current every day smoker. Have you smoked in the past 12 months: Yes. Aproximately how many cigarettes per day: 2. Cigars Per Day: 0. Hx Chewing Tobacco Use: No. Initiated information on smoking cessation: Yes. 'Breaking Loose' booklet given: 05/10/17. - Substance & Tx. History. Hx Alcohol Use: Yes. Hx Substance Use: No. Substance Use Type: Alcohol. Hx Substance Use Treatment: Yes. - Substances Abused. Alcohol-vodka. Route: Oral. Frequency: Daily. Amount used: 3-4 pts. Age of first use: 17. Date of Last Use: 05/10/17 Medical History: History of treatment for lung cancer (right lobectomy in 12/2016 ),atrial fibrillation,bronchial asthma,COPD,anemia,GERD,pancreatitis,alcohol- related seizures and ulcerative colitis.Noted remote history of left inguinal herniorraphy (age [age]). Psychiatric History: History of one psychiatric hospitalization ([facility]).Mr Garcia endorses MDD and Anxiety Disorder.No psychiatric OPD care after multiple discharges from [facility].Left AMA from [address] on 04/20/17.Patient ignored medications refills (buspar 15 mg po bid + paxil 30 mg/day + gabapentin 600 mg po tid) issued on 04/16/17 by this gag writer from [address] [place] [address].Patient is chronically non-adherent to psychiatric aftercare.Denies history of suicide attempts. Physical/Sexual Abuse/Trauma History: No reported history of abuse. Additional Comment: Urine Drug Screen Results: BZO-Benzodiazepines.Noted. Mental Status Exam - Mental Status Exam Alert and Oriented to: Time, Place, Person Cognitive Function: Grossly Intact Patient Appearance: Unkempt, Disheveled Mood: Nervous, Anxious Affect: Mood Congruent Patient Behavior: Fatigued, Cooperative Speech Pattern: Clear Voice Loudness: Normal Thought Process: Goal Oriented Thought Disorder: Not Present Hallucinations: Denies Suicidal Ideation: Denies Homicidal Ideation: Denies Insight/Judgement: Poor Appetite: Fair Muscle strength/Tone: Normal Gait/Station: Other (wals with a cane) Psychiatric Findings - Problem List ([place] 1, 2,3) (1) Alcohol dependence with uncomplicated withdrawal Current Visit: Yes Status: Acute (2) Nicotine dependence Current Visit: Yes Status: Acute Qualifiers: Nicotine product type: cigarettes Substance use status: in withdrawal Qualified Code(s): F17.213 - Nicotine dependence, cigarettes, with withdrawal (3) Substance induced mood disorder Current Visit: Yes Status: Chronic - Initial Treatment Plan Initial Treatment Plan: Psychoeducation.Detoxification in progress.Patient declines to take any medications other than drugs for detoxification purposes.Observation.
[2017-05-11] MEDS: THIAMINE HCL 100 MG TABLET (FP) PO SCH (22:14)
[2017-05-11] MEDS: hydrOXYzine PAMOATE 50 MG CAPSULE (FP) PO PRN (22:16)
[2017-05-12] MEDS: chlordiazePOXIDE HCL 25 MG CAPSULE PO SCH ×2 (05:06→10:05)
[2017-05-12] MEDS: BUDESONIDE/FORMETEROL FUMARATE 80/4.5 mcg INHALER IH SCH ×2 (10:04→22:10)
[2017-05-12] MEDS: PANTOPRAZOLE 40 MG TABLET (FP) PO SCH (10:04)
[2017-05-12] MEDS: MESALAMINE 800 MG TABLET.DR PO SCH ×4 (10:05→22:12)
[2017-05-12] MEDS: NICOTINE 21 MG/24 HOURS TOPICAL PATCH TD SCH (10:05)
[2017-05-12] MEDS: PRENATAL VITAMINS W/ FOLIC ACID TABLET (FP) PO SCH (10:05)
--- NOTE | 2017-05-12 10:47 | PN ---
[facility] CIWA - CIWA Score Nausea/Vomitin-No Nausea/No Vomiting Muscle Tremors: 4-Moderate,w/Arms Extend Anxiety: 5 Agitation: 4-Moderately Restless Paroxysmal Sweats: 1-Minimal Palms Moist Orientation: 0-Oriented Tacttile Disturbances: 3-Moderate Itch/Numb/Burn Auditory Disturbances: 0-None Visual Disturbances: 0-None Headache: 0-None Present CIWA-Ar Total Score: 17 S Progress Note (SOAP) Subjective: ANXIETY,SWEATS,STOMACH UPSET-DIARRHEA.PT WANTS PROTONIX CHANGED TO ZANTAC. SAYS NO RELIEF WITH PROTONIX. Objective: 05/12/17 10:45 Vital Signs Temperature 96.6 F L 05/12/17 09:04 Pulse Rate 84 05/12/17 09:04 Respiratory Rate 18 05/12/17 09:04 Blood Pressure 119/79 05/12/17 09:04 O2 Sat by Pulse Oximetry (%) Laboratory Last Values WBC 4.5 K/mm3 (4.0-10.0) D 05/11/17 05:45 RBC 4.60 M/mm3 (4.00-5.60) 05/11/17 05:45 Hgb 15.4 GM/dL (11.7-16.9) 05/11/17 05:45 Hct 44.9 % (35.4-49) 05/11/17 05:45 MCV 97.6 fl (80-96) H 05/11/17 05:45 MCH 33.5 pg (25.7-33.7) 05/11/17 05:45 MCHC 34.3 g/dl (32.0-35.9) 05/11/17 05:45 RDW 14.3 % (11.9-15.9) 05/11/17 05:45 Plt Count 263 K/MM3 (134-434) D 05/11/17 05:45 MPV 9.6 fl (7.5-11.1) 05/11/17 05:45 Sodium 138 mmol/L (136-145) 05/11/17 05:45 Potassium 4.2 mmol/L (3.5-5.1) 05/11/17 05:45 Chloride 101 mmol/L (98-107) 05/11/17 05:45 Carbon Dioxide 28 mmol/L (21-32) 05/11/17 05:45 Anion Gap 9 (8-16) 05/11/17 05:45 BUN 9 mg/dL (7-18) D 05/11/17 05:45 Creatinine 0.8 mg/dL (0.7-1.3) D 05/11/17 05:45 Creat Clearance w eGFR > 60 (>60) 05/11/17 05:45 Random Glucose 117 mg/dL (74-106) H 05/11/17 05:45 Calcium 8.7 mg/dL (8.5-10.1) 05/11/17 05:45 Total Bilirubin 0.4 mg/dL (0.2-1.0) 05/11/17 05:45 AST 25 U/L (15-37) D 05/11/17 05:45 ALT 40 U/L (12-78) 05/11/17 05:45 Alkaline Phosphatase 104 U/L (45-117) 05/11/17 05:45 Total Protein 7.8 g/dl (6.4-8.2) 05/11/17 05:45 Albumin 4.1 g/dl (3.4-5.0) 05/11/17 05:45 Urine Color Straw 05/10/17 15:00 Urine Appearance Clear 05/10/17 15:00 Urine pH 5.0 (5.0-8.0) 05/10/17 15:00 Ur Specific [place] 1.008 (1.001-1.035) 05/10/17 15:00 Urine Protein Negative (NEGATIVE) 05/10/17 15:00 Urine Glucose (UA) 1+ (NEGATIVE) H 05/10/17 15:00 Urine Ketones Negative (NEGATIVE) 05/10/17 15:00 Urine Blood Negative (NEGATIVE) 05/10/17 15:00 Urine Nitrite Negative (NEGATIVE) 05/10/17 15:00 Urine Bilirubin Negative (NEGATIVE) 05/10/17 15:00 Urine Urobilinogen Negative mg/dL (0.2-1.0) 05/10/17 15:00 Ur Leukocyte Esterase Negative (NEGATIVE) 05/10/17 15:00 RPR Titer Nonreactive (NONREACTIVE) 05/11/17 05:45 Assessment: 05/12/17 10:45 WITHDRAWAL SX Plan: CONTINUE DETOX ZANTAC 150 MG PO BID D/C PROTONIX
[2017-05-12] MEDS: ALBUTEROL SO4 18 GM HFA INHALER IH PRN ×2 (15:11→22:11)
[2017-05-12] MEDS: chlordiazePOXIDE 5 MG CAPSULE PO SCH ×2 (17:04→22:12)
--- NOTE | 2017-05-12 18:09 | PN ---
[facility] Progress Note Note: Psychiatry Attending's note : Patient approached this telegraphic typewriter operator. Reason : wants to resume medications. Intervention : Gabapentin 300 mg po tid Buspar 10 mg po bid. Ordered.Side effects/benefits discussed with patient.
[2017-05-12] MEDS: RANITIDINE HCL 150 MG TABLET (FP) PO SCH (22:12)
[2017-05-12] MEDS: THIAMINE HCL 100 MG TABLET (FP) PO SCH (22:12)
[2017-05-12] MEDS: busPIRone HCL 10 MG TABLET (FP) PO SCH (22:12)
[2017-05-12] MEDS: GABAPENTIN 300 MG CAPSULE (FP) PO SCH (22:12)
[2017-05-12] MEDS: hydrOXYzine PAMOATE 50 MG CAPSULE (FP) PO PRN (22:13)
[2017-05-13] MEDS: GABAPENTIN 300 MG CAPSULE (FP) PO SCH ×3 (05:07→22:10)
[2017-05-13] MEDS: chlordiazePOXIDE 5 MG CAPSULE PO SCH ×2 (05:07→10:18)
[2017-05-13] MEDS: ALBUTEROL SO4 18 GM HFA INHALER IH PRN ×2 (10:17→22:12)
[2017-05-13] MEDS: BUDESONIDE/FORMETEROL FUMARATE 80/4.5 mcg INHALER IH SCH ×2 (10:17→22:11)
[2017-05-13] MEDS: PRENATAL VITAMINS W/ FOLIC ACID TABLET (FP) PO SCH (10:18)
[2017-05-13] MEDS: busPIRone HCL 10 MG TABLET (FP) PO SCH ×2 (10:18→22:10)
[2017-05-13] MEDS: RANITIDINE HCL 150 MG TABLET (FP) PO SCH ×2 (10:18→22:10)
[2017-05-13] MEDS: NICOTINE 21 MG/24 HOURS TOPICAL PATCH TD SCH (10:19)
--- NOTE | 2017-05-13 10:26 | PN ---
[facility] Progress Note (SOAP) Subjective: ANXIETY, SWEATS,TREMORS. Objective: 05/13/17 10:25 Vital Signs Temperature 96.6 F L 05/13/17 09:02 Pulse Rate 88 05/13/17 09:02 Respiratory Rate 18 05/13/17 09:02 Blood Pressure 115/82 05/13/17 09:02 O2 Sat by Pulse Oximetry (%) Laboratory Last Values WBC 4.5 K/mm3 (4.0-10.0) D 05/11/17 05:45 RBC 4.60 M/mm3 (4.00-5.60) 05/11/17 05:45 Hgb 15.4 GM/dL (11.7-16.9) 05/11/17 05:45 Hct 44.9 % (35.4-49) 05/11/17 05:45 MCV 97.6 fl (80-96) H 05/11/17 05:45 MCH 33.5 pg (25.7-33.7) 05/11/17 05:45 MCHC 34.3 g/dl (32.0-35.9) 05/11/17 05:45 RDW 14.3 % (11.9-15.9) 05/11/17 05:45 Plt Count 263 K/MM3 (134-434) D 05/11/17 05:45 MPV 9.6 fl (7.5-11.1) 05/11/17 05:45 Sodium 138 mmol/L (136-145) 05/11/17 05:45 Potassium 4.2 mmol/L (3.5-5.1) 05/11/17 05:45 Chloride 101 mmol/L (98-107) 05/11/17 05:45 Carbon Dioxide 28 mmol/L (21-32) 05/11/17 05:45 Anion Gap 9 (8-16) 05/11/17 05:45 BUN 9 mg/dL (7-18) D 05/11/17 05:45 Creatinine 0.8 mg/dL (0.7-1.3) D 05/11/17 05:45 Creat Clearance w eGFR > 60 (>60) 05/11/17 05:45 Random Glucose 117 mg/dL (74-106) H 05/11/17 05:45 Calcium 8.7 mg/dL (8.5-10.1) 05/11/17 05:45 Total Bilirubin 0.4 mg/dL (0.2-1.0) 05/11/17 05:45 AST 25 U/L (15-37) D 05/11/17 05:45 ALT 40 U/L (12-78) 05/11/17 05:45 Alkaline Phosphatase 104 U/L (45-117) 05/11/17 05:45 Total Protein 7.8 g/dl (6.4-8.2) 05/11/17 05:45 Albumin 4.1 g/dl (3.4-5.0) 05/11/17 05:45 Urine Color Straw 05/10/17 15:00 Urine Appearance Clear 05/10/17 15:00 Urine pH 5.0 (5.0-8.0) 05/10/17 15:00 Ur Specific [place] 1.008 (1.001-1.035) 05/10/17 15:00 Urine Protein Negative (NEGATIVE) 05/10/17 15:00 Urine Glucose (UA) 1+ (NEGATIVE) H 05/10/17 15:00 Urine Ketones Negative (NEGATIVE) 05/10/17 15:00 Urine Blood Negative (NEGATIVE) 05/10/17 15:00 Urine Nitrite Negative (NEGATIVE) 05/10/17 15:00 Urine Bilirubin Negative (NEGATIVE) 05/10/17 15:00 Urine Urobilinogen Negative mg/dL (0.2-1.0) 05/10/17 15:00 Ur Leukocyte Esterase Negative (NEGATIVE) 05/10/17 15:00 RPR Titer Nonreactive (NONREACTIVE) 05/11/17 05:45 Assessment: 05/13/17 10:26 WITHDRAWAL SX Plan: CONTINUE DETOX
[2017-05-13] MEDS: MESALAMINE 800 MG TABLET.DR PO SCH ×4 (10:50→22:10)
[2017-05-13] MEDS: ACETAMINOPHEN 325 MG TABLET (FP) PO PRN ×2 (15:12→20:14)
[2017-05-13] MEDS: chlordiazePOXIDE HCL 10 MG CAPSULE PO SCH ×2 (17:07→22:10)
[2017-05-13] MEDS: THIAMINE HCL 100 MG TABLET (FP) PO SCH (22:53)
[2017-05-13] MEDS: hydrOXYzine PAMOATE 50 MG CAPSULE (FP) PO PRN (23:40)
[2017-05-14] MEDS: GABAPENTIN 300 MG CAPSULE (FP) PO SCH (05:17)
[2017-05-14] MEDS: chlordiazePOXIDE HCL 10 MG CAPSULE PO SCH (05:17)
[2017-05-14 06:04] VITALS: BP 111/68; PULSE 63; TEMP 97
--- NOTE | 2017-05-14 09:00 | DS ---
[facility] Detox Discharge Summary Admission Date: 05/10/17 Discharge Date: 05/14/17 - Physical Exam Results Vital Signs: Vital Signs Temperature 97 F L 05/14/17 06:03 Pulse Rate 63 05/14/17 06:03 Respiratory Rate 18 05/14/17 06:03 Blood Pressure 111/68 05/14/17 06:03 O2 Sat by Pulse Oximetry (%) - Treatment Hospital Course: Detox Protocol Followed, Detoxed Safely, Responded well, Discharged Condition Good - Medication Discharge Medications: Ambulatory Orders Albuterol Sulfate Inhaler - [Ventolin HFA Inhaler -] 2 puff IH Q4H PRN 08/07/16 Budesonide/Formeterol Fumarate [SYMBICORT 80/4.5mcg -] 1 puff IH BID 08/07/16 Mesalamine 800 mg PO QID 08/07/16 Pantoprazole Sodium [Protonix -] 40 mg PO DAILY 08/07/16 Buspirone HCl [Buspar -] 15 mg PO BID #60 tablet 02/23/17 Gabapentin [Neurontin -] 600 mg PO TID #90 capsule 02/23/17 Paroxetine HCl [Paxil -] 30 mg PO DAILY #30 tablet 02/23/17 - Diagnosis (1) Alcohol dependence with uncomplicated withdrawal Status: Acute (2) COPD (chronic obstructive pulmonary disease) Status: Chronic Qualifiers: Emphysema type: unspecified (3) Chronic GERD Status: Chronic (4) Nicotine dependence Status: Acute Qualifiers: Nicotine product type: cigarettes Substance use status: in withdrawal Qualified Code(s): F17.213 - Nicotine dependence, cigarettes, with withdrawal (5) Ulcerative colitis Status: Chronic Qualifiers: Ulcerative colitis location: other ulcerative colitis Digestive disease complication type: without complication Qualified Code(s): K51.80 - Other ulcerative colitis without complications (6) Weight loss Status: Chronic (7) History of lobectomy of lung Status: Chronic (8) Seizure Status: Suspected
== END 2017-05-14 06:35 | disposition home or self-care (01) | DRG 897 ==
LOC: YASAS 09:03 → Y3N 12:21
PROVIDERS: ADMIT Internal Medicine; ATTEND Internal Medicine
PROC: HZ2ZZZZ Detoxification Services for Substance Abuse Treatment (ICD-10-PCS; principal; 2017-05-10)
DX: F10.230 Alcohol dependence with withdrawal, uncomplicated (principal); K51.80 Other ulcerative colitis without complications; F17.213 Nicotine dependence, cigarettes, with withdrawal; F19.24 Other psychoactive substance dependence with psychoactive substance-induced mood disorder; J44.9 Chronic obstructive pulmonary disease, unspecified; K21.9 Gastro-esophageal reflux disease without esophagitis; Z86.69 Personal history of other diseases of the nervous system and sense organs; Z68.23 Body mass index [BMI] 23.0-23.9, adult; Z85.110 Personal history of malignant carcinoid tumor of bronchus and lung; Z90.2 Acquired absence of lung [part of]
CPT/HCPCS: 36415; 80053; 81003; 85027; 86593; 93005; 93010

== ENCOUNTER 2017-06-15 08:43 | Inpatient (IN) | payer BC, OTHER ==
[2017-06-15 09:32] VITALS: BMI 20.8
--- NOTE | 2017-06-15 10:55 | HP ---
CIWA Score - CIWA Score Nausea/Vomitin-Int. Nausea w/Dry Heave Muscle Tremors: 4-Moderate,w/Arms Extend Anxiety: 4-Mod. Anxious/Guarded Agitation: 3 Paroxysmal Sweats: 3 Orientation: 0-Oriented Tacttile Disturbances: 1-Very Mild Itch/Numbness Auditory Disturbances: 0-None Visual Disturbances: 0-None Headache: 0-None Present CIWA-Ar Total Score: [address] [facility] - HPI Chief Complaint: I need help, I want detox and rehab. Allergies/Adverse Reactions: Allergies Allergy/AdvReac Type Severity Reaction Status Date / Time oxycodone HCl [From Percocet] Allergy Severe Hives Verified 06/15/17 09:43 peanut Allergy Severe Hives Verified 06/15/17 09:43 shellfish derived Allergy Severe Hives Verified 06/15/17 09:43 strawberry Allergy Severe Hives Verified 06/15/17 09:43 morphine AdvReac Severe headache Verified 06/15/17 09:43 EGG WHITE Allergy Severe Hives Uncoded 06/15/17 09:43 History of Present Illness: 56 y/o White man presented to [facility] requesting detox and rehab from alcohol. As per patient, he has been drinking alcohol since age 17 but became a major alcoholic in 1997 when his ( age 40 from [place]) in 2004. As per patient he was at [place] [facility] 4 days ago and was given librium 100mg - Ebola screening Have you traveled outside of the country in the last 21 days: No (N) Have you had contact with anyone from an Ebola affected area: No Have you been sick,other than usual withdrawal symptoms: No Do you have a fever: No - Review of Systems Constitutional: Chills, Diaphoresis EENT: reports: No Symptoms Reported Respiratory: reports: Shortness of Breath (sob occasionally from smoking) Cardiac: reports: No Symptoms Reported GI: reports: No Symptoms Reported : reports: No Symptoms Reported Musculoskeletal: reports: Back Pain Integumentary: reports: No Symptoms Reported Neuro: reports: Headache, Seizure (seizure, alcohol related 11/2 year ago), Tingling, Tremors Endocrine: reports: No Symptoms Reported Hematology: reports: No Symptoms Reported Psychiatric: reports: Orientated x3 Patient History - Patient Medical History Hx Anemia: Yes Hx Asthma: Yes Hx Chronic Obstructive Pulmonary Disease (COPD): Yes Hx Cancer: No Hx Cardiac Disorders: No Hx Congestive Heart Failure: No Hx Hypertension: No Hx Hypercholesterolemia: No Hx Pacemaker: No HX Cerebrovascular Accident: No Hx Seizures: Yes (alcohol related-last episode was a year ago) Hx Dementia: No Hx Diabetes: No Hx Gastrointestinal Disorders: Yes (ulcerative colitis, acid reflux) Hx Liver Disease: No Hx Genitourinary Disorders: No Hx Sexually Transmitted Disorders: No Hx Renal Disease (ESRD): No Hx Thyroid Disease: No Hx Human Immunodeficiency Virus (HIV): No (negative LAST 2014 ) Hx Hepatitis C: No (negative) Hx Depression: Yes Hx Suicide Attempt: No Hx Bipolar Disorder: No Hx Schizophrenia: No - Patient Surgical History Past Surgical History: Yes Hx Neurologic Surgery: No Hx Cataract Extraction: No Hx Cardiac Surgery: No Hx Lung Surgery: Yes (lung biopsy jun 2015 at , chest tube R lobectomy in (benign mass)) Hx Breast Surgery: No Hx Breast Biopsy: No Hx Abdominal Surgery: No Hx Appendectomy: No Hx Cholecystectomy: No Hx Genitourinary Surgery: No Hx Section: No Hx Orthopedic Surgery: No Other Surgical History: left inguinal hernia repair at age 4 Anesthesia Reaction: No - PPD History Previous Implant?: Yes Documented Results: Negative w/proof Implanted On Prior [facility] Admission?: Yes Date: 10/31/16 Results: 0 mm - Reproductive History Patient is a Female of Child Bearing Age (11 -55 yrs old): No (male) - Smoking Cessation Smoking history: Current every day smoker Have you smoked in the past 12 months: Yes Aproximately how many cigarettes per day: 30 Cigars Per Day: 0 Hx Chewing Tobacco Use: No Initiated information on smoking cessation: Yes 'Breaking Loose' booklet given: 06/15/17 - Substance & Tx. History Substance Use Type: Alcohol - Substances Abused Alcohol-vodka Route: Oral Frequency: Daily Amount used: 4 pts. Age of first use: 17 Date of Last Use: 06/15/17 (last drink at 7am, 4 pints) Family Disease History - Family Disease History Family Disease History: Other: Father (etoh , renal, ), Mother (etoh, sclerodoerma, ), Brother (schizophrenia) Admission Physical Exam [facility] - Vital Signs Vital Signs: Vital Signs - 24 hr 06/15/17 09:30 Temperature 95.6 F L Pulse Rate 116 H Respiratory 18 Rate Blood Pressure 123/80 - Physical General Appearance: Yes: Alcohol on Breath HEENTM: Yes: Within Normal Limits, EOMI, Hearing grossly Normal, Normal Voice ( Left temporal lesion, looks like a large wart (chronic as per patient)) Respiratory: Yes: Within Normal Limits, Lungs Clear, Normal Breath Sounds, No Respiratory Distress Breast: Yes: Within Normal Limits Cardiology: Yes: S1, S2, Tachycardia (apical rate 112 bpm) Abdominal: Yes: Normal Bowel Sounds, Non Tender, Soft Genitourinary: Yes: Within Normal Limits Back: Yes: Within Normal Limits, Normal Inspection Musculoskeletal: Yes: Within Normal Limits, full range of Motion, Gait Steady Extremities: Yes: Within Normal Limits, Normal Range of Motion Neurological: Yes: Within Normal Limits, lands resource manager II-XII NML intact, Fully Oriented, Alert Integumentary: Yes: Within Normal Limits Lymphatic: Yes: Within Normal Limits - Diagnostic (1) Alcohol dependence with uncomplicated withdrawal Current Visit: No Status: Acute (2) Nicotine dependence Current Visit: Yes Status: Chronic Qualifiers: Nicotine product type: cigarettes Substance use status: in withdrawal Qualified Code(s): F17.213 - Nicotine dependence, cigarettes, with withdrawal (3) COPD (chronic obstructive pulmonary disease) Current Visit: Yes Status: Chronic Qualifiers: Emphysema type: unspecified (4) Chronic GERD Current Visit: Yes Status: Chronic (5) Mood disorder Current Visit: Yes Status: Chronic (6) Ulcerative colitis Current Visit: Yes Status: Chronic Qualifiers: Ulcerative colitis location: other ulcerative colitis Digestive disease complication type: without complication Qualified Code(s): K51.80 - Other ulcerative colitis without complications (7) Seizure Current Visit: Yes Status: Chronic Cleared for Admission S - Detox or Rehab [facility] Level of Care: Medically Managed Detox Regimen/Protocol: Librium [facility] Breath Alcohol Content Breath Alcohol Content: 0.284 Urine Drug Screen - Results Drug Screen Negative: No Urine Drug Screen Results: BZO-Benzodiazepines
[2017-06-15] MEDS ORDERED: IBUPROFEN 400 MG TABLET (FP) PO PRN (11:25)
[2017-06-15] MEDS ORDERED: P-EPHED 60MG/TRIPROLIDI 2.5MG TABLET PO PRN (11:25)
[2017-06-15] MEDS ORDERED: MENTHOL/PHENOL 1 EACH UD MM PRN (11:25)
[2017-06-15] MEDS ORDERED: MAG HYDROX/AL HYDROX/SIMETH 30 ML UNIT-DOSE CUP PO PRN (11:25)
[2017-06-15] MEDS ORDERED: LOPERAMIDE HCL 2 MG CAPSULE PO PRN (11:25)
[2017-06-15] MEDS ORDERED: guaiFENesin/D-METHORPHAN HB 10 ML UNIT-DOSE CUPS PO PRN (11:25)
[2017-06-15] MEDS ORDERED: MAGNESIUM CITRATE 300 ML BOTTLE PO PRN (11:25)
[2017-06-15] MEDS ORDERED: MAGNESIUM HYDROX 2400MG/30ML ORAL SUSPENSION 30 ML CUP PO PRN (11:25)
[2017-06-15] MEDS ORDERED: ACETAMINOPHEN 325 MG TABLET (FP) PO PRN (11:25)
[2017-06-15] MEDS ORDERED: ALBUTEROL SO4 18 GM HFA INHALER IH PRN (11:34)
[2017-06-15] MEDS ORDERED: chlordiazePOXIDE HCL 25 MG CAPSULE PO ONE (11:41)
[2017-06-15] MEDS: PANTOPRAZOLE 40 MG TABLET (FP) PO SCH (12:49)
[2017-06-15] MEDS: NICOTINE 21 MG/24 HOURS TOPICAL PATCH TD SCH (12:51)
[2017-06-15] MEDS: MESALAMINE 800 MG TABLET.DR PO SCH ×2 (13:45→22:06)
--- NOTE | 2017-06-15 13:47 | CONSULT ---
[facility] Psychiatric Consult - Data Date of interview: 06/15/16 Admission source: [facility] Identifying data: Pt. is a 56 year old male, without kids, , and on disability. This is one of multiple admissions for patient. Pt. admitted to for alcohol dependence. Substance Abuse History: Alcohol- First used: 17 Frequency: daily Amount: 4 pints Medical History: Anemia, asthma, seizure ( alcohol related, last epiosde was one year ago), Acid reflux Psychiatric History: Pt. denies h/o psychiatric hospitalization and suicide attempts. States he is currently prescribed paxil 30mg po daily, buspar 15mg PO bid and gabapentin 600mg TID. Pt. states he gets prescriptions from his PCP or from the ER at [facility]. Physical/Sexual Abuse/Trauma History: Denies. Mental Status Exam - Mental Status Exam Alert and Oriented to: Time, Place, Person Cognitive Function: Good Patient Appearance: Unkempt Mood: Sad Affect: Mood Congruent Patient Behavior: Appropriate, Cooperative Speech Pattern: Appropriate Voice Loudness: Normal Thought Process: Goal Oriented Thought Disorder: Not Present Hallucinations: Tactile (Pt. reports tactile hallucinations only during withdrawals. ) Suicidal Ideation: Denies Homicidal Ideation: Denies Insight/Judgement: Poor Sleep: Poorly Appetite: Fair Muscle strength/Tone: Mild Hypertonicity Gait/Station: Normal Psychiatric Findings - Problem List ([place] 1, 2,3) (1) Nicotine dependence Current Visit: Yes Status: Chronic Qualifiers: Nicotine product type: cigarettes Substance use status: in withdrawal Qualified Code(s): F17.213 - Nicotine dependence, cigarettes, with withdrawal (2) Insomnia Current Visit: No Status: Acute Qualifiers: Insomnia type: unspecified Qualified Code(s): G47.00 - Insomnia, unspecified (3) Alcohol dependence Current Visit: Yes Status: Acute (4) Anxiety disorder Current Visit: Yes Status: Chronic (5) Substance induced mood disorder Current Visit: Yes Status: Chronic - Initial Treatment Plan Initial Treatment Plan: Psychoeducation provided. Detoxification in progress. Paxil 30mg PO daily + Buspar 15mg BID, and Gabapentin 600 PO TID ordered. Benefits and side effects discussed. Verbal consent given. Will continue to monitor.
[2017-06-15] MEDS: GABAPENTIN 300 MG CAPSULE (FP) PO SCH ×3 (14:53→22:06)
[2017-06-15] MEDS: chlordiazePOXIDE HCL 25 MG CAPSULE PO PRN ×2 (15:15→18:31)
[2017-06-15] MEDS: chlordiazePOXIDE HCL 25 MG CAPSULE PO SCH ×2 (16:46→22:07)
[2017-06-15] MEDS: THIAMINE HCL 100 MG TABLET (FP) PO SCH (22:05)
[2017-06-15] MEDS: PARoxetine HCL 10 MG TABLET (FP) PO SCH (22:06)
[2017-06-15] MEDS: BUDESONIDE/FORMETEROL FUMARATE 80/4.5 mcg INHALER IH SCH (22:07)
[2017-06-15 22:29] LABS: URINE APPEARANCE CLEAR; URINE BILIRUBIN NEGATIVE (NEGATIVE); URINE BLOOD 1+ (NEGATIVE); URINE COLOR STRAW; URINE GLUCOSE (UA) NEGATIVE (NEGATIVE); URINE KETONE 1+ (NEGATIVE); URINE LEUK ESTERASE NEGATIVE (NEGATIVE); URINE NITRITE NEGATIVE (NEGATIVE); URINE PROTEIN NEGATIVE (NEGATIVE); URINE UROBILINOGEN NEGATIVE mg/dL (0.2-1.0)
[2017-06-16] MEDS: chlordiazePOXIDE HCL 25 MG CAPSULE PO PRN (00:48)
[2017-06-16] MEDS: chlordiazePOXIDE HCL 25 MG CAPSULE PO SCH ×4 (05:49→22:22)
[2017-06-16] MEDS: GABAPENTIN 300 MG CAPSULE (FP) PO SCH ×3 (05:49→22:21)
[2017-06-16] MEDS: MESALAMINE 800 MG TABLET.DR PO SCH ×3 (05:51→22:21)
--- NOTE | 2017-06-16 09:35 | PN ---
S CIWA - CIWA Score Nausea/Vomitin Muscle Tremors: 3 Anxiety: 3 Agitation: 2 Paroxysmal Sweats: 1-Minimal Palms Moist Orientation: 0-Oriented Tacttile Disturbances: 1-Very Mild Itch/Numbness Auditory Disturbances: 1-Very Mild Visual Disturbances: 0-None Headache: 2-Mild CIWA-Ar Total Score: 16 BHS Progress Note (SOAP) Subjective: ALERT,IRRITABLE,ANXIOUS,INTERRUPTED SLEEP,TREMOR Objective: 06/16/17 09:32 Vital Signs Temperature 98.2 F 06/16/17 06:14 Pulse Rate 86 06/16/17 06:14 Respiratory Rate 18 06/16/17 06:14 Blood Pressure 133/85 06/16/17 06:14 O2 Sat by Pulse Oximetry (%) EKG SINUS TACHYCARDIA NO CHEST PAIN,NO SOB,NO DIZZINESS Laboratory Last Values Urine Color Straw 06/15/17 15:45 Urine Appearance Clear 06/15/17 15:45 Urine pH 5.0 (5.0-8.0) 06/15/17 15:45 Ur Specific [place] 1.010 (1.001-1.035) 06/15/17 15:45 Urine Protein Negative (NEGATIVE) 06/15/17 15:45 Urine Glucose (UA) Negative (NEGATIVE) 06/15/17 15:45 Urine Ketones 1+ (NEGATIVE) H 06/15/17 15:45 Urine Blood 1+ (NEGATIVE) H 06/15/17 15:45 Urine Nitrite Negative (NEGATIVE) 06/15/17 15:45 Urine Bilirubin Negative (NEGATIVE) 06/15/17 15:45 Urine Urobilinogen Negative mg/dL (0.2-1.0) 06/15/17 15:45 Urine WBC (Auto) <1 /hpf (3-5) 06/15/17 15:45 Urine RBC (Auto) <1 /hpf (0-3) 06/15/17 15:45 Hepatitis C Antibody <0.1 s/co ratio (0.0-0.9) 06/15/17 11:55 Assessment: 06/16/17 09:35 SYMPTOM Plan: CONTINUE DETOX
--- NOTE | 2017-06-16 09:51 | EKG ---
Test Reason : Blood Pressure : / mmHG Vent. Rate : 101 BPM Atrial Rate : 101 BPM P-R Int : 272 ms QRS Dur : 106 ms QT Int : 364 ms P-R-T Axes : 000 073 065 degrees QTc Int : 471 ms SINUS TACHYCARDIA WITH 1ST DEGREE A-V BLOCK NONSPECIFIC ST ABNORMALITY ABNORMAL ECG Confirmed by MD Ish, Enoch ([id number]) on 06/16/2017 9:51:36 AM Referred By: Confirmed By:Enoch Deng MD
[2017-06-16 09:53] LABS: CHLORIDE 106 mmol/L (98-107); HEMATOCRIT 42.6 % (35.4-49); HEMOGLOBIN 14.1 GM/dL (11.7-16.9); MCH 33.3 pg (25.7-33.7); MCHC 33.1 g/dl (32.0-35.9); MEAN CELL VOLUME 100.7 fl (80-96); MEAN PLT VOLUME 9.4 fl (7.5-11.1); PLATELET COUNT 247 K/MM3 (134-434); POTASSIUM 4.1 mmol/L (3.5-5.1); RBC 4.23 M/mm3 (4.00-5.60); RDW 15.4 % (11.9-15.9); SODIUM 141 mmol/L (136-145); WHITE BLOOD COUNT 6.1 K/mm3 (4.0-10.0)
--- NOTE | 2017-06-16 10:01 | PN ---
[facility] Progress Note Note: REPEAT EKG NSR
[2017-06-16 10:13] LABS: ALK PHOS 102 U/L (45-117); ANION GAP 12 (8-16); BILIRUBIN,TOTAL 0.6 mg/dL (0.2-1.0); BLOOD UREA NITROGEN 12 mg/dL (7-18); CALCIUM 8.5 mg/dL (8.5-10.1); CO2 23 mmol/L (21-32); CREATININE 0.8 mg/dL (0.7-1.3); GLUCOSE,RANDOM 69 mg/dL (74-106); SGOT/AST 62 U/L (15-37); SGPT/ALT 63 U/L (12-78); TOT PROT 7.3 g/dl (6.4-8.2)
[2017-06-16] MEDS: PRENATAL VITAMINS W/ FOLIC ACID TABLET (FP) PO SCH (10:23)
[2017-06-16] MEDS: NICOTINE 21 MG/24 HOURS TOPICAL PATCH TD SCH (10:23)
[2017-06-16] MEDS: BUDESONIDE/FORMETEROL FUMARATE 80/4.5 mcg INHALER IH SCH ×2 (10:23→22:22)
[2017-06-16] MEDS: PANTOPRAZOLE 40 MG TABLET (FP) PO SCH (10:24)
[2017-06-16] MEDS: hydrOXYzine PAMOATE 50 MG CAPSULE (FP) PO PRN (12:03)
[2017-06-16] MEDS ORDERED: PARoxetine HCL 10 MG TABLET (FP) PO SCH (22:00)
[2017-06-16] MEDS: THIAMINE HCL 100 MG TABLET (FP) PO SCH (22:20)
[2017-06-16] MEDS: PARoxetine HCL 10 MG TABLET (FP) PO SCH (22:22)
[2017-06-17] MEDS: chlordiazePOXIDE HCL 25 MG CAPSULE PO SCH ×2 (05:30→10:13)
[2017-06-17] MEDS: MESALAMINE 800 MG TABLET.DR PO SCH ×3 (05:31→22:11)
[2017-06-17] MEDS: GABAPENTIN 300 MG CAPSULE (FP) PO SCH ×3 (05:31→22:12)
[2017-06-17] MEDS: chlordiazePOXIDE HCL 25 MG CAPSULE PO PRN ×2 (09:38→14:11)
--- NOTE | 2017-06-17 09:56 | PN ---
S CIWA - CIWA Score Nausea/Vomitin Muscle Tremors: 3 Anxiety: 3 Agitation: 3 Paroxysmal Sweats: 1-Minimal Palms Moist Orientation: 0-Oriented Tacttile Disturbances: 1-Very Mild Itch/Numbness Auditory Disturbances: 1-Very Mild Visual Disturbances: 0-None Headache: 2-Mild CIWA-Ar Total Score: 17 BHS Progress Note (SOAP) Subjective: alert,irritable,anxious,interrupted sleep,tremor,interrupted sleep Objective: 06/17/17 09:55 Vital Signs Temperature 98.1 F 06/17/17 04:00 Pulse Rate 87 06/17/17 04:00 Respiratory Rate 17 06/17/17 04:00 Blood Pressure 130/81 06/17/17 04:00 O2 Sat by Pulse Oximetry (%) Laboratory Last Values WBC 6.1 K/mm3 (4.0-10.0) D 06/16/17 06:00 RBC 4.23 M/mm3 (4.00-5.60) 06/16/17 06:00 Hgb 14.1 GM/dL (11.7-16.9) 06/16/17 06:00 Hct 42.6 % (35.4-49) 06/16/17 06:00 MCV 100.7 fl (80-96) H 06/16/17 06:00 MCH 33.3 pg (25.7-33.7) 06/16/17 06:00 MCHC 33.1 g/dl (32.0-35.9) 06/16/17 06:00 RDW 15.4 % (11.9-15.9) 06/16/17 06:00 Plt Count 247 K/MM3 (134-434) 06/16/17 06:00 MPV 9.4 fl (7.5-11.1) 06/16/17 06:00 Sodium 141 mmol/L (136-145) 06/16/17 06:00 Potassium 4.1 mmol/L (3.5-5.1) 06/16/17 06:00 Chloride 106 mmol/L (98-107) 06/16/17 06:00 Carbon Dioxide 23 mmol/L (21-32) 06/16/17 06:00 Anion Gap 12 (8-16) 06/16/17 06:00 BUN 12 mg/dL (7-18) D 06/16/17 06:00 Creatinine 0.8 mg/dL (0.7-1.3) 06/16/17 06:00 Creat Clearance w eGFR > 60 (>60) 06/16/17 06:00 Random Glucose 69 mg/dL (74-106) L D 06/16/17 06:00 Calcium 8.5 mg/dL (8.5-10.1) 06/16/17 06:00 Total Bilirubin 0.6 mg/dL (0.2-1.0) D 06/16/17 06:00 AST 62 U/L (15-37) H D 06/16/17 06:00 ALT 63 U/L (12-78) D 06/16/17 06:00 Alkaline Phosphatase 102 U/L (45-117) 06/16/17 06:00 Total Protein 7.3 g/dl (6.4-8.2) 06/16/17 06:00 Albumin 4.0 g/dl (3.4-5.0) 06/16/17 06:00 Urine Color Straw 06/15/17 15:45 Urine Appearance Clear 06/15/17 15:45 Urine pH 5.0 (5.0-8.0) 06/15/17 15:45 Ur Specific [place] 1.010 (1.001-1.035) 06/15/17 15:45 Urine Protein Negative (NEGATIVE) 06/15/17 15:45 Urine Glucose (UA) Negative (NEGATIVE) 06/15/17 15:45 Urine Ketones 1+ (NEGATIVE) H 06/15/17 15:45 Urine Blood 1+ (NEGATIVE) H 06/15/17 15:45 Urine Nitrite Negative (NEGATIVE) 06/15/17 15:45 Urine Bilirubin Negative (NEGATIVE) 06/15/17 15:45 Urine Urobilinogen Negative mg/dL (0.2-1.0) 06/15/17 15:45 Ur Leukocyte Esterase Negative (NEGATIVE) 06/15/17 15:45 Urine WBC (Auto) <1 /hpf (3-5) 06/15/17 15:45 Urine RBC (Auto) <1 /hpf (0-3) 06/15/17 15:45 RPR Titer Nonreactive (NONREACTIVE) 06/16/17 06:00 Hepatitis C Antibody <0.1 s/co ratio (0.0-0.9) 06/15/17 11:55 Assessment: 06/17/17 09:55 withdrawal symptom Plan: continue detox,initial glucose 69,will do bgm in am
[2017-06-17] MEDS: BUDESONIDE/FORMETEROL FUMARATE 80/4.5 mcg INHALER IH SCH ×2 (10:13→22:12)
[2017-06-17] MEDS: NICOTINE 21 MG/24 HOURS TOPICAL PATCH TD SCH (10:13)
[2017-06-17] MEDS: PANTOPRAZOLE 40 MG TABLET (FP) PO SCH (10:13)
[2017-06-17] MEDS: PRENATAL VITAMINS W/ FOLIC ACID TABLET (FP) PO SCH (10:13)
[2017-06-17] MEDS ORDERED: ALBUTEROL SO4 2.5/IPRATROPIUM 0.5 INH SOL 3 ML VIAL.NEB. NEB PRN (10:18)
--- NOTE | 2017-06-17 12:35 | EKG ---
Test Reason : Blood Pressure : / mmHG Vent. Rate : 094 BPM Atrial Rate : 094 BPM P-R Int : 150 ms QRS Dur : 102 ms QT Int : 360 ms P-R-T Axes : 030 072 043 degrees QTc Int : 450 ms NORMAL SINUS RHYTHM POSSIBLE LEFT ATRIAL ENLARGEMENT BORDERLINE ECG WHEN COMPARED WITH ECG OF 15-JUN-2017 13:00, [place] INTERVAL HAS DECREASED Confirmed by LINNEA COY MD ([id number]) on 06/17/2017 12:34:34 PM Referred By: Leonila BURNS Confirmed By:LINNEA COY MD
[2017-06-17] MEDS: hydrOXYzine PAMOATE 50 MG CAPSULE (FP) PO PRN (12:37)
[2017-06-17] MEDS: chlordiazePOXIDE 5 MG CAPSULE PO SCH ×2 (17:46→22:13)
[2017-06-17] MEDS: THIAMINE HCL 100 MG TABLET (FP) PO SCH (22:11)
[2017-06-17] MEDS: PARoxetine HCL 10 MG TABLET (FP) PO SCH (22:12)
[2017-06-18] MEDS: hydrOXYzine PAMOATE 50 MG CAPSULE (FP) PO PRN ×3 (02:27→23:58)
[2017-06-18] MEDS: chlordiazePOXIDE 5 MG CAPSULE PO SCH ×2 (05:13→10:15)
[2017-06-18] MEDS: GABAPENTIN 300 MG CAPSULE (FP) PO SCH ×3 (05:14→22:18)
[2017-06-18] MEDS: MESALAMINE 800 MG TABLET.DR PO SCH ×3 (05:16→22:20)
--- NOTE | 2017-06-18 09:27 | PN ---
S Progress Note (SOAP) Subjective: ALERT,IRRITABLE,ANXIOUS,INTERRUPTED SLEEP, Objective: 06/18/17 09:27 Vital Signs Temperature 98.1 F 06/18/17 05:59 Pulse Rate 78 06/18/17 05:59 Respiratory Rate 18 06/18/17 05:59 Blood Pressure 124/57 06/18/17 05:59 O2 Sat by Pulse Oximetry (%) Assessment: 06/18/17 09:27 WITHDRAWAL SYMPTOM Plan: CONTINUE DETOX,DISCHARGE IN AM
[2017-06-18] MEDS: PANTOPRAZOLE 40 MG TABLET (FP) PO SCH (10:15)
[2017-06-18] MEDS: PRENATAL VITAMINS W/ FOLIC ACID TABLET (FP) PO SCH (10:15)
[2017-06-18] MEDS: NICOTINE 21 MG/24 HOURS TOPICAL PATCH TD SCH (10:16)
[2017-06-18] MEDS: BUDESONIDE/FORMETEROL FUMARATE 80/4.5 mcg INHALER IH SCH ×2 (10:16→23:00)
[2017-06-18] MEDS: chlordiazePOXIDE HCL 10 MG CAPSULE PO SCH ×2 (18:14→22:18)
[2017-06-18] MEDS: PARoxetine HCL 10 MG TABLET (FP) PO SCH (22:18)
[2017-06-18] MEDS: THIAMINE HCL 100 MG TABLET (FP) PO SCH (22:21)
[2017-06-19] MEDS: chlordiazePOXIDE HCL 10 MG CAPSULE PO SCH (05:17)
[2017-06-19] MEDS: MESALAMINE 800 MG TABLET.DR PO SCH (05:18)
[2017-06-19] MEDS: GABAPENTIN 300 MG CAPSULE (FP) PO SCH (05:19)
--- NOTE | 2017-06-19 08:44 | DS ---
[facility] Detox Discharge Summary Admission Date: 06/15/17 - History Present History: Alcohol Dependence Additional Comments: FOLLOW UP WITH AFTER CARE PROGRAM ARRANGEMENT Pertinent Past History: COPD GERD ULCERATIVE COLITIS SEIZURE RESTLESS LEG SYNDROME - Physical Exam Results Vital Signs: Vital Signs Temperature 97 F L 06/19/17 06:07 Pulse Rate 77 06/19/17 06:07 Respiratory Rate 18 06/19/17 06:07 Blood Pressure 121/81 06/19/17 06:07 O2 Sat by Pulse Oximetry (%) Pertinent Admission Physical Exam Findings: WITHDRAWAL SYNDROME - Treatment Hospital Course: Detox Protocol Followed, Detoxed Safely, Responded well, Discharged Condition Good Patient has Accepted a Rehab Referral to: DECLINED - Medication Discharge Medications: Ambulatory Orders Albuterol Sulfate Inhaler - [Ventolin HFA Inhaler -] 2 puff IH Q4H PRN 08/07/16 Budesonide/Formeterol Fumarate [SYMBICORT 80/4.5mcg -] 1 puff IH BID 08/07/16 Mesalamine 800 mg PO QID 08/07/16 Pantoprazole Sodium [Protonix -] 40 mg PO DAILY 08/07/16 Gabapentin [Neurontin -] 600 mg PO TID #90 capsule 02/23/17 Paroxetine HCl [Paxil -] 30 mg PO DAILY #30 tablet 02/23/17 Folic Acid - 1 mg PO DAILY 06/15/17 Multivitamins [Tab-A-Vit -] 1 tab PO DAILY 06/15/17 Thiamine HCl [Vitamin B1] 100 mg PO DAILY 06/15/17 Buspirone HCl [Buspar -] 15 mg PO BID #60 tablet 06/18/17 Gabapentin [Neurontin -] 600 mg PO TID #90 capsule 06/18/17 Paroxetine HCl [Paxil -] 30 mg PO DAILY #30 tablet 06/18/17 - Diagnosis (1) Alcohol dependence with uncomplicated withdrawal Current Visit: No Status: Acute (2) Restless leg syndrome Current Visit: Yes Status: Acute (3) COPD (chronic obstructive pulmonary disease) Current Visit: Yes Status: Chronic Qualifiers: Emphysema type: unspecified (4) Chronic GERD Current Visit: Yes Status: Chronic (5) Seizure Current Visit: Yes Status: Chronic (6) Ulcerative colitis Current Visit: Yes Status: Chronic Qualifiers: Ulcerative colitis location: other ulcerative colitis Digestive disease complication type: without complication Qualified Code(s): K51.80 - Other ulcerative colitis without complications (7) History of lobectomy of lung Current Visit: No Status: Chronic (8) Weight loss Current Visit: No Status: Chronic - AMA Did Patient Leave Against Medical Advice: No
[2017-06-19 10:08] VITALS: BP 127/97; PULSE 91; TEMP 97.3
== END 2017-06-19 09:36 | disposition home or self-care (01) | DRG 897 ==
LOC: YASAS 08:43 → Y6N 11:34
PROVIDERS: ADMIT Internal Medicine; ATTEND Internal Medicine
PROC: HZ2ZZZZ Detoxification Services for Substance Abuse Treatment (ICD-10-PCS; principal; 2017-06-15)
DX: F10.230 Alcohol dependence with withdrawal, uncomplicated (principal); G40.509 Epileptic seizures related to external causes, not intractable, without status epilepticus; K51.90 Ulcerative colitis, unspecified, without complications; F17.210 Nicotine dependence, cigarettes, uncomplicated; F41.9 Anxiety disorder, unspecified; F19.24 Other psychoactive substance dependence with psychoactive substance-induced mood disorder; F32.9 Major depressive disorder, single episode, unspecified; F39 Unspecified mood [affective] disorder; G25.81 Restless legs syndrome; J44.9 Chronic obstructive pulmonary disease, unspecified; K21.9 Gastro-esophageal reflux disease without esophagitis
CPT/HCPCS: 36415; 80053; 81003; 81015; 82962; 85027; 86593; 86803; 93005; 93010

== ENCOUNTER 2017-07-16 11:46 | Inpatient (IN) | payer BC, OTHER ==
[2017-07-16 12:03] VITALS: BMI 20.9
--- NOTE | 2017-07-16 12:47 | HP ---
CIWA Score - CIWA Score Nausea/Vomitin Muscle Tremors: 2 Anxiety: 2 Agitation: 4-Moderately Restless Paroxysmal Sweats: 2 Orientation: 4Disoriented Place/Person Tacttile Disturbances: 2-Mild Itch/Numbness/Burn Auditory Disturbances: 0-None Visual Disturbances: 0-None Headache: 0-None Present CIWA-Ar Total Score: 21 Admission ROS S - HPI Chief Complaint: "I can't take this anymore. I need to stop this." Patient is here to Detox from Alcohol. Allergies/Adverse Reactions: Allergies Allergy/AdvReac Type Severity Reaction Status Date / Time diazepam [From Valium] Allergy Severe Rash Verified 07/16/17 12:14 oxycodone HCl [From Percocet] Allergy Severe Hives Verified 07/16/17 12:03 peanut Allergy Severe Hives Verified 07/16/17 12:03 shellfish derived Allergy Severe Hives Verified 07/16/17 12:03 strawberry Allergy Severe Hives Verified 07/16/17 12:03 morphine AdvReac Severe headache Verified 07/16/17 12:03 EGG WHITE Allergy Severe Hives Uncoded 07/16/17 12:03 History of Present Illness: Patient is a 56 YO male here to detox from Alcohol. Patient has had several previous detox admissions at [facility] (last: 06/2017). Patient has also had a Detox admission at [facility] (01/2017). Longest period of sobriety in recent years: approx. 3 years (2008 - 2011). Exam Limitations: No Limitations - Ebola screening Have you traveled outside of the country in the last 21 days: No (N) Have you had contact with anyone from an Ebola affected area: No Have you been sick,other than usual withdrawal symptoms: No Do you have a fever: No - Review of Systems Constitutional: Chills, Diaphoresis, Loss of Appetite, Malaise, Night Sweats, Changes in sleep, Unintentional Wgt. Loss (Lost approx. 10 lbs. over the last 1 month.), Other (Patient ambulates with a cane.) EENT: reports: Blurred Vision, Tinnitus, Nose Congestion, Sinus Pressure Respiratory: reports: Cough, SOB with Exertion Cardiac: reports: Palpitations, Syncope (Last episode approx. 1 week ago.; was evaluated at ER.) GI: reports: Nausea, Poor Appetite, Vomiting, Indigestion, Abdominal cramping : reports: No Symptoms Reported Musculoskeletal: reports: No Symptoms Reported Integumentary: reports: Rash (Erythema on sides of neck. Patient reports that he was treated with Valium at ER last week and that erythema developed at that time. Rash was treated with hydrocortisone cream.), Other (Growth on [place] area on Left side of head. Patient reports that he has stefany evaluated for this by medical provider and will have it treated at some point in the future.) Neuro: reports: Seizure (Due to ETOH; Last episode approx. 2 weeks ago; pt. was evlauated at [facility].), Tremors Endocrine: reports: No Symptoms Reported Hematology: reports: No Symptoms Reported Psychiatric: reports: Judgement Intact, Mood/Affect Appropiate, Orientated x3, Anxious, Depressed (On meds.) Other Systems: Reviewed and Negative Patient History - Patient Medical History Hx Anemia: No Hx Asthma: Yes (Pt is on meds.) Hx Chronic Obstructive Pulmonary Disease (COPD): Yes (Emphysema; On meds.) Hx Cancer: Yes (Lung, partial removal of Lung tissue (12/2016).) Hx Cardiac Disorders: No Hx Congestive Heart Failure: No Hx Hypertension: No Hx Hypercholesterolemia: No Hx Pacemaker: No HX Cerebrovascular Accident: No Hx Seizures: Yes (etoh related last 2 weeks ago.) Hx Dementia: No Hx Diabetes: No (Occasional hypoglycemia.) Hx Gastrointestinal Disorders: Yes (Pt has a hx of ulcerative colitis) Hx Liver Disease: No Hx Genitourinary Disorders: No Hx Sexually Transmitted Disorders: No Hx Renal Disease (ESRD): No Hx Thyroid Disease: No Hx Human Immunodeficiency Virus (HIV): No (Last tested approx. 1 week ago: NEGATIVE.) Hx Hepatitis C: No (Never tested.) Hx Depression: Yes (On meds.) Hx Suicide Attempt: No (PATIENT DENIES CURRENT SI / HI.) Hx Bipolar Disorder: Yes (On meds.) Hx Schizophrenia: No Other Medical History: Restless Leg Syndrome. - Patient Surgical History Past Surgical History: Yes Hx Neurologic Surgery: No Hx Cataract Extraction: No Hx Cardiac Surgery: No Hx Lung Surgery: Yes (lung biopsy jun 2015 at , chest tube Rlobectomy in 12/28 (benign mass)) Hx Breast Surgery: No Hx Breast Biopsy: No Hx Abdominal Surgery: No Hx Appendectomy: No Hx Cholecystectomy: No Hx Genitourinary Surgery: No Hx Section: No Hx Orthopedic Surgery: No Other Surgical History: left inguinal hernia repair at age 4 Anesthesia Reaction: No - PPD History Previous Implant?: Yes Documented Results: Negative w/proof Implanted On [facility] Admission?: Yes Date: 10/31/16 Results: 0 mm PPD to be Administered?: No - Reproductive History Patient is a Female of Child Bearing Age (11 -55 yrs old): No (PATIENT IS MALE.) - Smoking Cessation Smoking history: Current every day smoker Have you smoked in the past 12 months: Yes Aproximately how many cigarettes per day: 30 Cigars Per Day: 0 Hx Chewing Tobacco Use: No Initiated information on smoking cessation: Yes 'Breaking Loose' booklet given: 07/16/17 (GIVEN TO PATIENT.) - Substance & Tx. History Hx Alcohol Use: Yes Hx Substance Use: Yes Substance Use Type: Alcohol Hx Substance Use Treatment: Yes (Previous Detox admissions at [facility] (last: 2017).) - Substances Abused Alcohol Route: Oral Frequency: Daily Amount used: 4 pints Age of first use: 17 Date of Last Use: 07/16/17 Family Disease History - Family Disease History Family Disease History: Other: Father (etoh , renal), Mother (etoh, sclerodoerma , ), Brother (schizophrenia) Admission Physical Exam S - Vital Signs Vital Signs: Vital Signs - 24 hr 07/16/17 12:02 Temperature 97.0 F L Pulse Rate 108 H Respiratory 20 Rate Blood Pressure 131/3 - Physical General Appearance: Yes: Appropriately Dressed, Moderate Distress, Intoxicated, Thin, Tremorous, Anxious HEENTM: Yes: Hearing grossly Normal, Normocephalic, Normal Voice, JOANNE, Pharynx Normal Respiratory: Yes: Chest Non-Tender, No Respiratory Distress, No Accessory Muscle Use, Wheezing Neck: Yes: No masses,lesions,Nodules, Supple, Trachea in good position Breast: Yes: Breast Exam Deferred Cardiology: Yes: Regular Rhythm, Regular Rate, S1, S2 Abdominal: Yes: Normal Bowel Sounds, Non Tender, Flat, Soft Genitourinary: Yes: Within Normal Limits Back: Yes: Normal Inspection Musculoskeletal: Yes: full range of Motion, Other (Patient ambulates with a cane.) Extremities: Yes: Normal Capillary Refill, Normal Range of Motion, Non-Tender, Tremors Neurological: Yes: Fully Oriented, Alert, Normal Mood/Affect, Normal Response Integumentary: Yes: Normal Color, Dry, Warm, Erythema (On bilateral sides of neck.) Lymphatic: Yes: Within Normal Limits - Diagnostic (1) History of seizure Current Visit: Yes Status: Chronic Comment: Due to ETOH. (2) History of ulcerative colitis Current Visit: Yes Status: Chronic (3) History of depression Current Visit: Yes Status: Chronic (4) History of bipolar disorder Current Visit: Yes Status: Chronic (5) Alcohol dependence with uncomplicated withdrawal Current Visit: Yes Status: Acute (6) Restless leg syndrome Current Visit: Yes Status: Suspected (7) COPD (chronic obstructive pulmonary disease) Current Visit: Yes Status: Chronic Qualifiers: COPD type: emphysema Emphysema type: unspecified Qualified Code(s): J43.9 - Emphysema, unspecified (8) History of lobectomy of lung Current Visit: Yes Status: Resolved Comment: sx done on 10/2016 (9) Nicotine dependence Current Visit: Yes Status: Chronic Qualifiers: Nicotine product type: cigarettes Substance use status: uncomplicated Qualified Code(s): F17.210 - Nicotine dependence, cigarettes, uncomplicated (10) Use of cane as ambulatory aid Current Visit: Yes Status: Acute (11) Asthma Current Visit: Yes Status: Acute Qualifiers: Asthma severity: mild Asthma persistence: persistent Asthma complication type: uncomplicated Qualified Code(s): J45.30 - Mild persistent asthma, uncomplicated Cleared for Admission [facility] - Detox or Rehab [facility] Level of Care: Medically Managed Detox Regimen/Protocol: Librium S Breath Alcohol Content Breath Alcohol Content: 0.405 Urine Drug Screen - Results Drug Screen Negative: No Urine Drug Screen Results: BZO-Benzodiazepines
[2017-07-16] MEDS ORDERED: IBUPROFEN 400 MG TABLET (FP) PO PRN (13:24)
[2017-07-16] MEDS ORDERED: NICOTINE POLACRILEX 4 MG GUM BUC PRN (13:24)
[2017-07-16] MEDS ORDERED: MAGNESIUM CITRATE 300 ML BOTTLE PO PRN (13:24)
[2017-07-16] MEDS ORDERED: MAG HYDROX/AL HYDROX/SIMETH 30 ML UNIT-DOSE CUP PO PRN (13:24)
[2017-07-16] MEDS ORDERED: MENTHOL/PHENOL 1 EACH UD MM PRN (13:24)
[2017-07-16] MEDS ORDERED: P-EPHED 60MG/TRIPROLIDI 2.5MG TABLET PO PRN (13:24)
[2017-07-16] MEDS ORDERED: guaiFENesin/D-METHORPHAN HB 10 ML UNIT-DOSE CUPS PO PRN (13:24)
[2017-07-16] MEDS ORDERED: MAGNESIUM HYDROX 2400MG/30ML ORAL SUSPENSION 30 ML CUP PO PRN (13:24)
[2017-07-16] MEDS ORDERED: ACETAMINOPHEN 325 MG TABLET (FP) PO PRN (13:24)
[2017-07-16] MEDS ORDERED: LOPERAMIDE HCL 2 MG CAPSULE PO PRN (13:24)
[2017-07-16] MEDS ORDERED: chlordiazePOXIDE HCL 25 MG CAPSULE PO ONE (13:44)
[2017-07-16] MEDS: BUDESONIDE/FORMETEROL FUMARATE 80/4.5 mcg INHALER IH SCH ×2 (13:45→22:27)
[2017-07-16] MEDS: HYDROCORTISONE 0.5% TOPICAL OINTMENT TUBE TP SCH ×2 (13:50→22:28)
--- NOTE | 2017-07-16 14:03 | CONSULT ---
[facility] Psychiatric Consult - Data Date of interview: 07/16/17 Admission source: [facility] Identifying data: One of multiple admissions to [facility] for this 56 y/o male seeking detox treatment on for alcohol dependence.Patient is ,no children,domiciled,unemployed and supported on [facility] benefits. Substance Abuse History: Confirmed by patient in this interview.Mr Garcia admits to daily consumption of 3-4 pints of alcohol on a daily basis.Currently intoxicated.Smoking history: Current every day smoker. Have you smoked in the past 12 months: Yes. Aproximately how many cigarettes per day: 30. Cigars Per Day: 0. Hx Chewing Tobacco Use: No. Initiated information on smoking cessation : Yes. 'Breaking Loose' booklet given: 07/16/17 (GIVEN TO PATIENT.). - Substance & Tx. History. Hx Alcohol Use: Yes. Hx Substance Use: Yes. Substance Use Type: Alcohol. Hx Substance Use Treatment: Yes (Previous Detox admissions at [facility] (last: 06/2017).). - Substances Abused. Alcohol. Route : Oral. Frequency: Daily. Amount used: 4 pints. Age of first use: 17. Date of Last Use: 07/16/17 Medical History: No change in medical profile.History taken from past records.Antecedent of treatment for lung cancer (right lobectomy in 12/2016), atrial fibrillation,bronchial asthma,COPD,anemia,GERD,pancreatitis,GERD,alcohol- related seizures and ulcerative colitis.Noted remote history of left inguinal herniorraphy (age [age]). Psychiatric History: Patient,in this interview,presents as a disorganized, inebriated and unreliable historian.Not capable of delivering a cohesive longitudinal history.Since he is already known to this jingle writer,records are retained for references.Imported note of 05/10/17 : " history of one psychiatric hospitalization ([facility]).Mr Garcia endorses MDD and Anxiety Disorder.No psychiatric OPD care after multiple discharges from [facility].Left AMA from [address] on 04/20/17." Patient reports his medications as buspar 15 mg po bid + paxil 30 mg/day + gabapentin 600 mg po tid.No formal psychiatric OPD care.It appears that Mr Garcia relies on primary care providers for medications refills.Chronically non-adherent to medications afterdischarge from detox/rehabilitation units.Patient denies history of suicide attempts. Physical/Sexual Abuse/Trauma History: No information. Additional Comment: Urine Drug Screen Results: BZO-Benzodiazepines.Noted. Mental Status Exam - Mental Status Exam Alert and Oriented to: Time (not oriented to place ; patient believes that he is at [facility]), Person Cognitive Function: Impaired Patient Appearance: Disheveled, Bizarre (tattoos on both arms + forearms) Mood: Nervous, Apprehensive, Irritable Affect: Inappropriate, Labile Patient Behavior: Inappropriate (requesting the presence of a woman in his hospital bed), Impulsive (disinhibited) Speech Pattern: Inappropriate, Rambling (not always coherent), Excessive Voice Loudness: Normal Thought Process: Loose Associations, Disorganized, Disoriented Thought Disorder: Bizarre Hallucinations: Denies Suicidal Ideation: Denies Homicidal Ideation: Denies Insight/Judgement: Poor Sleep: Fair Appetite: Fair Muscle strength/Tone: Normal Gait/Station: Normal Psychiatric Findings - Problem List ([place] 1, 2,3) (1) Alcohol intoxication Current Visit: Yes Status: Acute (2) Alcohol dependence with uncomplicated withdrawal Current Visit: Yes Status: Acute (3) Nicotine dependence Current Visit: Yes Status: Acute Qualifiers: Nicotine product type: cigarettes Substance use status: uncomplicated Qualified Code(s): F17.210 - Nicotine dependence, cigarettes, uncomplicated (4) Alcohol-induced mood disorder Current Visit: Yes Status: Acute (5) History of bipolar disorder Current Visit: Yes Status: Chronic Comment: As per records.Asymptomatic.Non- compliant with medications. - Initial Treatment Plan Initial Treatment Plan: Records revisited.Psychoeducation not suitable at this time (due to gross disorganization).Deferred until patient paul up and become more amenable to normal conversation.Detoxification initiated.Support.Close observation for unpredictable behavior.Will hold buspar,paxil and gabapentin until further orders.Falls precautions.
[2017-07-16] MEDS: NICOTINE 21 MG/24 HOURS TOPICAL PATCH TD SCH (14:29)
[2017-07-16] MEDS: chlordiazePOXIDE HCL 25 MG CAPSULE PO SCH ×2 (16:33→22:26)
[2017-07-16 17:08] LABS: HEMATOCRIT 45.1 % (35.4-49); HEMOGLOBIN 15.3 GM/dL (11.7-16.9); MCH 34.1 pg (25.7-33.7); MEAN CELL VOLUME 100.3 fl (80-96); MEAN PLT VOLUME 10.5 fl (7.5-11.1); PLATELET COUNT 209 K/MM3 (134-434); RBC 4.49 M/mm3 (4.00-5.60); RDW 14.9 % (11.9-15.9)
[2017-07-16 17:20] LABS: ALBUMIN 4.5 g/dl (3.4-5.0); ANION GAP 8 (8-16); BLOOD UREA NITROGEN 22 mg/dL (7-18); CALCIUM 8.5 mg/dL (8.5-10.1); CHLORIDE 109 mmol/L (98-107); CO2 23 mmol/L (21-32); GLUCOSE,RANDOM 84 mg/dL (74-106); POTASSIUM 4.2 mmol/L (3.5-5.1); SODIUM 140 mmol/L (136-145)
[2017-07-16 17:33] LABS: URINE APPEARANCE CLEAR; URINE BILIRUBIN NEGATIVE (NEGATIVE); URINE BLOOD NEGATIVE (NEGATIVE); URINE COLOR COLORLESS; URINE GLUCOSE (UA) NEGATIVE (NEGATIVE); URINE KETONE NEGATIVE (NEGATIVE); URINE LEUK ESTERASE NEGATIVE (NEGATIVE); URINE NITRITE NEGATIVE (NEGATIVE); URINE PROTEIN NEGATIVE (NEGATIVE); URINE UROBILINOGEN NEGATIVE mg/dL (0.2-1.0)
[2017-07-16 18:04] LABS: ALK PHOS 89 U/L (45-117); BILIRUBIN,TOTAL 0.3 mg/dL (0.2-1.0); CREATININE 0.9 mg/dL (0.7-1.3); SGOT/AST 31 U/L (15-37); SGPT/ALT 50 U/L (12-78); TOT PROT 7.8 g/dl (6.4-8.2)
[2017-07-16] MEDS: ALBUTEROL SO4 18 GM HFA INHALER IH PRN (21:17)
[2017-07-16] MEDS: MESALAMINE 800 MG TABLET.DR PO SCH (22:25)
[2017-07-16] MEDS: GABAPENTIN 300 MG CAPSULE (FP) PO SCH (22:25)
[2017-07-16] MEDS: THIAMINE HCL 100 MG TABLET (FP) PO SCH (22:26)
[2017-07-16] MEDS: hydrOXYzine PAMOATE 50 MG CAPSULE (FP) PO PRN (23:06)
[2017-07-17] MEDS: GABAPENTIN 300 MG CAPSULE (FP) PO SCH ×3 (05:10→22:26)
[2017-07-17] MEDS: MESALAMINE 800 MG TABLET.DR PO SCH ×3 (05:10→22:26)
[2017-07-17] MEDS: chlordiazePOXIDE HCL 25 MG CAPSULE PO SCH ×4 (05:10→22:26)
[2017-07-17] MEDS: BUDESONIDE/FORMETEROL FUMARATE 80/4.5 mcg INHALER IH SCH ×2 (10:20→22:25)
[2017-07-17] MEDS: PANTOPRAZOLE 40 MG TABLET (FP) PO SCH (10:20)
[2017-07-17] MEDS: HYDROCORTISONE 0.5% TOPICAL OINTMENT TUBE TP SCH ×2 (10:20→22:27)
[2017-07-17] MEDS: PRENATAL VITAMINS W/ FOLIC ACID TABLET (FP) PO SCH (10:20)
[2017-07-17] MEDS: NICOTINE 21 MG/24 HOURS TOPICAL PATCH TD SCH (10:20)
[2017-07-17] MEDS: BACITRACIN 0.9 GM PACKET TP SCH ×2 (12:53→22:26)
[2017-07-17] MEDS: chlordiazePOXIDE HCL 25 MG CAPSULE PO PRN (13:09)
--- NOTE | 2017-07-17 16:23 | PN ---
[facility] CIWA - CIWA Score Nausea/Vomitin-No Nausea/No Vomiting Muscle Tremors: 4-Moderate,w/Arms Extend Anxiety: 5 Agitation: 4-Moderately Restless Paroxysmal Sweats: 3 Orientation: 0-Oriented Tacttile Disturbances: 1-Very Mild Itch/Numbness Auditory Disturbances: 0-None Visual Disturbances: 2-Mild Sensitivity Headache: 0-None Present CIWA-Ar Total Score: 19 [facility] Progress Note (SOAP) Subjective: Sweating, Tremors, Anxious, Body Aches, Stomach Cramping. Objective: PT. A & O X 3, OBSERVED AMBULATING ON UNIT. NO ACUTE DISTRESS. 07/17/17 16:21 Vital Signs Temperature 97.0 F L 07/17/17 13:33 Pulse Rate 85 07/17/17 13:33 Respiratory Rate 18 07/17/17 13:33 Blood Pressure 143/96 07/17/17 13:33 O2 Sat by Pulse Oximetry (%) Laboratory Tests 07/16/17 07/16/17 07/16/17 13:00 13:00 13:00 WBC 8.0 D RBC 4.49 Hgb 15.3 Hct 45.1 MCV 100.3 H MCH 34.1 H MCHC 34.0 RDW 14.9 Plt Count 209 MPV 10.5 D Sodium 140 Potassium 4.2 Chloride 109 H Carbon Dioxide 23 Anion Gap 8 BUN 22 H D Creatinine 0.9 Creat Clearance w eGFR > 60 POC Glucometer Random Glucose 84 D Calcium 8.5 Total Bilirubin 0.3 D AST 31 D ALT 50 D Alkaline Phosphatase 89 Total Protein 7.8 Albumin 4.5 Urine Color Urine Appearance Urine pH Ur Specific [place] Urine Protein Urine Glucose (UA) Urine Ketones Urine Blood Urine Nitrite Urine Bilirubin Urine Urobilinogen Ur Leukocyte Esterase RPR Titer Nonreactive 07/16/17 07/16/17 07/17/17 14:24 15:00 06:05 WBC RBC Hgb Hct MCV MCH MCHC RDW Plt Count MPV Sodium Potassium Chloride Carbon Dioxide Anion Gap BUN Creatinine Creat Clearance w eGFR POC Glucometer 105 139 Random Glucose Calcium Total Bilirubin AST ALT Alkaline Phosphatase Total Protein Albumin Urine Color Colorless Urine Appearance Clear Urine pH 5.0 Ur Specific [place] 1.009 Urine Protein Negative Urine Glucose (UA) Negative Urine Ketones Negative Urine Blood Negative Urine Nitrite Negative Urine Bilirubin Negative Urine Urobilinogen Negative Ur Leukocyte Esterase Negative RPR Titer LABS NOTED. HCV AB RESULT PENDING. 07/17/17 16:22 Assessment: 07/17/17 16:22 WITHDRAWAL SYMPTOMS. Plan: CONTINUE DETOX.
[2017-07-17] MEDS: THIAMINE HCL 100 MG TABLET (FP) PO SCH (22:25)
[2017-07-17] MEDS: hydrOXYzine PAMOATE 50 MG CAPSULE (FP) PO PRN (23:24)
[2017-07-18] MEDS: chlordiazePOXIDE HCL 25 MG CAPSULE PO PRN (03:08)
[2017-07-18] MEDS: GABAPENTIN 300 MG CAPSULE (FP) PO SCH ×3 (05:44→22:07)
[2017-07-18] MEDS: MESALAMINE 800 MG TABLET.DR PO SCH ×3 (05:44→22:03)
[2017-07-18] MEDS: chlordiazePOXIDE HCL 25 MG CAPSULE PO SCH ×2 (05:44→10:12)
[2017-07-18] MEDS: BUDESONIDE/FORMETEROL FUMARATE 80/4.5 mcg INHALER IH SCH ×2 (10:11→22:02)
[2017-07-18] MEDS: PANTOPRAZOLE 40 MG TABLET (FP) PO SCH (10:11)
[2017-07-18] MEDS: BACITRACIN 0.9 GM PACKET TP SCH ×2 (10:11→22:03)
[2017-07-18] MEDS: PRENATAL VITAMINS W/ FOLIC ACID TABLET (FP) PO SCH (10:11)
[2017-07-18] MEDS: HYDROCORTISONE 0.5% TOPICAL OINTMENT TUBE TP SCH (10:12)
[2017-07-18] MEDS: NICOTINE 21 MG/24 HOURS TOPICAL PATCH TD SCH (10:12)
[2017-07-18] MEDS ORDERED: ALBUTEROL SO4 2.5/IPRATROPIUM 0.5 INH SOL 3 ML VIAL.NEB. NEB PRN (11:07)
[2017-07-18] MEDS: FLUTICASONE PROP 0.05% 16 GM NASAL SPRAY NS SCH ×2 (12:17→22:05)
--- NOTE | 2017-07-18 13:25 | EKG ---
Test Reason : Blood Pressure : / mmHG Vent. Rate : 113 BPM Atrial Rate : 113 BPM P-R Int : 154 ms QRS Dur : 100 ms QT Int : 320 ms P-R-T Axes : 049 083 041 degrees QTc Int : 438 ms SINUS TACHYCARDIA OTHERWISE NORMAL ECG WHEN COMPARED WITH ECG OF 16-JUN-2017 09:54, NO SIGNIFICANT CHANGE WAS FOUND BASELINE ARTIFACT Confirmed by MARYAM GIVENS MD ([id number]) on 07/18/2017 1:25:34 PM Referred By: Confirmed By:MARYAM GIVENS MD
--- NOTE | 2017-07-18 15:32 | PN ---
[facility] CIWA - CIWA Score Nausea/Vomitin-No Nausea/No Vomiting Muscle Tremors: 3 Anxiety: 4-Mod. Anxious/Guarded Agitation: 4-Moderately Restless Paroxysmal Sweats: 1-Minimal Palms Moist Orientation: 0-Oriented Tacttile Disturbances: 2-Mild Itch/Numbness/Burn Auditory Disturbances: 0-None Visual Disturbances: 2-Mild Sensitivity Headache: 0-None Present CIWA-Ar Total Score: 16 S Progress Note (SOAP) Subjective: Tremors, Diarrhea, Anxious, Sweating. Objective: PT A & O X 3, OBSERVED AMBULATING ON UNIT. NO ACUTE DISTRESS. 07/18/17 15:32 Vital Signs Temperature 96.8 F L 07/18/17 14:05 Pulse Rate 95 H 07/18/17 14:05 Respiratory Rate 18 07/18/17 14:05 Blood Pressure 121/85 07/18/17 14:05 O2 Sat by Pulse Oximetry (%) Laboratory Tests 07/16/17 07/16/17 07/16/17 13:00 13:00 13:00 WBC 8.0 D RBC 4.49 Hgb 15.3 Hct 45.1 MCV 100.3 H MCH 34.1 H MCHC 34.0 RDW 14.9 Plt Count 209 MPV 10.5 D Sodium 140 Potassium 4.2 Chloride 109 H Carbon Dioxide 23 Anion Gap 8 BUN 22 H D Creatinine 0.9 Creat Clearance w eGFR > 60 POC Glucometer Random Glucose 84 D Calcium 8.5 Total Bilirubin 0.3 D AST 31 D ALT 50 D Alkaline Phosphatase 89 Total Protein 7.8 Albumin 4.5 Urine Color Urine Appearance Urine pH Ur Specific [place] Urine Protein Urine Glucose (UA) Urine Ketones Urine Blood Urine Nitrite Urine Bilirubin Urine Urobilinogen Ur Leukocyte Esterase RPR Titer Nonreactive Hepatitis C Antibody 07/16/17 07/16/17 07/16/17 13:00 14:24 15:00 WBC RBC Hgb Hct MCV MCH MCHC RDW Plt Count MPV Sodium Potassium Chloride Carbon Dioxide Anion Gap BUN Creatinine Creat Clearance w eGFR POC Glucometer 105 Random Glucose Calcium Total Bilirubin AST ALT Alkaline Phosphatase Total Protein Albumin Urine Color Colorless Urine Appearance Clear Urine pH 5.0 Ur Specific [place] 1.009 Urine Protein Negative Urine Glucose (UA) Negative Urine Ketones Negative Urine Blood Negative Urine Nitrite Negative Urine Bilirubin Negative Urine Urobilinogen Negative Ur Leukocyte Esterase Negative RPR Titer Hepatitis C Antibody 0.1 07/17/17 06:05 WBC RBC Hgb Hct MCV MCH MCHC RDW Plt Count MPV Sodium Potassium Chloride Carbon Dioxide Anion Gap BUN Creatinine Creat Clearance w eGFR POC Glucometer 139 Random Glucose Calcium Total Bilirubin AST ALT Alkaline Phosphatase Total Protein Albumin Urine Color Urine Appearance Urine pH Ur Specific [place] Urine Protein Urine Glucose (UA) Urine Ketones Urine Blood Urine Nitrite Urine Bilirubin Urine Urobilinogen Ur Leukocyte Esterase RPR Titer Hepatitis C Antibody LABS NOTED. Assessment: 07/18/17 15:32 WITHDRAWAL SYMPTOMS. Plan: CONTINUE DETOX.
[2017-07-18] MEDS: chlordiazePOXIDE 5 MG CAPSULE PO SCH ×2 (17:29→22:03)
[2017-07-18] MEDS: hydrOXYzine PAMOATE 50 MG CAPSULE (FP) PO PRN ×2 (17:29→22:55)
[2017-07-18] MEDS: THIAMINE HCL 100 MG TABLET (FP) PO SCH (22:03)
[2017-07-19] MEDS: chlordiazePOXIDE HCL 25 MG CAPSULE PO PRN (02:02)
[2017-07-19] MEDS: chlordiazePOXIDE 5 MG CAPSULE PO SCH ×2 (05:49→10:03)
[2017-07-19] MEDS: GABAPENTIN 300 MG CAPSULE (FP) PO SCH ×3 (05:50→22:15)
[2017-07-19] MEDS: hydrOXYzine PAMOATE 50 MG CAPSULE (FP) PO PRN ×3 (09:14→22:15)
[2017-07-19] MEDS: MESALAMINE 800 MG TABLET.DR PO SCH ×3 (10:03→22:13)
[2017-07-19] MEDS: BUDESONIDE/FORMETEROL FUMARATE 80/4.5 mcg INHALER IH SCH ×2 (10:03→22:12)
[2017-07-19] MEDS: FLUTICASONE PROP 0.05% 16 GM NASAL SPRAY NS SCH ×2 (10:04→22:11)
[2017-07-19] MEDS: PRENATAL VITAMINS W/ FOLIC ACID TABLET (FP) PO SCH (10:04)
[2017-07-19] MEDS: NICOTINE 21 MG/24 HOURS TOPICAL PATCH TD SCH (10:04)
[2017-07-19] MEDS: PANTOPRAZOLE 40 MG TABLET (FP) PO SCH (10:04)
[2017-07-19] MEDS: BACITRACIN 0.9 GM PACKET TP SCH ×2 (10:04→22:15)
[2017-07-19] MEDS ORDERED: PARoxetine HCL 10 MG TABLET (FP) PO SCH (10:15)
--- NOTE | 2017-07-19 10:31 | PN ---
[facility] Progress Note (SOAP) Subjective: ANXIETY,PACING BACK AND FORTH AND CURSING, IRRITABILITY, SWEATS. Objective: 07/19/17 10:30 Vital Signs Temperature 97.1 F L 07/19/17 09:23 Pulse Rate 81 07/19/17 09:23 Respiratory Rate 18 07/19/17 09:23 Blood Pressure 113/70 07/19/17 09:23 O2 Sat by Pulse Oximetry (%) Laboratory Last Values WBC 8.0 K/mm3 (4.0-10.0) D 07/16/17 13:00 RBC 4.49 M/mm3 (4.00-5.60) 07/16/17 13:00 Hgb 15.3 GM/dL (11.7-16.9) 07/16/17 13:00 Hct 45.1 % (35.4-49) 07/16/17 13:00 MCV 100.3 fl (80-96) H 07/16/17 13:00 MCH 34.1 pg (25.7-33.7) H 07/16/17 13:00 MCHC 34.0 g/dl (32.0-35.9) 07/16/17 13:00 RDW 14.9 % (11.9-15.9) 07/16/17 13:00 Plt Count 209 K/MM3 (134-434) 07/16/17 13:00 MPV 10.5 fl (7.5-11.1) D 07/16/17 13:00 Sodium 140 mmol/L (136-145) 07/16/17 13:00 Potassium 4.2 mmol/L (3.5-5.1) 07/16/17 13:00 Chloride 109 mmol/L (98-107) H 07/16/17 13:00 Carbon Dioxide 23 mmol/L (21-32) 07/16/17 13:00 Anion Gap 8 (8-16) 07/16/17 13:00 BUN 22 mg/dL (7-18) H D 07/16/17 13:00 Creatinine 0.9 mg/dL (0.7-1.3) 07/16/17 13:00 Creat Clearance w eGFR > 60 (>60) 07/16/17 13:00 POC Glucometer 115 UNITS (80-120) 07/19/17 05:49 Random Glucose 84 mg/dL (74-106) D 07/16/17 13:00 Calcium 8.5 mg/dL (8.5-10.1) 07/16/17 13:00 Total Bilirubin 0.3 mg/dL (0.2-1.0) D 07/16/17 13:00 AST 31 U/L (15-37) D 07/16/17 13:00 ALT 50 U/L (12-78) D 07/16/17 13:00 Alkaline Phosphatase 89 U/L (45-117) 07/16/17 13:00 Total Protein 7.8 g/dl (6.4-8.2) 07/16/17 13:00 Albumin 4.5 g/dl (3.4-5.0) 07/16/17 13:00 Urine Color Colorless 07/16/17 15:00 Urine Appearance Clear 07/16/17 15:00 Urine pH 5.0 (5.0-8.0) 07/16/17 15:00 Ur Specific [place] 1.009 (1.001-1.035) 07/16/17 15:00 Urine Protein Negative (NEGATIVE) 07/16/17 15:00 Urine Glucose (UA) Negative (NEGATIVE) 07/16/17 15:00 Urine Ketones Negative (NEGATIVE) 07/16/17 15:00 Urine Blood Negative (NEGATIVE) 07/16/17 15:00 Urine Nitrite Negative (NEGATIVE) 07/16/17 15:00 Urine Bilirubin Negative (NEGATIVE) 07/16/17 15:00 Urine Urobilinogen Negative mg/dL (0.2-1.0) 07/16/17 15:00 Ur Leukocyte Esterase Negative (NEGATIVE) 07/16/17 15:00 RPR Titer Nonreactive (NONREACTIVE) 07/16/17 13:00 Hepatitis C Antibody 0.1 s/co ratio (0.0-0.9) 07/16/17 13:00 Assessment: 07/19/17 10:30 WITHDRAWAL SX Plan: CONTINUE DETOX [facility] 50 MG PO DIRECTED. INCREASE PO FLUIDS.
[2017-07-19] MEDS: busPIRone HCL 10 MG TABLET (FP) PO SCH ×2 (13:40→22:12)
[2017-07-19] MEDS: ALBUTEROL SO4 18 GM HFA INHALER IH PRN (14:29)
[2017-07-19] MEDS: chlordiazePOXIDE HCL 10 MG CAPSULE PO SCH ×2 (17:18→22:14)
[2017-07-19] MEDS: THIAMINE HCL 100 MG TABLET (FP) PO SCH (22:11)
[2017-07-20] MEDS: GABAPENTIN 300 MG CAPSULE (FP) PO SCH (05:16)
[2017-07-20] MEDS: chlordiazePOXIDE HCL 10 MG CAPSULE PO SCH (05:16)
[2017-07-20] MEDS: busPIRone HCL 10 MG TABLET (FP) PO SCH (05:16)
[2017-07-20] MEDS: MESALAMINE 800 MG TABLET.DR PO SCH (05:16)
[2017-07-20 06:45] VITALS: BP 124/87; PULSE 106; TEMP 97.5
--- NOTE | 2017-07-20 11:49 | DS ---
[facility] Detox Discharge Summary Admission Date: 07/16/17 Discharge Date: 07/20/17 - History Present History: Alcohol Dependence Additional Comments: DETOX COMPLETED. ALERT O X 3. PT TO FOLLOW UP WITH A PMD IN [place](PT SAYS HE IS FINDING ANOTHER DOCTOR) FOR MEDICAL MANAGEMENT. PT'S REQUESTED RX SENT TO PT'S PHARMACY. Pertinent Past History: SEE DX BELOW - Physical Exam Results Vital Signs: Vital Signs Temperature 97.5 F L 07/20/17 06:44 Pulse Rate 106 H 07/20/17 06:44 Respiratory Rate 18 07/20/17 06:44 Blood Pressure 124/87 07/20/17 06:44 O2 Sat by Pulse Oximetry (%) Pertinent Admission Physical Exam Findings: WITHDRAWAL SX Laboratory Last Values WBC 8.0 K/mm3 (4.0-10.0) D 07/16/17 13:00 RBC 4.49 M/mm3 (4.00-5.60) 07/16/17 13:00 Hgb 15.3 GM/dL (11.7-16.9) 07/16/17 13:00 Hct 45.1 % (35.4-49) 07/16/17 13:00 MCV 100.3 fl (80-96) H 07/16/17 13:00 MCH 34.1 pg (25.7-33.7) H 07/16/17 13:00 MCHC 34.0 g/dl (32.0-35.9) 07/16/17 13:00 RDW 14.9 % (11.9-15.9) 07/16/17 13:00 Plt Count 209 K/MM3 (134-434) 07/16/17 13:00 MPV 10.5 fl (7.5-11.1) D 07/16/17 13:00 Sodium 140 mmol/L (136-145) 07/16/17 13:00 Potassium 4.2 mmol/L (3.5-5.1) 07/16/17 13:00 Chloride 109 mmol/L (98-107) H 07/16/17 13:00 Carbon Dioxide 23 mmol/L (21-32) 07/16/17 13:00 Anion Gap 8 (8-16) 07/16/17 13:00 BUN 22 mg/dL (7-18) H D 07/16/17 13:00 Creatinine 0.9 mg/dL (0.7-1.3) 07/16/17 13:00 Creat Clearance w eGFR > 60 (>60) 07/16/17 13:00 POC Glucometer 98 UNITS (80-120) 07/20/17 05:18 Random Glucose 84 mg/dL (74-106) D 07/16/17 13:00 Calcium 8.5 mg/dL (8.5-10.1) 07/16/17 13:00 Total Bilirubin 0.3 mg/dL (0.2-1.0) D 07/16/17 13:00 AST 31 U/L (15-37) D 07/16/17 13:00 ALT 50 U/L (12-78) D 07/16/17 13:00 Alkaline Phosphatase 89 U/L (45-117) 07/16/17 13:00 Total Protein 7.8 g/dl (6.4-8.2) 07/16/17 13:00 Albumin 4.5 g/dl (3.4-5.0) 07/16/17 13:00 Urine Color Colorless 07/16/17 15:00 Urine Appearance Clear 07/16/17 15:00 Urine pH 5.0 (5.0-8.0) 07/16/17 15:00 Ur Specific [place] 1.009 (1.001-1.035) 07/16/17 15:00 Urine Protein Negative (NEGATIVE) 07/16/17 15:00 Urine Glucose (UA) Negative (NEGATIVE) 07/16/17 15:00 Urine Ketones Negative (NEGATIVE) 07/16/17 15:00 Urine Blood Negative (NEGATIVE) 07/16/17 15:00 Urine Nitrite Negative (NEGATIVE) 07/16/17 15:00 Urine Bilirubin Negative (NEGATIVE) 07/16/17 15:00 Urine Urobilinogen Negative mg/dL (0.2-1.0) 07/16/17 15:00 Ur Leukocyte Esterase Negative (NEGATIVE) 07/16/17 15:00 RPR Titer Nonreactive (NONREACTIVE) 07/16/17 13:00 Hepatitis C Antibody 0.1 s/co ratio (0.0-0.9) 07/16/17 13:00 - Treatment Hospital Course: Detox Protocol Followed, Detoxed Safely, Responded well, Discharged Condition Good - Medication Discharge Medications: Ambulatory Orders Albuterol Sulfate Inhaler - [Ventolin HFA Inhaler -] 2 puff IH Q4H PRN 08/07/16 Budesonide/Formeterol Fumarate [SYMBICORT 80/4.5mcg -] 1 puff IH BID 08/07/16 Mesalamine 800 mg PO TID 08/07/16 Folic Acid - 1 mg PO DAILY 06/15/17 Multivitamins [Tab-A-Vit -] 1 tab PO DAILY 06/15/17 Thiamine HCl [Vitamin B1] 100 mg PO DAILY 06/15/17 Buspirone HCl [Buspar -] 15 mg PO BID #60 tablet 06/18/17 Lipase/Protease/Amylase [Creon Dr 6,000 Units Capsule] 1 cap PO TIDCM 07/16/17 Paroxetine HCl [Paxil -] 30 mg PO HS 07/16/17 Buspirone HCl [Buspar -] 15 mg PO BID #60 tablet 07/19/17 Gabapentin [Neurontin -] 600 mg PO TID #90 capsule 07/19/17 Pantoprazole Sodium [Protonix -] 40 mg PO DAILY #30 tablet.ec 07/19/17 Paroxetine HCl [Paxil -] 30 mg PO DAILY #30 tablet 07/19/17 - Diagnosis (1) Alcohol dependence with uncomplicated withdrawal Status: Acute (2) Asthma Status: Chronic Qualifiers: Asthma severity: mild Asthma persistence: persistent Asthma complication type: uncomplicated Qualified Code(s): J45.30 - Mild persistent asthma, uncomplicated (3) Nicotine dependence Status: Acute Qualifiers: Nicotine product type: cigarettes Substance use status: in withdrawal Qualified Code(s): F17.213 - Nicotine dependence, cigarettes, with withdrawal (4) COPD (chronic obstructive pulmonary disease) Status: Chronic Qualifiers: COPD type: emphysema Emphysema type: unspecified Qualified Code(s): J43.9 - Emphysema, unspecified (5) History of seizure Status: Suspected (6) History of ulcerative colitis Status: Chronic (7) History of lobectomy of lung Status: Resolved - AMA Did Patient Leave Against Medical Advice: No
== END 2017-07-20 09:09 | disposition home or self-care (01) | DRG 897 ==
LOC: YASAS 11:46 → Y3N 12:39
PROVIDERS: ADMIT Internal Medicine; ATTEND Internal Medicine
PROC: HZ2ZZZZ Detoxification Services for Substance Abuse Treatment (ICD-10-PCS; principal; 2017-07-16)
DX: F10.230 Alcohol dependence with withdrawal, uncomplicated (principal); F10.220 Alcohol dependence with intoxication, uncomplicated; F17.213 Nicotine dependence, cigarettes, with withdrawal; F32.9 Major depressive disorder, single episode, unspecified; F31.9 Bipolar disorder, unspecified; J45.30 Mild persistent asthma, uncomplicated; J43.9 Emphysema, unspecified; G25.81 Restless legs syndrome; Z85.118 Personal history of other malignant neoplasm of bronchus and lung; R26.2 Difficulty in walking, not elsewhere classified; Z99.89 Dependence on other enabling machines and devices; Z86.69 Personal history of other diseases of the nervous system and sense organs; Z87.19 Personal history of other diseases of the digestive system; Z90.2 Acquired absence of lung [part of]; Z91.010 Allergy to peanuts; Z91.018 Allergy to other foods; Z88.5 Allergy status to narcotic agent; Z88.8 Allergy status to other drugs, medicaments and biological substances; Z91.012 Allergy to eggs
CPT/HCPCS: 36415; 80053; 81003; 82962; 85027; 86593; 86803; 93005; 93010

== ENCOUNTER 2017-08-20 10:17 | Inpatient (IN) | payer BC, OTHER ==
[2017-08-20 10:29] VITALS: BMI 20.8
--- NOTE | 2017-08-20 12:27 | HP ---
CIWA Score - CIWA Score Nausea/Vomitin Muscle Tremors: 3 Anxiety: 3 Agitation: 3 Paroxysmal Sweats: 2 Orientation: 0-Oriented Tacttile Disturbances: 2-Mild Itch/Numbness/Burn Auditory Disturbances: 2-Mild Harshness/Frighten Visual Disturbances: 1-Very Mild Sensitivity Headache: 2-Mild CIWA-Ar Total Score: 21 Admission ROS BHS - HPI Chief Complaint: I NEED HELP TO STOP DRINKING ALCOHOL Allergies/Adverse Reactions: Allergies Allergy/AdvReac Type Severity Reaction Status Date / Time diazepam [From Valium] Allergy Severe Rash Verified 08/20/17 11:26 oxycodone HCl [From Percocet] Allergy Severe Hives Verified 08/20/17 11:26 peanut Allergy Severe Hives Verified 08/20/17 11:26 shellfish derived Allergy Severe Hives Verified 08/20/17 11:26 strawberry Allergy Severe Hives Verified 08/20/17 11:26 morphine AdvReac Severe headache Verified 08/20/17 11:26 EGG WHITE Allergy Severe Hives Uncoded 08/20/17 11:26 History of Present Illness: THIS 56 YEARS OLD MALE WITH ALCOHOL DEPENDENCE SEEKING DETOX,WITHDRAWAL SYMPTOM, LAST DETOX 07/16/17 TO 07/20/17 [facility] SYNCOPE ALCOHOL RELATED LAST 1 WEEK AGO SEIZURE IN 2016 ASTHMA,COPD,GERD,ULCERATIVE COLITIS ANXIETY,DEPRESSION, LONGEST PERIOD OF SOBRIETY 3 YEARS - Ebola screening Have you traveled outside of the country in the last 21 days: No Have you had contact with anyone from an Ebola affected area: No Have you been sick,other than usual withdrawal symptoms: No Do you have a fever: No - Review of Systems Constitutional: Loss of Appetite, Malaise, Night Sweats, Changes in sleep, Weakness, Unintentional Wgt. Loss EENT: reports: Nose Congestion Respiratory: reports: No Symptoms reported, Other (ASTHMA) Cardiac: reports: No Symptoms Reported GI: reports: Diarrhea, Nausea, Vomiting, Abdominal cramping : reports: No Symptoms Reported Musculoskeletal: reports: Back Pain, Muscle Pain Integumentary: reports: Dryness Neuro: reports: Tremors Endocrine: reports: No Symptoms Reported Hematology: reports: No Symptoms Reported Psychiatric: reports: No Sypmtoms Reported, Mood/Affect Appropiate, Orientated x3, Anxious, Depressed Patient History - Patient Medical History Hx Anemia: No Hx Asthma: Yes Hx Chronic Obstructive Pulmonary Disease (COPD): Yes Hx Cancer: Yes (Lung, partial removal of Lung tissue (12/2016).) Hx Cardiac Disorders: No Hx Congestive Heart Failure: No Hx Hypertension: No Hx Hypercholesterolemia: No Hx Pacemaker: No HX Cerebrovascular Accident: No Hx Seizures: No Hx Dementia: No Hx Diabetes: No Hx Gastrointestinal Disorders: Yes (acid refluc, ulcerative colitis) Hx Liver Disease: No Hx Genitourinary Disorders: No Hx Sexually Transmitted Disorders: No Hx Renal Disease (ESRD): No Hx Thyroid Disease: No Hx Human Immunodeficiency Virus (HIV): No (07/01 NEGATIVE) Hx Hepatitis C: No (NEGATIVE 07/01 ELIE) Hx Depression: Yes Hx Suicide Attempt: No Hx Bipolar Disorder: Yes (On meds.) Hx Schizophrenia: No Other Medical History: NO SUICIDAL,NO HOMICIDAL - Patient Surgical History Past Surgical History: Yes Hx Neurologic Surgery: No Hx Cataract Extraction: No Hx Cardiac Surgery: No Hx Lung Surgery: Yes (lung biopsy jun 2015 at , chest tube Rlobectomy in 12/28 (benign mass)) Hx Breast Surgery: No Hx Breast Biopsy: No Hx Abdominal Surgery: No Hx Appendectomy: No Hx Cholecystectomy: No Hx Genitourinary Surgery: No Hx Section: No Hx Orthopedic Surgery: No Other Surgical History: left inguinal hernia repair at age 4 Anesthesia Reaction: No - PPD History Previous Implant?: Yes Documented Results: Negative w/proof Implanted On Prior [facility] Admission?: Yes Date: 10/31/16 Results: 0 mm PPD to be Administered?: No - Smoking Cessation Smoking history: Current every day smoker Have you smoked in the past 12 months: Yes Aproximately how many cigarettes per day: 30 Cigars Per Day: 0 Hx Chewing Tobacco Use: No Initiated information on smoking cessation: Yes 'Breaking Loose' booklet given: 08/20/17 - Substance & Tx. History Hx Alcohol Use: Yes Hx Substance Use: No Substance Use Type: Alcohol Hx Substance Use Treatment: Yes ([facility] 07/16/17 TO 07/20/17) - Substances Abused Alcohol-vodka Route: Oral Frequency: Daily Amount used: 4 pts. Age of first use: 17 Date of Last Use: 08/20/17 Family Disease History - Family Disease History Family Disease History: Other: Father (etoh , renal), Mother (etoh, sclerodoerma , ), Brother (schizophrenia) Admission Physical Exam [facility] - Vital Signs Vital Signs: Vital Signs - 24 hr 08/20/17 10:20 Temperature 95.3 F L Pulse Rate 118 H Respiratory 20 Rate Blood Pressure 161/97 - Physical General Appearance: Yes: Moderate Distress, Tremorous, Sweating, Anxious HEENTM: Yes: Normal ENT Inspection, JOANNE, Pharynx Normal Respiratory: Yes: Lungs Clear, Normal Breath Sounds, No Respiratory Distress Neck: Yes: Within Normal Limits, Supple, Trachea in good position Breast: Yes: Within Normal Limits Cardiology: Yes: Tachycardia Abdominal: Yes: Within Normal Limits, Non Tender, Flat, Soft Genitourinary: Yes: Within Normal Limits Back: Yes: Muscle Spasm Musculoskeletal: Yes: full range of Motion, Back pain, Muscle Pain Extremities: Yes: Tremors 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 intact, Alert, Motor Strength 5/5 Integumentary: Yes: Dry Lymphatic: Yes: Within Normal Limits - Diagnostic (1) Alcohol dependence with uncomplicated withdrawal Current Visit: Yes Status: Acute (2) Alcohol intoxication Current Visit: No Status: Acute (3) Nicotine dependence Current Visit: No Status: Acute Qualifiers: Nicotine product type: cigarettes Substance use status: in withdrawal Qualified Code(s): F17.213 - Nicotine dependence, cigarettes, with withdrawal (4) Asthma Current Visit: No Status: Chronic Qualifiers: Asthma severity: mild Asthma persistence: persistent Asthma complication type: uncomplicated Qualified Code(s): J45.30 - Mild persistent asthma, uncomplicated (5) COPD (chronic obstructive pulmonary disease) Current Visit: No Status: Chronic Qualifiers: COPD type: emphysema Emphysema type: unspecified Qualified Code(s): J43.9 - Emphysema, unspecified (6) History of ulcerative colitis Current Visit: No Status: Chronic (7) Seizure Current Visit: No Status: Chronic (8) History of lobectomy of lung Current Visit: No Status: Resolved Comment: sx done on 10/2016 (9) Weight loss Current Visit: Yes Status: Acute Cleared for Admission S - Detox or Rehab [facility] Level of Care: Medically Managed Detox Regimen/Protocol: Librium S Breath Alcohol Content Breath Alcohol Content: 0.310 Urine Drug Screen - Results Drug Screen Negative: No Urine Drug Screen Results: BZO-Benzodiazepines
[2017-08-20] MEDS ORDERED: MAGNESIUM HYDROX 2400MG/30ML ORAL SUSPENSION 30 ML CUP PO PRN (12:47)
[2017-08-20] MEDS ORDERED: MENTHOL/PHENOL 1 EACH UD MM PRN (12:47)
[2017-08-20] MEDS ORDERED: P-EPHED 60MG/TRIPROLIDI 2.5MG TABLET PO PRN (12:47)
[2017-08-20] MEDS ORDERED: guaiFENesin/D-METHORPHAN HB 10 ML UNIT-DOSE CUPS PO PRN (12:47)
[2017-08-20] MEDS ORDERED: LOPERAMIDE HCL 2 MG CAPSULE PO PRN (12:47)
[2017-08-20] MEDS ORDERED: MAGNESIUM CITRATE 300 ML BOTTLE PO PRN (12:47)
[2017-08-20] MEDS ORDERED: NICOTINE POLACRILEX 2 MG GUM BUC PRN (12:47)
[2017-08-20] MEDS ORDERED: ALBUTEROL SO4 18 GM HFA INHALER IH PRN (12:51)
[2017-08-20] MEDS ORDERED: TRIMETHOBENZAMIDE HCL 200MG/2ML INJ IM PRN (12:53)
[2017-08-20] MEDS: MESALAMINE 800 MG TABLET.DR PO SCH ×2 (14:39→22:38)
[2017-08-20] MEDS: chlordiazePOXIDE HCL 25 MG CAPSULE PO PRN ×2 (14:39→18:54)
[2017-08-20] MEDS: NICOTINE 21 MG/24 HOURS TOPICAL PATCH TD SCH (14:41)
--- NOTE | 2017-08-20 15:36 | CONSULT ---
[facility] Psychiatric Consult - Data Date of interview: 08/20/17 Admission source: [facility] Identifying data: Pt. is a 56 year old single male, without kids, and is supported by [facility]. This is one of multiple admissions for patient. Pt. admitted to detox for alcohol dependence. Substance Abuse History: Following information confirmed with Mr. Garcia: - Smoking Cessation. Smoking history: Current every day smoker. Have you smoked in the past 12 months: Yes. Aproximately how many cigarettes per day: 30. Cigars Per Day: 0. Hx Chewing Tobacco Use: No. Initiated information on smoking cessation: Yes. 'Breaking Loose' booklet given: 08/20/17. - Substance & Tx. History. Hx Alcohol Use: Yes. Hx Substance Use: No. Substance Use Type : Alcohol. Hx Substance Use Treatment: Yes ([facility] 07/16/17 TO 07/20/17). - Substances Abused. Alcohol-vodka. Route: Oral. Frequency: Daily. Amount used: 4 pts. Age of first use: 17. Date of Last Use: 08/20/17 Medical History: Acid reflux, ulcerative colitis, lung cancer (partial removal of lung tissues on 12/2016 Psychiatric History: Pt. denies h/o psychiatric hospitalization. Denies outpatient care. Pt. with a h/o accepting paxil 30mg PO daily + Buspar 15mg BID + Gabapentin 600mg TID. Pt. denies outpatient care and reports receving his medications when he admits himself to the ER or from primary care providers. States he received a refill of his medications two weeks ago while in the ER at [facility]. Pt. denies h/o suicide attempt. Physical/Sexual Abuse/Trauma History: Denies. Mental Status Exam - Mental Status Exam Alert and Oriented to: Time, Place, Person Cognitive Function: Good Patient Appearance: Unkempt Mood: Anxious Affect: Mood Congruent Patient Behavior: Cooperative Speech Pattern: Appropriate Voice Loudness: Normal Thought Process: Goal Oriented Thought Disorder: Not Present Hallucinations: Denies Suicidal Ideation: Denies Homicidal Ideation: Denies Insight/Judgement: Poor Sleep: Poorly Appetite: Poor Muscle strength/Tone: Normal Gait/Station: Normal Psychiatric Findings - Problem List ([place] 1, 2,3) (1) Alcohol dependence Current Visit: Yes Status: Acute (2) Alcohol dependence with uncomplicated withdrawal Current Visit: Yes Status: Acute (3) Alcohol-induced mood disorder Current Visit: Yes Status: Acute (4) Insomnia Current Visit: Yes Status: Acute Qualifiers: Insomnia type: unspecified Qualified Code(s): G47.00 - Insomnia, unspecified - Initial Treatment Plan Initial Treatment Plan: Psychoeducation provided. Detoxification provided. Paxil 30mg +Buspar 15mg BID + Gapabentin 300mg (reduce dosage as patient reports nonadherence to medication) TID + Melatonin 6mg ordered. Benefits and side effects discussed. Verbal consent given. Will continue to monitor
--- NOTE | 2017-08-20 15:38 | EKG ---
Test Reason : Blood Pressure : / mmHG Vent. Rate : 116 BPM Atrial Rate : 116 BPM P-R Int : 162 ms QRS Dur : 100 ms QT Int : 314 ms P-R-T Axes : 066 067 049 degrees QTc Int : 436 ms SINUS TACHYCARDIA OTHERWISE NORMAL ECG WHEN COMPARED WITH ECG OF 16-JUL-2017 13:58, NO SIGNIFICANT CHANGE WAS FOUND Confirmed by CORNELL MCKEON MD ([id number]) on 08/20/2017 3:37:55 PM Referred By: Confirmed By:CORNELL MCKEON MD
[2017-08-20] MEDS: IBUPROFEN 400 MG TABLET (FP) PO PRN (16:35)
[2017-08-20] MEDS: chlordiazePOXIDE HCL 25 MG CAPSULE PO SCH ×2 (17:20→22:38)
[2017-08-20] MEDS: MAG HYDROX/AL HYDROX/SIMETH 30 ML UNIT-DOSE CUP PO PRN (17:21)
[2017-08-20] MEDS: ACETAMINOPHEN 325 MG TABLET (FP) PO PRN ×2 (18:54→22:40)
[2017-08-20 18:58] LABS: URINE APPEARANCE CLEAR; URINE BILIRUBIN NEGATIVE (NEGATIVE); URINE BLOOD NEGATIVE (NEGATIVE); URINE COLOR YELLOW; URINE GLUCOSE (UA) NEGATIVE (NEGATIVE); URINE KETONE 1+ (NEGATIVE); URINE LEUK ESTERASE NEGATIVE (NEGATIVE); URINE NITRITE NEGATIVE (NEGATIVE); URINE UROBILINOGEN NEGATIVE mg/dL (0.2-1.0)
[2017-08-20 19:01] LABS: URINE PROTEIN 1+ (NEGATIVE)
[2017-08-20 19:03] LABS: URINE MUCUS RARE
[2017-08-20] MEDS ORDERED: MELATONIN 1 MG TABLET PO SCH (22:00)
[2017-08-20] MEDS: THIAMINE HCL 100 MG TABLET (FP) PO SCH (22:37)
[2017-08-20] MEDS: PARoxetine HCL 10 MG TABLET (FP) PO SCH (22:37)
[2017-08-20] MEDS: GABAPENTIN 300 MG CAPSULE (FP) PO SCH (22:38)
[2017-08-20] MEDS: BUDESONIDE/FORMETEROL FUMARATE 80/4.5 mcg INHALER IH SCH (22:39)
[2017-08-20] MEDS: MELATONIN 5 MG, MELATONIN 1 MG PO SCH (22:39)
[2017-08-21] MEDS: hydrOXYzine PAMOATE 25 MG CAPSULE (FP) PO PRN (03:21)
[2017-08-21] MEDS: IBUPROFEN 400 MG TABLET (FP) PO PRN (03:21)
[2017-08-21] MEDS: chlordiazePOXIDE HCL 25 MG CAPSULE PO SCH ×4 (06:00→22:39)
[2017-08-21] MEDS: MESALAMINE 800 MG TABLET.DR PO SCH ×3 (06:05→22:37)
[2017-08-21] MEDS: GABAPENTIN 300 MG CAPSULE (FP) PO SCH ×3 (06:05→22:39)
[2017-08-21 10:31] LABS: HEMATOCRIT 46.6 % (35.4-49); HEMOGLOBIN 16.2 GM/dL (11.7-16.9); MCHC 34.6 g/dl (32.0-35.9); MEAN CELL VOLUME 101.1 fl (80-96); PLATELET COUNT 240 K/MM3 (134-434); RBC 4.61 M/mm3 (4.00-5.60); RDW 14.4 % (11.9-15.9)
[2017-08-21 10:47] LABS: CHLORIDE 102 mmol/L (98-107); POTASSIUM 4.2 mmol/L (3.5-5.1); SODIUM 139 mmol/L (136-145)
[2017-08-21] MEDS: PANTOPRAZOLE 40 MG TABLET (FP) PO SCH (10:48)
[2017-08-21] MEDS: PRENATAL VITAMINS W/ FOLIC ACID TABLET (FP) PO SCH (10:48)
[2017-08-21] MEDS: BUDESONIDE/FORMETEROL FUMARATE 80/4.5 mcg INHALER IH SCH ×2 (10:49→22:39)
[2017-08-21] MEDS: NICOTINE 21 MG/24 HOURS TOPICAL PATCH TD SCH (10:49)
[2017-08-21 11:08] LABS: ALBUMIN 4.4 g/dl (3.4-5.0); ALK PHOS 97 U/L (45-117); ANION GAP 14 (8-16); BILIRUBIN,TOTAL 0.6 mg/dL (0.2-1.0); BLOOD UREA NITROGEN 13 mg/dL (7-18); CALCIUM 8.1 mg/dL (8.5-10.1); CO2 23 mmol/L (21-32); CREATININE 0.8 mg/dL (0.7-1.3); GLUCOSE,RANDOM 93 mg/dL (74-106); SGOT/AST 56 U/L (15-37); SGPT/ALT 42 U/L (12-78); TOT PROT 7.7 g/dl (6.4-8.2)
[2017-08-21] MEDS ORDERED: ONDANSETRON 4 MG TABLET PO PRN (12:05)
[2017-08-21] MEDS: chlordiazePOXIDE HCL 25 MG CAPSULE PO PRN (12:45)
--- NOTE | 2017-08-21 14:17 | PN ---
[facility] CIWA - CIWA Score Nausea/Vomitin-Int. Nausea w/Dry Heave Muscle Tremors: 3 Anxiety: 3 Agitation: 3 Paroxysmal Sweats: 3 Orientation: 0-Oriented Tacttile Disturbances: 0-None Auditory Disturbances: 0-None Visual Disturbances: 0-None Headache: 0-None Present CIWA-Ar Total Score: 16 S Progress Note (SOAP) Subjective: Nausea sweats shakes Objective: 08/21/17 14:15 A & O x3 sleeping, arousable Vital Signs Temperature 96.9 F L 08/21/17 10:00 Pulse Rate 100 H 08/21/17 10:00 Respiratory Rate 18 08/21/17 10:00 Blood Pressure 134/87 08/21/17 10:00 O2 Sat by Pulse Oximetry (%) Laboratory Last Values WBC 9.0 K/mm3 (4.0-10.0) 08/21/17 06:00 RBC 4.61 M/mm3 (4.00-5.60) 08/21/17 06:00 Hgb 16.2 GM/dL (11.7-16.9) 08/21/17 06:00 Hct 46.6 % (35.4-49) 08/21/17 06:00 MCV 101.1 fl (80-96) H 08/21/17 06:00 MCH 35.0 pg (25.7-33.7) H 08/21/17 06:00 MCHC 34.6 g/dl (32.0-35.9) 08/21/17 06:00 RDW 14.4 % (11.9-15.9) 08/21/17 06:00 Plt Count 240 K/MM3 (134-434) 08/21/17 06:00 MPV 10.0 fl (7.5-11.1) 08/21/17 06:00 Sodium 139 mmol/L (136-145) 08/21/17 06:00 Potassium 4.2 mmol/L (3.5-5.1) 08/21/17 06:00 Chloride 102 mmol/L (98-107) 08/21/17 06:00 Carbon Dioxide 23 mmol/L (21-32) 08/21/17 06:00 Anion Gap 14 (8-16) 08/21/17 06:00 BUN 13 mg/dL (7-18) D 08/21/17 06:00 Creatinine 0.8 mg/dL (0.7-1.3) 08/21/17 06:00 Creat Clearance w eGFR > 60 (>60) 08/21/17 06:00 Random Glucose 93 mg/dL (74-106) 08/21/17 06:00 Calcium 8.1 mg/dL (8.5-10.1) L 08/21/17 06:00 Total Bilirubin 0.6 mg/dL (0.2-1.0) D 08/21/17 06:00 AST 56 U/L (15-37) H D 08/21/17 06:00 ALT 42 U/L (12-78) 08/21/17 06:00 Alkaline Phosphatase 97 U/L (45-117) 08/21/17 06:00 Total Protein 7.7 g/dl (6.4-8.2) 08/21/17 06:00 Albumin 4.4 g/dl (3.4-5.0) 08/21/17 06:00 Urine Color Yellow 08/20/17 Unknown Urine Appearance Clear 08/20/17 Unknown Urine pH 5.0 (5.0-8.0) 08/20/17 Unknown Ur Specific [place] 1.016 (1.001-1.035) 08/20/17 Unknown Urine Protein 1+ (NEGATIVE) H 08/20/17 Unknown Urine Glucose (UA) Negative (NEGATIVE) 08/20/17 Unknown Urine Ketones 1+ (NEGATIVE) H 08/20/17 Unknown Urine Blood Negative (NEGATIVE) 08/20/17 Unknown Urine Nitrite Negative (NEGATIVE) 08/20/17 Unknown Urine Bilirubin Negative (NEGATIVE) 08/20/17 Unknown Urine Urobilinogen Negative mg/dL (0.2-1.0) 08/20/17 Unknown Ur Leukocyte Esterase Negative (NEGATIVE) 08/20/17 Unknown Urine WBC (Auto) 1 /hpf (3-5) 08/20/17 Unknown Urine RBC (Auto) 1 /hpf (0-3) 08/20/17 Unknown Urine Mucus Rare 08/20/17 Unknown RPR Titer Nonreactive (NONREACTIVE) 08/21/17 06:00 labs noted Assessment: 08/21/17 14:16 withdrawal sx Plan: continue detox
[2017-08-21] MEDS ORDERED: CYCLOBENZAPRINE HCL 10 MG TABLET (FP) PO PRN (15:52)
[2017-08-21] MEDS: MAG HYDROX/AL HYDROX/SIMETH 30 ML UNIT-DOSE CUP PO PRN (20:57)
[2017-08-21] MEDS: THIAMINE HCL 100 MG TABLET (FP) PO SCH (22:37)
[2017-08-21] MEDS: PARoxetine HCL 10 MG TABLET (FP) PO SCH (22:38)
[2017-08-21] MEDS: MELATONIN 5 MG, MELATONIN 1 MG PO SCH (22:40)
[2017-08-22] MEDS ORDERED: CYCLOBENZAPRINE HCL 5 MG TABLET PO PRN (05:12)
[2017-08-22] MEDS: MESALAMINE 800 MG TABLET.DR PO SCH ×3 (05:27→22:22)
[2017-08-22] MEDS: chlordiazePOXIDE HCL 25 MG CAPSULE PO SCH ×2 (05:27→10:51)
[2017-08-22] MEDS: GABAPENTIN 300 MG CAPSULE (FP) PO SCH ×3 (05:27→22:22)
[2017-08-22] MEDS: PRENATAL VITAMINS W/ FOLIC ACID TABLET (FP) PO SCH (10:51)
[2017-08-22] MEDS: NICOTINE 21 MG/24 HOURS TOPICAL PATCH TD SCH (10:51)
[2017-08-22] MEDS: BUDESONIDE/FORMETEROL FUMARATE 80/4.5 mcg INHALER IH SCH ×2 (10:51→22:21)
[2017-08-22] MEDS: PANTOPRAZOLE 40 MG TABLET (FP) PO SCH (10:51)
--- NOTE | 2017-08-22 11:45 | PN ---
S CIWA - CIWA Score Nausea/Vomitin-Mild Nausea/No Vomiting Muscle Tremors: 4-Moderate,w/Arms Extend Anxiety: 4-Mod. Anxious/Guarded Agitation: 4-Moderately Restless Paroxysmal Sweats: 1-Minimal Palms Moist Orientation: 0-Oriented Tacttile Disturbances: 1-Very Mild Itch/Numbness Auditory Disturbances: 0-None Visual Disturbances: 0-None Headache: 0-None Present CIWA-Ar Total Score: 15 BHS Progress Note (SOAP) Subjective: restlessness anxiety left leg muscle cramping sweat tremor irritable Objective: 08/22/17 11:44 Vital Signs Temperature 97.9 F 08/22/17 10:00 Pulse Rate 84 08/22/17 10:00 Respiratory Rate 20 08/22/17 10:00 Blood Pressure 126/79 08/22/17 10:00 O2 Sat by Pulse Oximetry (%) Laboratory Last Values WBC 9.0 K/mm3 (4.0-10.0) 08/21/17 06:00 RBC 4.61 M/mm3 (4.00-5.60) 08/21/17 06:00 Hgb 16.2 GM/dL (11.7-16.9) 08/21/17 06:00 Hct 46.6 % (35.4-49) 08/21/17 06:00 MCV 101.1 fl (80-96) H 08/21/17 06:00 MCH 35.0 pg (25.7-33.7) H 08/21/17 06:00 MCHC 34.6 g/dl (32.0-35.9) 08/21/17 06:00 RDW 14.4 % (11.9-15.9) 08/21/17 06:00 Plt Count 240 K/MM3 (134-434) 08/21/17 06:00 MPV 10.0 fl (7.5-11.1) 08/21/17 06:00 Sodium 139 mmol/L (136-145) 08/21/17 06:00 Potassium 4.2 mmol/L (3.5-5.1) 08/21/17 06:00 Chloride 102 mmol/L (98-107) 08/21/17 06:00 Carbon Dioxide 23 mmol/L (21-32) 08/21/17 06:00 Anion Gap 14 (8-16) 08/21/17 06:00 BUN 13 mg/dL (7-18) D 08/21/17 06:00 Creatinine 0.8 mg/dL (0.7-1.3) 08/21/17 06:00 Creat Clearance w eGFR > 60 (>60) 08/21/17 06:00 Random Glucose 93 mg/dL (74-106) 08/21/17 06:00 Calcium 8.1 mg/dL (8.5-10.1) L 08/21/17 06:00 Total Bilirubin 0.6 mg/dL (0.2-1.0) D 08/21/17 06:00 AST 56 U/L (15-37) H D 08/21/17 06:00 ALT 42 U/L (12-78) 08/21/17 06:00 Alkaline Phosphatase 97 U/L (45-117) 08/21/17 06:00 Total Protein 7.7 g/dl (6.4-8.2) 08/21/17 06:00 Albumin 4.4 g/dl (3.4-5.0) 08/21/17 06:00 Urine Color Yellow 08/20/17 Unknown Urine Appearance Clear 08/20/17 Unknown Urine pH 5.0 (5.0-8.0) 08/20/17 Unknown Ur Specific [place] 1.016 (1.001-1.035) 08/20/17 Unknown Urine Protein 1+ (NEGATIVE) H 08/20/17 Unknown Urine Glucose (UA) Negative (NEGATIVE) 08/20/17 Unknown Urine Ketones 1+ (NEGATIVE) H 08/20/17 Unknown Urine Blood Negative (NEGATIVE) 08/20/17 Unknown Urine Nitrite Negative (NEGATIVE) 08/20/17 Unknown Urine Bilirubin Negative (NEGATIVE) 08/20/17 Unknown Urine Urobilinogen Negative mg/dL (0.2-1.0) 08/20/17 Unknown Ur Leukocyte Esterase Negative (NEGATIVE) 08/20/17 Unknown Urine WBC (Auto) 1 /hpf (3-5) 08/20/17 Unknown Urine RBC (Auto) 1 /hpf (0-3) 08/20/17 Unknown Urine Mucus Rare 08/20/17 Unknown RPR Titer Nonreactive (NONREACTIVE) 08/21/17 06:00 lab noted Assessment: 08/22/17 11:44 withdrawal sx muscle cramping Plan: continue detox robaxin 500 mg qid prn
[2017-08-22] MEDS: METHOCARBAMOL 500 MG TABLET PO PRN ×3 (12:31→22:22)
[2017-08-22] MEDS: chlordiazePOXIDE 5 MG CAPSULE PO SCH ×2 (17:56→22:22)
[2017-08-22] MEDS: MELATONIN 5 MG, MELATONIN 1 MG PO SCH (22:22)
[2017-08-22] MEDS: PARoxetine HCL 10 MG TABLET (FP) PO SCH (22:22)
[2017-08-22] MEDS: THIAMINE HCL 100 MG TABLET (FP) PO SCH (22:22)
[2017-08-23] MEDS: chlordiazePOXIDE HCL 25 MG CAPSULE PO PRN (00:34)
[2017-08-23] MEDS: chlordiazePOXIDE 5 MG CAPSULE PO SCH ×2 (05:35→10:43)
[2017-08-23] MEDS: MESALAMINE 800 MG TABLET.DR PO SCH ×3 (05:35→22:18)
[2017-08-23] MEDS: GABAPENTIN 300 MG CAPSULE (FP) PO SCH ×3 (05:35→22:16)
[2017-08-23] MEDS: PRENATAL VITAMINS W/ FOLIC ACID TABLET (FP) PO SCH (10:42)
[2017-08-23] MEDS: BUDESONIDE/FORMETEROL FUMARATE 80/4.5 mcg INHALER IH SCH ×2 (10:43→22:16)
[2017-08-23] MEDS: PANTOPRAZOLE 40 MG TABLET (FP) PO SCH (10:43)
[2017-08-23] MEDS: NICOTINE 21 MG/24 HOURS TOPICAL PATCH TD SCH (10:43)
[2017-08-23] MEDS: METHOCARBAMOL 500 MG TABLET PO PRN ×3 (10:58→22:16)
[2017-08-23] MEDS ORDERED: ONDANSETRON *ODT* 4 MG TABLET SL PRN (11:29)
--- NOTE | 2017-08-23 11:45 | PN ---
S Progress Note (SOAP) Subjective: ALERT,IRRITABLE,ANXIOUS,INTERRUPTED SLEEP Objective: 08/23/17 11:44 Vital Signs Temperature 97.5 F L 08/23/17 10:33 Pulse Rate 77 08/23/17 10:33 Respiratory Rate 18 08/23/17 10:33 Blood Pressure 131/91 08/23/17 10:33 O2 Sat by Pulse Oximetry (%) Assessment: 08/23/17 11:44 WITHDRAWAL SYMPTOM Plan: CONTINUE DETOX,DISCHARGE IN AM
[2017-08-23] MEDS: MAG HYDROX/AL HYDROX/SIMETH 30 ML UNIT-DOSE CUP PO PRN (16:44)
[2017-08-23] MEDS: chlordiazePOXIDE HCL 10 MG CAPSULE PO SCH ×2 (16:44→22:16)
[2017-08-23] MEDS: PARoxetine HCL 10 MG TABLET (FP) PO SCH (22:16)
[2017-08-23] MEDS: THIAMINE HCL 100 MG TABLET (FP) PO SCH (22:16)
[2017-08-23] MEDS: MELATONIN 5 MG, MELATONIN 1 MG PO SCH (22:18)
[2017-08-24] MEDS: hydrOXYzine PAMOATE 25 MG CAPSULE (FP) PO PRN (01:59)
[2017-08-24] MEDS: chlordiazePOXIDE HCL 10 MG CAPSULE PO SCH (05:25)
[2017-08-24] MEDS: MESALAMINE 800 MG TABLET.DR PO SCH (05:26)
[2017-08-24] MEDS: GABAPENTIN 300 MG CAPSULE (FP) PO SCH (05:26)
[2017-08-24 06:12] VITALS: TEMP 97.9
--- NOTE | 2017-08-24 08:52 | PN ---
S Progress Note (SOAP) Subjective: ALERT,NO COMPLAINT Objective: 08/24/17 08:50 Vital Signs Temperature 97.9 F 08/24/17 06:12 Pulse Rate 77 08/24/17 06:12 Respiratory Rate 18 08/24/17 06:12 Blood Pressure 121/77 08/24/17 06:12 O2 Sat by Pulse Oximetry (%) Assessment: 08/24/17 08:50 DETOX COMPLETED,NO WITHDRAWAL SYMPTOM Plan: DISCHARGE TODAY,FOLLOWUP WITH AFTER CARE PROGRAM ARRANGEMENT
--- NOTE | 2017-08-24 08:55 | DS ---
[facility] Detox Discharge Summary Admission Date: 08/20/17 Discharge Date: 08/24/17 - History Present History: Alcohol Dependence, Cocaine Dependence Additional Comments: FOLLOW UP WITH AFTER CARE PROGRAM ARRANGEMENT Pertinent Past History: ASTHMA COPD NICOTINE DEPENDENCE ULCERATIVE COLITIS SEIZURE ALCOHOL RELATED HISTORY OF LOBECTOMY RIGHT WEIGHT LOSS PERIPHERAL NEUROPATHY INSOMNIA - Physical Exam Results Vital Signs: Vital Signs Temperature 97.9 F 08/24/17 06:12 Pulse Rate 77 08/24/17 06:12 Respiratory Rate 18 08/24/17 06:12 Blood Pressure 121/77 08/24/17 06:12 O2 Sat by Pulse Oximetry (%) Pertinent Admission Physical Exam Findings: WITHDRAWAL SIGNS AND SYMPTOM - Treatment Hospital Course: Detox Protocol Followed, Detoxed Safely, Responded well, Discharged Condition Good Patient has Accepted a Rehab Referral to: [facility] - Medication Discharge Medications: Ambulatory Orders Albuterol Sulfate Inhaler - [Ventolin HFA Inhaler -] 2 puff IH Q4H PRN 08/07/16 Budesonide/Formeterol Fumarate [SYMBICORT 80/4.5mcg -] 1 puff IH BID 08/07/16 Paroxetine HCl [Paxil -] 30 mg PO HS 07/16/17 Buspirone HCl [Buspar -] 15 mg PO BID #60 tablet 07/19/17 Gabapentin [Neurontin -] 600 mg PO TID #90 capsule 08/23/17 Mesalamine 800 mg PO TID #90 tablet.dr 08/23/17 Methocarbamol [Robaxin -] 500 mg PO QID PRN #12 tablet 08/23/17 Pantoprazole Sodium [Protonix -] 40 mg PO DAILY #30 tablet.ec 08/23/17 - Diagnosis (1) Alcohol dependence with uncomplicated withdrawal Current Visit: Yes Status: Acute (2) Alcohol intoxication Current Visit: No Status: Acute (3) Nicotine dependence Current Visit: No Status: Acute Qualifiers: Nicotine product type: cigarettes Substance use status: in withdrawal Qualified Code(s): F17.213 - Nicotine dependence, cigarettes, with withdrawal (4) Asthma Current Visit: No Status: Chronic Qualifiers: Asthma severity: mild Asthma persistence: persistent Asthma complication type: uncomplicated Qualified Code(s): J45.30 - Mild persistent asthma, uncomplicated (5) COPD (chronic obstructive pulmonary disease) Current Visit: No Status: Chronic Qualifiers: COPD type: emphysema Emphysema type: unspecified Qualified Code(s): J43.9 - Emphysema, unspecified (6) History of ulcerative colitis Current Visit: No Status: Chronic (7) Seizure Current Visit: No Status: Chronic (8) History of lobectomy of lung Current Visit: No Status: Resolved (9) Weight loss Current Visit: Yes Status: Acute (10) Alcohol-induced mood disorder Current Visit: Yes Status: Acute (11) Insomnia Current Visit: Yes Status: Acute Qualifiers: Insomnia type: unspecified Qualified Code(s): G47.00 - Insomnia, unspecified - AMA Did Patient Leave Against Medical Advice: No
[2017-08-24 10:03] VITALS: BP 127/89; PULSE 75
== END 2017-08-24 09:15 | disposition home or self-care (01) | DRG 897 ==
LOC: YASAS 10:17 → Y6N 12:00
PROVIDERS: ADMIT Internal Medicine; ATTEND Internal Medicine
PROC: HZ2ZZZZ Detoxification Services for Substance Abuse Treatment (ICD-10-PCS; principal; 2017-08-20)
DX: F10.230 Alcohol dependence with withdrawal, uncomplicated (principal); F10.220 Alcohol dependence with intoxication, uncomplicated; F10.24 Alcohol dependence with alcohol-induced mood disorder; F17.210 Nicotine dependence, cigarettes, uncomplicated; R00.0 Tachycardia, unspecified; J45.30 Mild persistent asthma, uncomplicated; J43.9 Emphysema, unspecified; G47.00 Insomnia, unspecified; R25.2 Cramp and spasm; K21.9 Gastro-esophageal reflux disease without esophagitis; Z85.118 Personal history of other malignant neoplasm of bronchus and lung; Z86.69 Personal history of other diseases of the nervous system and sense organs; Z87.19 Personal history of other diseases of the digestive system; Z90.2 Acquired absence of lung [part of]; Z87.898 Personal history of other specified conditions; Z91.012 Allergy to eggs; Z91.013 Allergy to seafood; Z91.010 Allergy to peanuts; Z88.5 Allergy status to narcotic agent
CPT/HCPCS: 36415; 80053; 81003; 81015; 85027; 86593; 93005; 93010